=== PATIENT | male | born 1985 | race Caucasian/White ===

== ENCOUNTER 2016-12-05 18:42 | Emergency (ER) | payer OTHER ==
[2016-12-05 18:52] VITALS: BP 153/97; PULSE 85; RESP 20; TEMP 97.3
--- NOTE | 2016-12-05 19:47 | ED ---
ENT HPI - General Chief complaint: Dental/Oral Stated complaint: tooth infection Time Seen by Provider: 12/05/16 19:21 Source: patient, RN notes reviewed Mode of arrival: ambulatory Limitations: no limitations - History of Present Illness Initial comments: Patient is a 31-year-old male presents to the emergency room for evaluation of dental pain. Patient states he has been having dental pain for the past month. Patient states he has been unable to see a dentist. Patient states over the past 4 days he has been having worsening left and right lower dental pain. Patient states he has been taking ibuprofen and applying ice on the outside of his face with no relief of symptoms. Patient denies fevers or chills. Patient states has a headache from the pain. Patient denies facial swelling. Patient denies trouble swallowing or breathing. Patient denies dental trauma recently. - Related Data Home Medications Medication Instructions Recorded Confirmed Budesonide-Formot 160-4.5 Mcg 2 puff INHALATION RT-BID 12/05/16 12/05/16 [Symbicort 160-4.5 Mcg Inhaler] Previous Rx's Medication Instructions Recorded Acetaminophen with Codeine 1 tab PO Q4H PRN #12 tab 12/05/16 [Tylenol w/codeine #3] Penicillin V Potassium [Pen Vee K] 500 mg PO QID #40 tab 12/05/16 Allergies Allergy/AdvReac Type Severity Reaction Status Date / Time No Known Allergies Allergy Verified 12/05/16 19:31 Review of Systems ROS Statement: Those systems with pertinent positive or pertinent negative responses have been documented in the HPI. ROS Other: All systems not noted in ROS Statement are negative. Past Medical History Past Medical History: No Reported History Additional Past Medical History / Comment(s): insomnia History of Any Multi-Drug Resistant Organisms: None Reported Past Surgical History: No Surgical Hx Reported Past Psychological History: Bipolar, PTSD, Schizoaffective Disorder Smoking Status: Current every day smoker Past Alcohol Use History: Occasional Past Drug Use History: Marijuana General Exam - General Exam Comments Initial Comments: Sitting in exam room, no acute distress. Limitations: no limitations General appearance: alert, in no apparent distress Head exam: Present: atraumatic, normocephalic, normal inspection Eye exam: Present: normal appearance Expanded Mouth exam: Present: normal external inspection Teeth exam: Present: dental tenderness # (Tenderness and erosion of teeth #32, 31, 17 and 18) Throat exam: normal inspection Neck exam: Present: normal inspection, full ROM. Absent: tenderness, lymphadenopathy Respiratory exam: Absent: respiratory distress Extremities exam: Present: normal inspection Back exam: Present: normal inspection Neurological exam: Present: alert, oriented X3, CN II-XII intact, normal gait Psychiatric exam: Present: normal affect, normal mood Skin exam: Present: warm, dry, intact, normal color. Absent: rash Course Vital Signs 12/05/16 18:48 Temperature 97.3 F L Pulse Rate 85 Respiratory 20 Rate Blood Pressure 153/97 O2 Sat by Pulse 97 Oximetry Medical Decision Making - Medical Decision Making Patient is 31-year-old male presents emergency room for evaluation of dental pain. Patient advised to follow-up with the dentist. No mouth floor tenderness. Patient be sent home with antibiotics and pain medications. Patient states he understands everything that was discussed with him. Return parameters discussed. Case discussed with Dr. Bailey. Disposition Clinical Impression: Dental caries, Pain due to dental caries Disposition: HOME SELF-CARE Condition: Good Instructions: Dental Caries (ED) Additional Instructions: Please follow up with a dentist. If you do not have a dentist, you may contact [facility]. Phone number is [phone] for existing clients. For new clients you may call [phone]. Another option is you have is the [facility] dental school. Phone number is [phone]. Medications as directed. [place] gargles. Cold fluids can sometimes help with pain as well. Return to the Emergency Room for any worsening or changing symptoms. Use cold compresses to the outside of the face. Prescriptions: Acetaminophen with Codeine [Tylenol w/codeine #3] 1 tab PO Q4H PRN #12 tab PRN Reason: Pain Penicillin V Potassium [Pen Vee K] 500 mg PO QID #40 tab Referrals: None,Stated [Primary Care Provider] - 1-2 days Time of Disposition: 19:42
== END 2016-12-05 19:50 | disposition home or self-care (01) ==
LOC: EC 18:42
DX: K02.9 Dental caries, unspecified (principal); R51 Headache; F17.200 Nicotine dependence, unspecified, uncomplicated; Z79.51 Long term (current) use of inhaled steroids
CPT/HCPCS: 99282

== ENCOUNTER → 2017-02-07 | Outpatient (CLI) | payer OTHER ==
--- NOTE | 2017-02-07 15:24 | MR ---
EXAMINATION TYPE: MR shoulder RT wo con DATE OF EXAM: 02/07/2017 COMPARISON: Right shoulder 05/30/2012 HISTORY: rt shoulder pain TECHNIQUE: Multiplanar, multisequence imaging of the right shoulder is performed without contrast. FINDINGS: The most recent plain film supplied shows superior displacement of the distal clavicle rela tion to the acromion compatible with acromioclavicular separation. Rotator Cuff: Intact, there is motion, some increased signal within the tendon compatible with tendin osis is suspected. Small amount of fluid in the subacromial subdeltoid bursa Acromioclavicular Joint: There is fluid signal present at the acromioclavicular joint, hypertrophic c hanges are present, small ossific density compatible with small chip fracture suspected measuring 5 m m. Suspect there is been remodeling of the distal clavicle due to prior trauma. Cortical clavicular l igament is not well-defined. Glenohumeral Joint: Intact. Labrum: The labrum appears grossly intact given limitation of non-arthrogram study. Biceps Tendon: The long head of biceps is in normal location within bicipital groove. Bone marrow signal: No focal abnormal marrow signal is appreciated. Other: No additional significant abnormality is appreciated. IMPRESSION: Findings likely represent the sequela from acromioclavicular separation, secondary osteoarthritic dereck nge may be present. Plain film correlation may be of benefit. Suspect some tendinosis in the rotator cuff, no breezy tear is evident.
== END | disposition home or self-care (01) ==
LOC: RADMRIMAIN 12:22
PROVIDERS: ATTEND Internal Medicine
DX: M25.511 Pain in right shoulder (principal)

== ENCOUNTER → 2017-09-16 | Outpatient (CLI) | payer OTHER ==
--- NOTE | 2017-09-16 12:38 | XR ---
EXAMINATION TYPE: XR spine complete AP and Lat DATE OF EXAM: 09/16/2017 COMPARISON: NONE HISTORY: Pain TECHNIQUE: Three views of the cervical spine are submitted. FINDINGS: The cervical spine is visualized in its entirety from C1 thru the top of T1 level. It is s atisfactory in alignment without evidence of acute fracture or dislocation. The pre-vertebral soft t issue appears within normal limits. The C1-C2 articulation is unremarkable on the open mouth view. Disc spaces are well preserved. IMPRESSION: No acute fracture or dislocation is seen in the cervical spine. Disc spaces are well pre served. THORACIC SPINE 2 VIEWS. TECHNIQUE: Frontal, lateral, and swimmer's view of thoracic spine are obtained. COMPARISON: None. FINDINGS: Thoracic spine show satisfactory alignment without evidence of acute fracture or dislocatio n. Vertebral body heights are preserved. Disc spaces are well preserved. Visualized ribs are unre markable. IMPRESSION: No acute fracture or dislocation is seen in the thoracic spine. Disc spaces are well pres erved. LUMBAR SPINE X-RAY: TECHNIQUE: Three views of the lumbar spine are submitted. COMPARISON: None. FINDINGS: There are 5 lumbar type vertebral bodies identified. The lumbar spine shows satisfactory alignment without evidence of acute fracture or dislocation. Vertebral body heights are within normal limits. Disc spaces are well preserved. The overlying soft tissue appears unremarkable. IMPRESSION: No acute fracture or dislocation is seen in the lumbar spine. Disc spaces are well pres erved.ICD 10 NO FRACTURE, INITIAL EVALUATION
== END | disposition home or self-care (01) ==
LOC: RADXRMAIN 11:54
PROVIDERS: ATTEND Internal Medicine
DX: R52 Pain, unspecified (principal)
CPT/HCPCS: 72082

== ENCOUNTER 2017-11-16 15:21 | Emergency (ER) | payer OTHER ==
[2017-11-16 15:25] VITALS: BP 155/62; PULSE 94; RESP 20; TEMP 98.1
[2017-11-16] MEDS ORDERED: ACET/COD 300 MG/30 MG STARTER PACK 6 TAB BTL PO STA (15:45)
[2017-11-16] MEDS ORDERED: PENICILLIN VK 500MG STARTER 4 TAB BTL PO STA (15:46)
--- NOTE | 2017-11-16 15:59 | ED ---
General Adult HPI - General Chief complaint: Dental/Oral Stated complaint: Jaw pain Time Seen by Provider: 11/16/17 15:32 Source: patient, RN notes reviewed Mode of arrival: ambulatory Limitations: no limitations - History of Present Illness Initial comments: 32-year-old male presents to the emergency department for a chief complaint of tooth pain times one day. Patient states he was eating a gummy candy yesterday when he felt a crack in his tooth broke. He has had pain ever since. Patient states the area feels a little swollen now as well. Patient denies fever or chills. Patient denies a spreading of the pain and denies radiating pain to the ear or neck. Patient states the cold air hurt it this morning when he was walking. Patient states he does not have a dentist that he follows. He states he has never broken a tooth before now. Patient denies any other complaints including visual changes or pain or stiffness in the neck. Patient states he has not driving home. - Related Data Home Medications Medication Instructions Recorded Confirmed Budesonide-Formot 160-4.5 Mcg 2 puff INHALATION RT-BID 12/05/16 12/05/16 [Symbicort 160-4.5 Mcg Inhaler] Previous Rx's Medication Instructions Recorded Acetaminophen with Codeine 1 tab PO Q4H PRN #12 tab 12/05/16 [Tylenol w/codeine #3] Penicillin V Potassium [Pen Vee K] 500 mg PO QID #40 tab 12/05/16 Acetaminophen-Codeine 300-30mg 1 tab PO Q8H PRN #10 tablet 11/16/17 [Tylenol #3] Penicillin V Potassium [Pen Vee K] 500 mg PO Q6H 10 Days tablet 11/16/17 Allergies Allergy/AdvReac Type Severity Reaction Status Date / Time No Known Allergies Allergy Verified 11/16/17 15:25 Review of Systems ROS Statement: Those systems with pertinent positive or pertinent negative responses have been documented in the HPI. ROS Other: All systems not noted in ROS Statement are negative. Past Medical History Past Medical History: No Reported History Additional Past Medical History / Comment(s): insomnia History of Any Multi-Drug Resistant Organisms: None Reported Past Surgical History: No Surgical Hx Reported Past Psychological History: Bipolar, PTSD, Schizoaffective Disorder Smoking Status: Current every day smoker Past Alcohol Use History: Occasional Past Drug Use History: Marijuana General Exam Limitations: no limitations General appearance: alert, in no apparent distress Head exam: Present: atraumatic, normocephalic, normal inspection Eye exam: Present: normal appearance, PERRL, EOMI. Absent: scleral icterus, conjunctival injection, periorbital swelling ENT exam: Present: mucous membranes moist, TM's normal bilaterally, other ( Patient has a fracture of tooth 18. No swelling noted in the oropharynx. Patient has considerable pain in the left side of the mouth when he bites down on a tongue depressor. Patient does not have too much pain when the tooth is tapped with a tongue depressor. No swelling noted on the left cheek inside or outside of the mouth.) Neck exam: Present: normal inspection, full ROM, other (Patient denies any tenderness or stiffness in the neck.). Absent: tenderness, meningismus, lymphadenopathy Respiratory exam: Present: normal lung sounds bilaterally. Absent: respiratory distress, wheezes, rales, rhonchi, stridor Cardiovascular Exam: Present: regular rate, normal rhythm, normal heart sounds. Absent: systolic murmur, diastolic murmur, rubs, gallop, clicks Course Vital Signs 11/16/17 15:23 Temperature 98.1 F Pulse Rate 94 Respiratory 20 Rate Blood Pressure 155/62 O2 Sat by Pulse 100 Oximetry Medical Decision Making - Medical Decision Making 32-year-old male presents to the emergency department for a chief complaint of tooth pain. This pain started yesterday after he ate gummy candy and he felt his tooth break. Patient does not have a dentist. This is the first time he has had a tooth break. Patient is afebrile and vitals are within normal limits. Patient denies swelling, pain, or stiffness in the neck and no external or internal swelling in the mouth is noted. Patient was given a starter pack of penicillin in the ER to start antibiotic therapy. He was given a starter pack of Tylenol 3 for pain relief. Patient states he is not driving home. He was also written a prescription for both penicillin and Tylenol 3. He was educated that he should continue to take Motrin for pain relief every 6 hours and take Tylenol 3 if the pain is too severe. Patient is to return to the emergency Department if he notices fevers or symptoms worsen. He is to follow up with [facility] in one to 2 days. He was given the contact information for the dental clinic. Disposition Clinical Impression: Tooth abscess Disposition: HOME SELF-CARE Instructions: Toothache (ED), Dental Abscess (ED) Additional Instructions: Please take penicillin as directed. Use ibuprofen for pain relief. If pain is severe use Tylenol 3. You may ice the affected area for pain relief as well. Please follow up with community dental clinic with the directions provided. Please return to the emergency department if you notice a worsening of symptoms or a spreading of infection. Prescriptions: Acetaminophen-Codeine 300-30mg [Tylenol #3] 1 tab PO Q8H PRN #10 tablet PRN Reason: Pain Penicillin V Potassium [Pen Vee K] 500 mg PO Q6H 10 Days tablet Referrals: Javy Tipton MD [Primary Care Provider] - 1-2 days Time of Disposition: 15:50
== END 2017-11-16 15:55 | disposition home or self-care (01) ==
LOC: EC 15:21
DX: K04.7 Periapical abscess without sinus (principal); F17.200 Nicotine dependence, unspecified, uncomplicated; Z79.51 Long term (current) use of inhaled steroids
CPT/HCPCS: 99283

== ENCOUNTER 2017-11-25 17:00 | Emergency (ER) | payer OTHER ==
[2017-11-25 17:31] VITALS: RESP 18
[2017-11-25] MEDS ORDERED: KETOROLAC 30 MG/ML 1 ML VIAL IVP STA (18:41)
[2017-11-25] MEDS ORDERED: SODIUM CHLORIDE 0.9% 1,000 ML IV STA (18:41)
[2017-11-25] MEDS ORDERED: ONDANSETRON 4 MG/2 ML VIAL IVP STA (18:41)
--- NOTE | 2017-11-25 19:01 | ED ---
General Adult HPI - General Chief complaint: Abdominal Pain Stated complaint: Toothache & Back pain Time Seen by Provider: 11/25/17 18:08 Source: patient Mode of arrival: ambulatory Limitations: no limitations - History of Present Illness Initial comments: 32-year-old male patient presents to the emergency department today for multiple complaints. Complaining of right lower dental pain, migraine headache , abdominal pain, constipation, and urinary retention. Patient states that he has had dental pain for quite some time. States he has had abdominal issues over the last 3-4 days. States he last urinated yesterday evening. States he hasn't had a bowel movement in a few days. States he has been vomiting. Denies any hematemesis, hematochezia, or melena. Denies any diarrhea. Denies any fever. States he does have chills. Has a past medical history of schizoaffective disorder and bipolar disorder. Denies taking any medications. Says he has not used any street drugs in over 2 weeks, states he does use tobacco but hasn't had similar in 4 days. Patient denies any recent rash, shortness breath, chest pain, back pain, numbness, tingling, dizziness, weakness , headache, visual changes, or any other complaints. - Related Data Home Medications Medication Instructions Recorded Confirmed Albuterol Inhaler [Ventolin Hfa 2 puff INHALATION RT-Q6H PRN 11/25/17 11/25/17 Inhaler] Previous Rx's Medication Instructions Recorded Acetaminophen-Codeine 300-30mg 1 tab PO Q6H PRN #12 tablet 11/25/17 [Tylenol #3] Amoxic-Pot Clav 875-125Mg 1 tab PO Q12HR #20 tablet 11/25/17 [Augmentin 875-125] Allergies Allergy/AdvReac Type Severity Reaction Status Date / Time No Known Allergies Allergy Verified 11/25/17 18:37 Review of Systems ROS Statement: Those systems with pertinent positive or pertinent negative responses have been documented in the HPI. ROS Other: All systems not noted in ROS Statement are negative. Past Medical History Past Medical History: No Reported History Additional Past Medical History / Comment(s): insomnia History of Any Multi-Drug Resistant Organisms: None Reported Past Surgical History: No Surgical Hx Reported Past Psychological History: Bipolar, PTSD, Schizoaffective Disorder Smoking Status: Current every day smoker Past Alcohol Use History: Occasional Past Drug Use History: Marijuana General Exam Limitations: no limitations General appearance: alert, in no apparent distress, other (Physical well- developed, well-nourished adult male patient in mild distress related to pain. Vital signs upon presentation are temperature 97.9F, pulse 57, respirations 18 , blood pressure 144/91, pulse ox 99% on room air.) Eye exam: Present: normal appearance, PERRL, EOMI. Absent: scleral icterus, conjunctival injection, periorbital swelling ENT exam: Present: normal exam, normal oropharynx, mucous membranes moist Respiratory exam: Present: normal lung sounds bilaterally. Absent: respiratory distress, wheezes, rales, rhonchi, stridor Cardiovascular Exam: Present: regular rate, normal rhythm, normal heart sounds. Absent: systolic murmur, diastolic murmur, rubs, gallop, clicks GI/Abdominal exam: Present: soft, tenderness (Generalized abdominal tenderness) , normal bowel sounds. Absent: distended, guarding, rebound, rigid Neurological exam: Present: alert, oriented X3, CN II-XII intact Psychiatric exam: Present: normal affect, normal mood Skin exam: Present: warm, dry, intact, normal color. Absent: rash Course Vital Signs 11/25/17 11/25/17 17:29 21:08 Temperature 97.9 F 98 F Pulse Rate 57 L 65 Respiratory 18 18 Rate Blood Pressure 144/91 123/54 O2 Sat by Pulse 99 99 Oximetry Medical Decision Making - Medical Decision Making 32-year-old male patient presented to the emergency department today with complaints of dental pain, back pain, abdominal pain, and constipation. Physical examination did reveal some paraspinal tenderness over the lower thoracic region. Abdomen was tender throughout. He also had very poor dentition with multiple broken teeth on the right lower jaw. Labs reviewed and did reveal white blood cell count of 18.6, neutrophil count of 14.8, urine showed trace ketones only. I did obtain a computed tomography scan of the abdomen and pelvis which showed no acute abnormalities. Patient is afebrile with no tachycardia. Patient did receive IV fluids and Toradol here in the department. Upon reevaluation patient is much more comfortable, states that the pain in his tooth is gone completely. Patient was currently taking penicillin for dental infection. We will change this to Augmentin. He'll be given a prescription for Tylenol 3 with codeine for dental pain. He is instructed to follow-up with the dentist as soon as possible, does report concerns for transportation he was given contact information for [facility]. Return parameters were discussed in detail. He is instructed to return here immediately for any new, worsening, or concerning symptoms. He verbalizes understanding and agrees with this plan. - Lab Data Result diagrams: 11/25/17 19:20 11/25/17 19:20 Lab Results 11/25/17 11/25/17 11/25/17 Range/Units 19:20 19:20 20:19 WBC 18.6 H (3.8-10.6) k/uL RBC 5.15 (4.30-5.90) m/uL Hgb 15.3 (13.0-17.5) gm/dL Hct 44.8 (39.0-53.0) % MCV 87.0 (80.0-100.0) fL MCH 29.7 (25.0-35.0) pg MCHC 34.1 (31.0-37.0) g/dL RDW 13.1 (11.5-15.5) % Plt Count 333 (150-450) k/uL Neutrophils % 80 % Lymphocytes % 12 % Monocytes % 6 % Eosinophils % 1 % Basophils % 0 % Neutrophils # 14.8 H (1.3-7.7) k/uL Lymphocytes # 2.3 (1.0-4.8) k/uL Monocytes # 1.1 H (0-1.0) k/uL Eosinophils # 0.2 (0-0.7) k/uL Basophils # 0.1 (0-0.2) k/uL Sodium 142 (137-145) mmol/L Potassium 4.1 (3.5-5.1) mmol/L Chloride 106 (98-107) mmol/L Carbon Dioxide 16 L (22-30) mmol/L Anion Gap 20 mmol/L BUN 18 (9-20) mg/dL Creatinine 0.80 (0.66-1.25) mg/dL Est GFR (CKD-EPI)AfAm >90 (>60 ml/min/1.73 sqM) Est GFR (CKD-EPI)NonAf >90 (>60 ml/min/1.73 sqM) Glucose 106 H (74-99) mg/dL Calcium 10.6 H (8.4-10.2) mg/dL Total Bilirubin 0.5 (0.2-1.3) mg/dL AST 20 (17-59) U/L ALT 38 (21-72) U/L Alkaline Phosphatase 71 (38-126) U/L Total Protein 8.1 (6.3-8.2) g/dL Albumin 4.5 (3.5-5.0) g/dL Amylase 51 (30-110) U/L Lipase 48 (23-300) U/L Urine Color Yellow Urine Appearance Clear (Clear) Urine pH 5.5 (5.0-8.0) Ur Specific [place] 1.019 (1.001-1.035) Urine Protein Negative (Negative) Urine Glucose (UA) Negative (Negative) Urine Ketones Trace H (Negative) Urine Blood Negative (Negative) Urine Nitrite Negative (Negative) Urine Bilirubin Negative (Negative) Urine Urobilinogen <2.0 (<2.0) mg/dL Ur Leukocyte Esterase Negative (Negative) - Radiology Data Radiology results: report reviewed, image reviewed 2 views of the abdomen showed bowel gas pattern is normal. No sign of intestinal obstruction or pneumoperitoneum. Fecal pattern is normal. Lung bases are clear. There are no pathologic calcifications. Impression shows nonacute abdomen, impression is by Dr. Esquivel CT of the abdomen and pelvis with contrast was obtained. Report was reviewed in its entirety. Impression by Dr. Esquivel shows negative computed tomography scan of the abdomen and pelvis. Normal appendix. No evidence of renal stone or obstruction. Disposition Clinical Impression: Abdominal pain, Back pain, Fractured tooth Disposition: HOME SELF-CARE Condition: Good Instructions: Abdominal Pain (ED), Toothache (ED), Back Pain (ED) Additional Instructions: Apply warm moist heat to the back. Take medications as directed. Follow-up with dentist as soon as possible. Return here immediately for any new, worsening, or concerning symptoms. Prescriptions: Acetaminophen-Codeine 300-30mg [Tylenol #3] 1 tab PO Q6H PRN #12 tablet PRN Reason: Pain Amoxic-Pot Clav 875-125Mg [Augmentin 875-125] 1 tab PO Q12HR #20 tablet Referrals: Javy Tipton MD [Primary Care Provider] - 1-2 days Time of Disposition: 21:28
[2017-11-25 19:34] LABS: Basophils # (A) 0.1 k/uL (0-0.2); Basophils % (A) 0 %; Eosinophils # (A) 0.2 k/uL (0-0.7); Eosinophils % (A) 1 %; HCT 44.8 % (39.0-53.0); HGB 15.3 gm/dL (13.0-17.5); Lymphocytes # (A) 2.3 k/uL (1.0-4.8); Lymphocytes % (A) 12 %; MCH 29.7 pg (25.0-35.0); MCHC 34.1 g/dL (31.0-37.0); Mean Platelet Volume 7.2; Monocytes # (A) 1.1 k/uL (0-1.0); Monocytes % (A) 6 %; Neutrophils # (A) 14.8 k/uL (1.3-7.7); Neutrophils % (A) 80 %; Platelet Count 333 k/uL (150-450); RBC 5.15 m/uL (4.30-5.90); RDW 13.1 % (11.5-15.5); WBC 18.6 k/uL (3.8-10.6)
--- NOTE | 2017-11-25 19:35 | XR ---
EXAMINATION TYPE: XR KUB DATE OF EXAM: 11/25/2017 COMPARISON: NONE HISTORY: Bilateral flank pain TECHNIQUE: 2 views FINDINGS: Bowel gas pattern is normal. I see no sign of intestinal obstruction or pneumoperitoneum. F ecal pattern is normal. Lung bases are clear. There are no pathologic calcifications. IMPRESSION: Nonacute abdomen.
[2017-11-25 19:48] LABS: ALT 38 U/L (21-72); AST 20 U/L (17-59); Albumin 4.5 g/dL (3.5-5.0); Alkaline Phosphatase 71 U/L (38-126); Amylase 51 U/L (30-110); Anion Gap 20 mmol/L; Blood Urea Nitrogen 18 mg/dL (9-20); Calcium 10.6 mg/dL (8.4-10.2); Carbon Dioxide 16 mmol/L (22-30); Chloride 106 mmol/L (98-107); Glucose 106 mg/dL (74-99); Lipase 48 U/L (23-300); Potassium 4.1 mmol/L (3.5-5.1); Sodium 142 mmol/L (137-145); Total Bilirubin 0.5 mg/dL (0.2-1.3); Total Protein 8.1 g/dL (6.3-8.2)
[2017-11-25 20:21] LABS: Appearance,Urine Clear (Clear); Bilirubin,Urine Negative (Negative); Blood,Urine Negative (Negative); Color,Urine Yellow; Glucose,Urine (UA) Negative (Negative); Ketones,Urine Trace (Negative); Leukocyte Esterase,Urine Negative (Negative); Nitrite,Urine Negative (Negative); PH, Urine 5.5 (5.0-8.0); Protein,Urine Negative (Negative); Specific Gravity,Urine 1.019 (1.001-1.035); Urobilinogen,Urine <2.0 mg/dL (<2.0)
[2017-11-25] MEDS ORDERED: RX INFO: IV CONTRAST WAS GIVEN 1 EACH MISC MISCELLANE PRN (20:27)
--- NOTE | 2017-11-25 21:04 | CT ---
EXAMINATION TYPE: CT abdomen pelvis w con DATE OF EXAM: 11/25/2017 COMPARISON: NONE HISTORY: Generalized abd and back pain. CT DLP: 548.2 mGycm Automated exposure control for dose reduction was used. TECHNIQUE: Helical acquisition of images was performed from the lung bases through the pelvis. CONTRAST: Performed without Oral Contrast and with IV Contrast, patient injected with 100ml mL of Isovue 300. FINDINGS: Lung bases are clear. There is no pleural effusion. Heart size is normal. Liver spleen pancreas gallbladder appear normal. Bile ducts are not dilated. There is no adrenal mass. Kidneys show satisfactory contrast opacification. There is no hydronephrosi s. There is no retroperitoneal adenopathy. Appendix appears normal. I see no intestinal wall thickening. There are no dilated loops. Bladder distends smoothly. There is no sign of a pelvic mass. I see no bony destructive process. There is no evidence of a hernia. IMPRESSION: NEGATIVE CT SCAN OF THE ABDOMEN AND PELVIS. NORMAL APPENDIX. NO EVIDENCE OF RENAL STONE OR OBSTRUCTIO N.
[2017-11-25 21:09] VITALS: BP 123/54; PULSE 65; TEMP 98
== END 2017-11-25 21:39 | disposition home or self-care (01) ==
LOC: EC 17:00
DX: S02.5XXA Fracture of tooth (traumatic), initial encounter for closed fracture (principal); R10.9 Unspecified abdominal pain; M54.9 Dorsalgia, unspecified; K59.00 Constipation, unspecified; R33.9 Retention of urine, unspecified; G43.909 Migraine, unspecified, not intractable, without status migrainosus; F17.200 Nicotine dependence, unspecified, uncomplicated
CPT/HCPCS: 99284; 96374; 96375; 96361 ×2; 36415; 80053; 82150; 83690; 85025; 81003; 74018; 74177; J2405; J1885; Q9967

== ENCOUNTER 2018-04-09 13:15 | Emergency (ER) | payer OTHER ==
[2018-04-09] MEDS ORDERED: LORazepam 2 MG/ML INJ IV STA (14:09)
--- NOTE | 2018-04-09 14:13 | ED ---
General Adult HPI - General Chief complaint: Fall Stated complaint: fall Time Seen by Provider: 04/09/18 13:52 Source: patient, RN notes reviewed Mode of arrival: wheelchair Limitations: physical limitation - History of Present Illness Initial comments: Patient is a pleasant 32-year-old male presenting to the emergency department following a fall. Patient states he was drinking alcohol at home last night. Patient fell down the flight of steps to the basement. Patient states she was able to get back up steps and then lied down and fell asleep throughout the night. Patient woke up this morning. Patient is having difficulty walking which she attributes to his discomfort on the right ribs. Patient states he has been coughing up dark looking blood since last night. Patient states bystanders told them he had a seizure when he arrived to the emergency department. Patient states he did urinate on himself during this. Patient does admit to having chronic problems with pain with his neck and right arm and he does see a neurologist for this. - Related Data Home Medications Medication Instructions Recorded Confirmed Albuterol Inhaler [Ventolin Hfa 2 puff INHALATION RT-Q6H PRN 11/25/17 04/09/18 Inhaler] tiZANidine [Zanaflex] 4 mg PO BID PRN 04/09/18 04/09/18 Allergies Allergy/AdvReac Type Severity Reaction Status Date / Time No Known Allergies Allergy Verified 04/09/18 15:13 Review of Systems ROS Statement: Those systems with pertinent positive or pertinent negative responses have been documented in the HPI. ROS Other: All systems not noted in ROS Statement are negative. Constitutional: Denies: fever Eyes: Denies: eye pain ENT: Denies: ear pain Respiratory: Reports: dyspnea, hemoptysis Cardiovascular: Reports: chest pain (Right-sided rib) Endocrine: Denies: fatigue Gastrointestinal: Denies: abdominal pain Genitourinary: Denies: dysuria Musculoskeletal: Denies: back pain Skin: Denies: rash Neurological: Denies: weakness Past Medical History Past Medical History: No Reported History Additional Past Medical History / Comment(s): insomnia History of Any Multi-Drug Resistant Organisms: None Reported Past Surgical History: No Surgical Hx Reported Past Psychological History: Bipolar, PTSD, Schizoaffective Disorder Smoking Status: Current every day smoker Past Alcohol Use History: Occasional Past Drug Use History: Marijuana General Exam Limitations: physical limitation General appearance: alert, in no apparent distress Head exam: Present: other (Soft tissue swelling over the right eyebrow) Eye exam: Present: normal appearance, PERRL, EOMI ENT exam: Present: normal oropharynx Neck exam: Present: normal inspection. Absent: tenderness Respiratory exam: Present: normal lung sounds bilaterally, chest wall tenderness (Right lateral mid ribs) Cardiovascular Exam: Present: regular rate, normal rhythm Expanded Peripheral pulses: 2+: Radial (R), Radial (L), Dorsalis Pedis (R), Dorsalis Pedis (L) GI/Abdominal exam: Present: soft, tenderness (Moderate tenderness to the upper abdomen), normal bowel sounds. Absent: distended, guarding, rebound, rigid, pulsatile mass Extremities exam: Present: normal inspection, full ROM. Absent: tenderness Neurological exam: Present: alert, oriented X3, CN II-XII intact. Absent: motor sensory deficit Expanded Neurological exam: Present: protecting the airway Speech: Present: fluid speech Cranial nerves: Facial Sensation: Normal Sensory exam: Upper Extremity Light Touch: Normal, Lower Extremity Light Touch: Normal Motor strength exam: RUE: 5, LUE: 5, RLE: 5 (Somewhat limited by pain), LLE: 5 ( Somewhat limited by pain) Eye Response: (4) open spontaneously Motor Response: (6) obeys commands Verbal Response: (5) oriented Psychiatric exam: Present: normal affect, normal mood Skin exam: Present: other (Soft tissue swelling right eyebrow) Course Vital Signs 04/09/18 04/09/18 13:28 15:33 Temperature 97.4 F L Pulse Rate 59 L 65 Respiratory 20 18 Rate Blood Pressure 107/62 124/75 O2 Sat by Pulse 99 96 Oximetry EKG Findings - EKG Comments: EKG Findings:: Sinus bradycardia 58. MD 128. QRS 84. QT 416. QTC 408. Normal axis. Normal QRS. No acute ST change. Medical Decision Making - Medical Decision Making Patient reevaluated and resting comfortably in bed. Patient family updated on results and plan. Secondary to syncopal versus seizure following, last night as well as a seizure upon arrival here it is felt best to have patient observed overnight. Secondary to neurology unable to evaluate patient. Case was discussed in detail with Dr. Jeffrey at [facility], who will accept transfer. Patient is updated. Patient states normally he is not a big drinker of alcohol. - Lab Data Result diagrams: 04/09/18 14:11 04/09/18 14:11 Lab Results 04/09/18 04/09/18 04/09/18 Range/Units 14:11 14:11 14:11 WBC 14.3 H (3.8-10.6) k/uL RBC 4.72 (4.30-5.90) m/uL Hgb 14.3 (13.0-17.5) gm/dL Hct 43.6 (39.0-53.0) % MCV 92.3 (80.0-100.0) fL MCH 30.3 (25.0-35.0) pg MCHC 32.8 (31.0-37.0) g/dL RDW 13.8 (11.5-15.5) % Plt Count 212 (150-450) k/uL Neutrophils % 84 % Lymphocytes % 8 % Monocytes % 6 % Eosinophils % 1 % Basophils % 0 % Neutrophils # 12.1 H (1.3-7.7) k/uL Lymphocytes # 1.2 (1.0-4.8) k/uL Monocytes # 0.8 (0-1.0) k/uL Eosinophils # 0.1 (0-0.7) k/uL Basophils # 0.0 (0-0.2) k/uL PT (9.0-12.0) sec INR (<1.2) APTT (22.0-30.0) sec Sodium 139 (137-145) mmol/L Potassium 4.8 (3.5-5.1) mmol/L Chloride 107 (98-107) mmol/L Carbon Dioxide 22 (22-30) mmol/L Anion Gap 10 mmol/L BUN 21 H (9-20) mg/dL Creatinine 0.85 (0.66-1.25) mg/dL Est GFR (CKD-EPI)AfAm >90 (>60 ml/min/1.73 sqM) Est GFR (CKD-EPI)NonAf >90 (>60 ml/min/1.73 sqM) Glucose 90 (74-99) mg/dL Calcium 10.4 H (8.4-10.2) mg/dL Total Bilirubin 1.0 (0.2-1.3) mg/dL AST 33 (17-59) U/L ALT 46 (21-72) U/L Alkaline Phosphatase 61 (38-126) U/L Total Creatine Kinase 154 (55-170) U/L CK-MB (CK-2) 1.4 (0.0-2.4) ng/mL CK-MB (CK-2) Rel Index 0.9 Troponin I <0.012 (0.000-0.034) ng/mL Total Protein 7.3 (6.3-8.2) g/dL Albumin 4.3 (3.5-5.0) g/dL Urine Opiates Screen (NotDetected) Ur Oxycodone Screen (NotDetected) Urine Methadone Screen (NotDetected) Ur Propoxyphene Screen (NotDetected) Ur Barbiturates Screen (NotDetected) U Tricyclic Antidepress (NotDetected) Ur Phencyclidine Scrn (NotDetected) Ur Amphetamines Screen (NotDetected) U Methamphetamines Scrn (NotDetected) U Benzodiazepines Scrn (NotDetected) Urine Cocaine Screen (NotDetected) U Marijuana (THC) Screen (NotDetected) Serum Alcohol <10 mg/dL 04/09/18 04/09/18 Range/Units 14:11 15:40 WBC (3.8-10.6) k/uL RBC (4.30-5.90) m/uL Hgb (13.0-17.5) gm/dL Hct (39.0-53.0) % MCV (80.0-100.0) fL MCH (25.0-35.0) pg MCHC (31.0-37.0) g/dL RDW (11.5-15.5) % Plt Count (150-450) k/uL Neutrophils % % Lymphocytes % % Monocytes % % Eosinophils % % Basophils % % Neutrophils # (1.3-7.7) k/uL Lymphocytes # (1.0-4.8) k/uL Monocytes # (0-1.0) k/uL Eosinophils # (0-0.7) k/uL Basophils # (0-0.2) k/uL PT 10.2 (9.0-12.0) sec INR 1.0 (<1.2) APTT 19.8 L (22.0-30.0) sec Sodium (137-145) mmol/L Potassium (3.5-5.1) mmol/L Chloride (98-107) mmol/L Carbon Dioxide (22-30) mmol/L Anion Gap mmol/L BUN (9-20) mg/dL Creatinine (0.66-1.25) mg/dL Est GFR (CKD-EPI)AfAm (>60 ml/min/1.73 sqM) Est GFR (CKD-EPI)NonAf (>60 ml/min/1.73 sqM) Glucose (74-99) mg/dL Calcium (8.4-10.2) mg/dL Total Bilirubin (0.2-1.3) mg/dL AST (17-59) U/L ALT (21-72) U/L Alkaline Phosphatase (38-126) U/L Total Creatine Kinase (55-170) U/L CK-MB (CK-2) (0.0-2.4) ng/mL CK-MB (CK-2) Rel Index Troponin I (0.000-0.034) ng/mL Total Protein (6.3-8.2) g/dL Albumin (3.5-5.0) g/dL Urine Opiates Screen Not Detected (NotDetected) Ur Oxycodone Screen Not Detected (NotDetected) Urine Methadone Screen Not Detected (NotDetected) Ur Propoxyphene Screen Not Detected (NotDetected) Ur Barbiturates Screen Not Detected (NotDetected) U Tricyclic Antidepress Not Detected (NotDetected) Ur Phencyclidine Scrn Not Detected (NotDetected) Ur Amphetamines Screen Not Detected (NotDetected) U Methamphetamines Scrn Not Detected (NotDetected) U Benzodiazepines Scrn Not Detected (NotDetected) Urine Cocaine Screen Detected H (NotDetected) U Marijuana (THC) Screen Detected H (NotDetected) Serum Alcohol mg/dL - Radiology Data Radiology results: report reviewed (Computed tomography scan of the brain, cervical spine, chest abdomen and pelvis revealed no acute abnormality.), image reviewed (Chest and pelvis x-rays show no acute process) Disposition Clinical Impression: Head injury, Seizure Disposition: OTHER INSTITUTION NOT DEFINED Is patient prescribed a controlled substance at d/c from ED?: No Referrals: Javy Tpiton MD [Primary Care Provider] - 1-2 days Time of Disposition: 16:14 - Out of Hospital Transfer - Req. Specs Out of Hospital Transfer - Requested Specifics: Other Emergency Center
--- NOTE | 2018-04-09 14:50 | XR ---
EXAMINATION TYPE: XR pelvis AP view DATE OF EXAM: 04/09/2018 CLINICAL HISTORY: Fall injury with pain. TECHNIQUE: A single AP view of the pelvis is obtained. COMPARISON: None. FINDINGS: There is no acute fracture/dislocation evident in the pelvis. The hip and sacroiliac join ts appear symmetric and unremarkable. The overlying soft tissue appears unremarkable. IMPRESSION: There is no acute fracture or dislocation in the pelvis.
--- NOTE | 2018-04-09 14:51 | XR ---
EXAMINATION TYPE: XR chest 1V portable DATE OF EXAM: 04/09/2018 COMPARISON: Prior chest x-ray July 26, 2010. HISTORY: Fall injury with pain. TECHNIQUE: Single AP portable frontal supine view of the chest is obtained. FINDINGS: There is no focal air space opacity, pleural effusion, or pneumothorax seen. The cardiac silhouette size is within normal limits. The osseous structures are intact. IMPRESSION: No acute process.
[2018-04-09 14:56] LABS: ALT 46 U/L (21-72); AST 33 U/L (17-59); Albumin 4.3 g/dL (3.5-5.0); Alcohol <10 mg/dL; Alkaline Phosphatase 61 U/L (38-126); Anion Gap 10 mmol/L; Blood Urea Nitrogen 21 mg/dL (9-20); Calcium 10.4 mg/dL (8.4-10.2); Carbon Dioxide 22 mmol/L (22-30); Chloride 107 mmol/L (98-107); Glucose 90 mg/dL (74-99); Potassium 4.8 mmol/L (3.5-5.1); Sodium 139 mmol/L (137-145); Total Protein 7.3 g/dL (6.3-8.2)
[2018-04-09 15:02] LABS: Basophils % (A) 0 %; Eosinophils # (A) 0.1 k/uL (0-0.7); Eosinophils % (A) 1 %; HCT 43.6 % (39.0-53.0); HGB 14.3 gm/dL (13.0-17.5); Lymphocytes # (A) 1.2 k/uL (1.0-4.8); Lymphocytes % (A) 8 %; MCH 30.3 pg (25.0-35.0); MCHC 32.8 g/dL (31.0-37.0); MCV 92.3 fL (80.0-100.0); Mean Platelet Volume 6.9; Monocytes # (A) 0.8 k/uL (0-1.0); Monocytes % (A) 6 %; Neutrophils # (A) 12.1 k/uL (1.3-7.7); Neutrophils % (A) 84 %; Platelet Count 212 k/uL (150-450); RBC 4.72 m/uL (4.30-5.90); RDW 13.8 % (11.5-15.5); WBC 14.3 k/uL (3.8-10.6)
[2018-04-09 15:07] LABS: Creatine Kinase 154 U/L (55-170)
[2018-04-09 15:09] LABS: Prothrombin Time 10.2 sec (9.0-12.0)
[2018-04-09 15:12] LABS: Partial Thromboplastin Time 19.8 sec (22.0-30.0)
[2018-04-09 15:17] LABS: Creatine Kinase MB 1.4 ng/mL (0.0-2.4)
[2018-04-09 15:21] LABS: Troponin I <0.012 ng/mL (0.000-0.034)
--- NOTE | 2018-04-09 15:37 | CT ---
EXAMINATION TYPE: CT brain radha wo con DATE OF EXAM: 04/09/2018 COMPARISON: HISTORY: Fall injury, seizure CT DLP: 1708 mGycm, Automated exposure control for dose reduction was used. CONTRAST: None CT of the brain is performed utilizing 3 mm thick sections through the posterior fossa and 3 mm thick sections through the remaining calvarium. Study is performed within 24 hours of arrival to the hospital. No abnormal hyperdensity is present to suggest an acute intracranial hemorrhage. No mass lesion is evident. No acute infarcts are evident. Ventricles and sulci are appropriate for the patient age. Paranasal sinuses and mastoid air cells within the [id number] are clear. IMPRESSIONS: 1. Normal CT brain. CT cervical spine. COMPARISON: None CT of the cervical spine is performed in the axial plane at 2 mm thick sections. Reconstructed image s in the coronal, and sagittal plane are reviewed on the computer. No acute fractures are evident. Vertebral body alignment is normal. Some mild straightening can related patient positioning. Disc heights are preserved. Vertebral body heights are preserved. No spinal canal stenosis is evident. No neural foraminal stenosis is evident. IMPRESSIONS: 1. Normal CT cervical spine.
--- NOTE | 2018-04-09 15:42 | CT ---
EXAMINATION TYPE: CT ChestAbdPelvis w con DATE OF EXAM: 04/09/2018 INDICATION: Fall injury, seizure COMPARISON: CT DLP: 1162 mGycm CONTRAST: Performed without Oral Contrast and with IV Contrast, patient injected with 100 mL of Isovue 300. TECHNIQUE: Axial images at 5 mm thick sections. Reconstructed images in the coronal plane. Delayed images through the kidneys. FINDINGS: CT CHEST: Portion of the thyroid visualized is normal. No suspicious lung nodules or focal infiltrates are present. No pneumothorax is evident. No enlarged mediastinal or hilar adenopathy is evident. The ascending aorta diameter at the level of the main pulmonary artery is 3.2 cm. The main pulmonary artery diameter at the bifurcation is 2.[address] ABDOMEN: Liver: Normal Spleen: Normal Pancreas: Normal Adrenal glands: The adrenal glands are normal. Gallbladder: Normal Kidneys: No masses are evident. No hydronephrosis is present. No cysts are present. Delayed images were obtained through the kidneys, which remain unremarkable. Aorta: Vascular calcification is within the aorta. Inferior vena cava: Normal. CT PELVIS: Loops of bowel within the abdomen and pelvis are normal. Study is performed without oral contrast limiting their evaluation. Appendix: Normal as visualized. Urinary bladder: Normal. Genitourinary structures: Prostate is unremarkable. Osseous structures: No suspicious lytic or sclerotic lesions. No acute fractures are evident. IMPRESSIONS: 1. No acute posttraumatic changes.
[2018-04-09] MEDS ORDERED: levETIRAcetam IV 1,000 MG in SALINE 1 100ML.BAG IVPB STA (15:59)
[2018-04-09 16:07] LABS: Amphetamine Screen,Urine Not Detected (NotDetected); Barbiturate Screen,Urine Not Detected (NotDetected); Benzodiazepines Screen,Urine Not Detected (NotDetected); Cocaine Screen,Urine Detected (NotDetected); Methadone Screen, Urine Not Detected (NotDetected); Opiate Screen,Urine Not Detected (NotDetected); Oxycodone Screen, Urine Not Detected (NotDetected); Phencyclidine Screen,Urine Not Detected (NotDetected); Tricyclic Antidepressant,Urine Not Detected (NotDetected); Urn Cannabinoid Scrn Detected (NotDetected)
[2018-04-09] MEDS ORDERED: HYDROmorphone 0.5 MG/0.5 ML SYRINGE IVP STA (16:28)
[2018-04-09 18:00] VITALS: BP 126/69; PULSE 60; RESP 16; TEMP 98.3
[2018-04-09 23:07] LABS: Appearance,Urine Clear (Clear); Bacteria,Urine Rare /hpf; Bilirubin,Urine Negative (Negative); Blood,Urine Moderate (Negative); Color,Urine Yellow; Glucose,Urine (UA) Negative (Negative); Hyaline Casts,Urine 1 /lpf (0-2); Ketones,Urine Negative (Negative); Leukocyte Esterase,Urine Negative (Negative); Mucus,Urine Rare /hpf; Nitrite,Urine Negative (Negative); Protein,Urine Trace (Negative); RBC,Urine 9 /hpf (0-5); Specific Gravity,Urine 1.034 (1.001-1.035); Squamous Epithelial Cell,Urine <1 /hpf (0-4); WBC,Urine 5 /hpf (0-5)
== END 2018-04-09 17:45 | disposition other institution (70) ==
LOC: EC 13:15
DX: S09.90XA Unspecified injury of head, initial encounter (principal); R56.9 Unspecified convulsions; M54.2 Cervicalgia; M79.601 Pain in right arm; R04.2 Hemoptysis; R40.2142 Coma scale, eyes open, spontaneous, at arrival to emergency department; R40.2252 Coma scale, best verbal response, oriented, at arrival to emergency department; R40.2362 Coma scale, best motor response, obeys commands, at arrival to emergency department; F17.200 Nicotine dependence, unspecified, uncomplicated; W10.9XXA Fall (on) (from) unspecified stairs and steps, initial encounter
CPT/HCPCS: 36415; 70450; 71045; 71260; 72125; 72170; 74177; 80053; 80306; 80320; 81001; 82550; 82553; 84484; 85025; 85610; 85730; 93005; 96374; 96375; 99285

== ENCOUNTER 2018-07-11 11:58 | Inpatient (IN) | payer MEDICAID, OTHER ==
--- NOTE | 2018-07-11 14:34 | ED ---
Psych HPI - General Chief Complaint: Psychiatric Symptoms Stated Complaint: Tired/all the time Time Seen by Provider: 07/11/18 13:47 Source: patient, RN notes reviewed Mode of arrival: ambulatory - History of Present Illness Initial Comments: 32-year-old male presents emergency Department chief complaint of depression. Patient states that he is severely depressed states that he has no ambition no drive states that all he does is sleep all day. He does admit to alcohol and drug problem states he recently been smoking marijuana see the house. Patient states she's been several medications for depression but on no current meds now. Patient states that he has had some thoughts of harming self but he has not acted upon them. He states that he felt that he didn't overdose on drugs ordered and performed vehicle. He denies any homicidal ideation. Denies any chest pain or shortness of breath. He states he does not eat well and states he does not take care of herself. - Related Data Home Medications Medication Instructions Recorded Confirmed Albuterol Inhaler [Ventolin Hfa 2 puff INHALATION RT-Q6H PRN 11/25/17 07/11/18 Inhaler] Allergies Allergy/AdvReac Type Severity Reaction Status Date / Time No Known Allergies Allergy Verified 07/11/18 14:18 Review of Systems ROS Statement: Those systems with pertinent positive or pertinent negative responses have been documented in the HPI. ROS Other: All systems not noted in ROS Statement are negative. Past Medical History Past Medical History: No Reported History Additional Past Medical History / Comment(s): insomnia History of Any Multi-Drug Resistant Organisms: None Reported Past Surgical History: No Surgical Hx Reported Past Psychological History: Bipolar, PTSD, Schizoaffective Disorder Smoking Status: Current every day smoker Past Alcohol Use History: Occasional Past Drug Use History: Marijuana General Exam Limitations: no limitations General appearance: alert, in no apparent distress Head exam: Present: atraumatic, normocephalic, normal inspection ENT exam: Present: normal exam, mucous membranes moist Neck exam: Present: normal inspection. Absent: tenderness, meningismus, lymphadenopathy Respiratory exam: Present: normal lung sounds bilaterally. Absent: respiratory distress, wheezes, rales, rhonchi, stridor Cardiovascular Exam: Present: regular rate, normal rhythm, normal heart sounds. Absent: systolic murmur, diastolic murmur, rubs, gallop, clicks Neurological exam: Present: alert, oriented X3, CN II-XII intact. Absent: motor sensory deficit Psychiatric exam: Present: depressed Skin exam: Present: warm, dry, intact, normal color. Absent: rash Course Vital Signs 07/11/18 13:10 Temperature 97.8 F Pulse Rate 68 Respiratory 16 Rate Blood Pressure 127/87 O2 Sat by Pulse 97 Oximetry Medical Decision Making - Lab Data Lab Results 07/11/18 Range/Units 14:53 Urine Opiates Screen Not Detected (NotDetected) Ur Oxycodone Screen Not Detected (NotDetected) Urine Methadone Screen Not Detected (NotDetected) Ur Propoxyphene Screen Not Detected (NotDetected) Ur Barbiturates Screen Not Detected (NotDetected) U Tricyclic Antidepress Not Detected (NotDetected) Ur Phencyclidine Scrn Not Detected (NotDetected) Ur Amphetamines Screen Not Detected (NotDetected) U Methamphetamines Scrn Not Detected (NotDetected) U Benzodiazepines Scrn Not Detected (NotDetected) Urine Cocaine Screen Detected H (NotDetected) U Marijuana (THC) Screen Detected H (NotDetected) Disposition Clinical Impression: Depression, Suicidal ideation Disposition: ADMITTED IP TO THIS HOSP Referrals: None,Stated [Primary Care Provider] - 1-2 days
[2018-07-11 15:31] LABS: Amphetamine Screen,Urine Not Detected (NotDetected); Barbiturate Screen,Urine Not Detected (NotDetected); Benzodiazepines Screen,Urine Not Detected (NotDetected); Cocaine Screen,Urine Detected (NotDetected); Methadone Screen, Urine Not Detected (NotDetected); Opiate Screen,Urine Not Detected (NotDetected); Oxycodone Screen, Urine Not Detected (NotDetected); Phencyclidine Screen,Urine Not Detected (NotDetected); Tricyclic Antidepressant,Urine Not Detected (NotDetected); Urn Cannabinoid Scrn Detected (NotDetected)
[2018-07-11] MEDS ORDERED: ALBUTEROL NEBULIZED 2.5 MG/3 ML INHALATION STA (16:41)
[2018-07-11] MEDS ORDERED: MAGNESIUM HYDROXIDE 2,400 MG/10 ML CUP PO PRN (17:35)
[2018-07-11] MEDS ORDERED: MAG HYDROX/AL HYDROX/SIMETH 30 ML CUP PO PRN (17:35)
[2018-07-11] MEDS ORDERED: LORazepam 2 MG/ML INJ IM PRN (17:40)
[2018-07-11] MEDS ORDERED: NICOTINE 14MG/24HR PATCH TRANSDERM SCH (17:45)
[2018-07-11 17:59] VITALS: BMI 25.0
--- NOTE | 2018-07-11 20:22 | P.HPIM ---
History of Present Illness H&P Date: 07/11/18 Chief Complaint: sleeping all the time Patient is a 32 yo CM with a hx of asthma, degenerative disc disease with sciatica, bipolar disorder, and schizoaffective disorder who presented to the ER with complaint of suicidal and homicidal ideation as well as sleeping all the time. He has subsequently been admitted to the mental health unit. Patient seen and examined. He reports that he is having malodorous urine that is dark in nature. He is concern for an infection. He denies any burning with urination or unusual discharge. He denied any fever or chills. He has been having intermittent diarrhea without abdominal pain which he links to anxiety and eating. He has had inconsistent nutritional intake and sometimes doesn't eat for days at a time and then gorges himself. This is due to lack of food. He denies any recent cough, cold, fever, flu, nausea, vomiting, or unusual numbness or tingling, and weakness. He reports that he is to see Dr. Tipton but felt that he wasn't getting the help he needs and he no longer is seeing him. He reports that he has slept the last 36 hours. Review of Systems Pertinent positives and negatives as discussed in HPI, a complete review of systems was performed and all other systems are negative. Past Medical History Additional Past Medical History / Comment(s): Asthma History of Any Multi-Drug Resistant Organisms: None Reported Past Surgical History: No Surgical Hx Reported Past Psychological History: Bipolar, PTSD, Schizoaffective Disorder Smoking Status: Current every day smoker Past Alcohol Use History: Occasional Past Drug Use History: Cocaine, Marijuana Additional History: He lives alone and his [facility], according to nursing there is no utilities at the house, he reports that he drinks 1-2 times weekly but sometimes he binge drinks. He reports a history of IVDA but has not used anything in approximately 5 years. He continues to use cocaine and marijuana. - Past Family History Mother Additional Family Medical History / Comment(s): Bipolar disorder, leukemia Medications and Allergies Home Medications Medication Instructions Recorded Confirmed Type Albuterol Inhaler [Ventolin Hfa 2 puff INHALATION RT-Q6H PRN 11/25/17 07/11/18 History Inhaler] Allergies Allergy/AdvReac Type Severity Reaction Status Date / Time No Known Allergies Allergy Verified 07/11/18 17:59 Physical Exam Osteopathic Statement: *. No significant issues noted on an osteopathic structural exam other than those noted in the History and Physical/Consult. Vitals: Vital Signs Temp Pulse Pulse Resp BP BP Pulse Ox 07/11/18 17:47 98.1 F 55 L 20 139/72 07/11/18 16:55 66 14 07/11/18 16:45 63 14 07/11/18 13:10 97.8 F 68 16 127/87 97 Intake and Output 07/11/18 07/11/18 07/11/18 06:59 14:59 22:59 Other: Weight 95.254 kg 93.157 kg General: non toxic, no distress, appears at stated age, normal weight Derm: no unusual rashes/lesions no unusual ecchymoses, warm, dry Head: atraumatic, normocephalic, symmetric Eyes: EOMI, no lid lag, anicteric sclera, pupils equal round reactive to light ENT: Nose and ears atraumatic, no thrush, no pharyngeal erythema Neck: No thyromegaly, no cervical lymphadenopathy, trachea midline, supple Mouth: no lip lesion, mucus membranes moist, poor dentition Cardiovascular: S1S2 reg, no murmur, positive posterior tibial pulse bilateral, no edema, capillary refill less than 2 seconds Lungs: CTA bilateral, no rhonchi, no rales , no accessory muscle use Abdominal: soft, nontender to palpation, no guarding, no appreciable organomegaly, normal bowel sounds Ext: no gross muscle atrophy, muscle strength 5 out of 5 in all 4 extremities grossly, no contractures, Neuro: CN II-XI grossly intact, light touch intact all 4 extremities, finger to nose within normal limits, Psych: Alert, oriented, appropriate affect Results Labs: Abnormal Lab Results - Last 24 Hours (Table) 07/11/18 Range/Units 14:53 Urine Cocaine Screen Detected H (NotDetected) U Marijuana (THC) Screen Detected H (NotDetected) Thrombosis Risk Factor Assmnt - DVT/VTE Prophylaxis DVT/VTE Prophylaxis: Low risk, early ambulation encouraged - Choose All That Apply Any of the Below Risk Factors Present?: No Other Risk Factors: No Other congenital or acquired thrombophilia - If yes, enter type in comment: No Thrombosis Risk Factor Assessment Level: Very Low Risk Assessment and Plan Assessment: Asthma, without exacerbation - as needed bronchodilators Dark urine - check urinalysis to rule out infection, check chlamydia and gonorrhea - May be due to dehydration with lack of consistent oral intake Hx if IVDA - check acute hepatitis panel and HIV - if positive would recommend outpatient GI or ID evaluation Tobacco abuse - cessation - nicotine replacement Thank you for allowing us to participate in the care of this patient. We will follow peripherally. Do not hesitate to contact us with questions. Someone can be reached from the [facility] hospitalist group at all hours of the day at [phone].
[2018-07-11] MEDS: NICOTINE 21MG/24HR PATCH TRANSDERM SCH (20:54)
[2018-07-11] MEDS: ALBUTEROL INHALER 60 PUFF/8 GM INHALER INHALATION PRN (21:00)
[2018-07-11] MEDS: LORazepam 1 MG TAB PO PRN (22:06)
[2018-07-11 23:00] LABS: Appearance,Urine Clear (Clear); Bilirubin,Urine Negative (Negative); Blood,Urine Negative (Negative); Color,Urine Light Yellow; Glucose,Urine (UA) Negative (Negative); Ketones,Urine Negative (Negative); Leukocyte Esterase,Urine Negative (Negative); Nitrite,Urine Negative (Negative); PH, Urine 5.5 (5.0-8.0); Protein,Urine Negative (Negative); Specific Gravity,Urine 1.006 (1.001-1.035); Urobilinogen,Urine <2.0 mg/dL (<2.0)
[2018-07-12] MEDS: NICOTINE 21MG/24HR PATCH TRANSDERM SCH (08:16)
[2018-07-12 09:15] LABS: Basophils % (A) 1 %; Eosinophils # (A) 0.2 k/uL (0-0.7); Eosinophils % (A) 3 %; HCT 49.2 % (39.0-53.0); HGB 15.9 gm/dL (13.0-17.5); Lymphocytes # (A) 1.4 k/uL (1.0-4.8); Lymphocytes % (A) 17 %; MCH 30.9 pg (25.0-35.0); MCHC 32.3 g/dL (31.0-37.0); MCV 95.6 fL (80.0-100.0); Mean Platelet Volume 6.7; Monocytes # (A) 0.4 k/uL (0-1.0); Monocytes % (A) 5 %; Neutrophils % (A) 73 %; Platelet Count 249 k/uL (150-450); RBC 5.14 m/uL (4.30-5.90); RDW 13.4 % (11.5-15.5); WBC 8.2 k/uL (3.8-10.6)
[2018-07-12 09:27] LABS: ALT 42 U/L (21-72); AST 31 U/L (17-59); Albumin 4.7 g/dL (3.5-5.0); Alkaline Phosphatase 58 U/L (38-126); Anion Gap 10 mmol/L; Blood Urea Nitrogen 14 mg/dL (9-20); Calcium 10.3 mg/dL (8.4-10.2); Carbon Dioxide 30 mmol/L (22-30); Chloride 103 mmol/L (98-107); Cholesterol 188 mg/dL (<200); Glucose 94 mg/dL (74-99); HDL Cholesterol 52 mg/dL (40-60); LDL Cholesterol,Calculated 101 mg/dL (0-99); Potassium 4.6 mmol/L (3.5-5.1); Sodium 143 mmol/L (137-145); Triglycerides 175 mg/dL (<150)
[2018-07-12] MEDS: LORazepam 1 MG TAB PO PRN ×2 (10:29→20:29)
[2018-07-12] MEDS: ALBUTEROL INHALER 60 PUFF/8 GM INHALER INHALATION PRN (11:12)
--- NOTE | 2018-07-12 11:19 | P.HP ---
Psychiatric H&P - . H&P Date: 07/12/18 History & Physical: Allergies Allergy/AdvReac Type Severity Reaction Status Date / Time No Known Allergies Allergy Verified 07/11/18 17:59 Vital Signs Temp 97.6 F 07/12/18 06:18 Pulse 52 L 07/12/18 06:18 Resp 14 07/12/18 06:18 BP 124/63 07/12/18 06:18 Pulse Ox 97 07/11/18 13:10 Intake & Output 07/11/18 07/12/18 07/12/18 18:59 06:59 18:59 Weight 93.157 kg Laboratory Last Values WBC 8.2 k/uL (3.8-10.6) 07/12/18 08:38 RBC 5.14 m/uL (4.30-5.90) 07/12/18 08:38 Hgb 15.9 gm/dL (13.0-17.5) 07/12/18 08:38 Hct 49.2 % (39.0-53.0) 07/12/18 08:38 MCV 95.6 fL (80.0-100.0) 07/12/18 08:38 MCH 30.9 pg (25.0-35.0) 07/12/18 08:38 MCHC 32.3 g/dL (31.0-37.0) 07/12/18 08:38 RDW 13.4 % (11.5-15.5) 07/12/18 08:38 Plt Count 249 k/uL (150-450) 07/12/18 08:38 Neutrophils % 73 % 07/12/18 08:38 Lymphocytes % 17 % 07/12/18 08:38 Monocytes % 5 % 07/12/18 08:38 Eosinophils % 3 % 07/12/18 08:38 Basophils % 1 % 07/12/18 08:38 Neutrophils # 6.0 k/uL (1.3-7.7) 07/12/18 08:38 Lymphocytes # 1.4 k/uL (1.0-4.8) 07/12/18 08:38 Monocytes # 0.4 k/uL (0-1.0) 07/12/18 08:38 Eosinophils # 0.2 k/uL (0-0.7) 07/12/18 08:38 Basophils # 0.0 k/uL (0-0.2) 07/12/18 08:38 Sodium 143 mmol/L (137-145) 07/12/18 08:38 Potassium 4.6 mmol/L (3.5-5.1) 07/12/18 08:38 Chloride 103 mmol/L (98-107) 07/12/18 08:38 Carbon Dioxide 30 mmol/L (22-30) 07/12/18 08:38 Anion Gap 10 mmol/L 07/12/18 08:38 BUN 14 mg/dL (9-20) 07/12/18 08:38 Creatinine 0.89 mg/dL (0.66-1.25) 07/12/18 08:38 Est GFR (CKD-EPI)AfAm >90 (>60 ml/min/1.73 sqM) 07/12/18 08:38 Est GFR (CKD-EPI)NonAf >90 (>60 ml/min/1.73 sqM) 07/12/18 08:38 Glucose 94 mg/dL (74-99) 07/12/18 08:38 Calcium 10.3 mg/dL (8.4-10.2) H 07/12/18 08:38 Total Bilirubin 1.0 mg/dL (0.2-1.3) 07/12/18 08:38 AST 31 U/L (17-59) 07/12/18 08:38 ALT 42 U/L (21-72) 07/12/18 08:38 Alkaline Phosphatase 58 U/L (38-126) 07/12/18 08:38 Total Protein 8.0 g/dL (6.3-8.2) 07/12/18 08:38 Albumin 4.7 g/dL (3.5-5.0) 07/12/18 08:38 Triglycerides 175 mg/dL (<150) H 07/12/18 08:38 Cholesterol 188 mg/dL (<200) 07/12/18 08:38 LDL Cholesterol, Calc 101 mg/dL (0-99) H 07/12/18 08:38 HDL Cholesterol 52 mg/dL (40-60) 07/12/18 08:38 TSH 2.530 mIU/L (0.465-4.680) 07/12/18 08:38 Urine Color Light Yellow 07/11/18 Unknown Urine Appearance Clear (Clear) 07/11/18 Unknown Urine pH 5.5 (5.0-8.0) 07/11/18 Unknown Ur Specific [place] 1.006 (1.001-1.035) 07/11/18 Unknown Urine Protein Negative (Negative) 07/11/18 Unknown Urine Glucose (UA) Negative (Negative) 07/11/18 Unknown Urine Ketones Negative (Negative) 07/11/18 Unknown Urine Blood Negative (Negative) 07/11/18 Unknown Urine Nitrite Negative (Negative) 07/11/18 Unknown Urine Bilirubin Negative (Negative) 07/11/18 Unknown Urine Urobilinogen <2.0 mg/dL (<2.0) 07/11/18 Unknown Ur Leukocyte Esterase Negative (Negative) 07/11/18 Unknown Urine Opiates Screen Not Detected (NotDetected) 07/11/18 14:53 Ur Oxycodone Screen Not Detected (NotDetected) 07/11/18 14:53 Urine Methadone Screen Not Detected (NotDetected) 07/11/18 14:53 Ur Propoxyphene Screen Not Detected (NotDetected) 07/11/18 14:53 Ur Barbiturates Screen Not Detected (NotDetected) 07/11/18 14:53 U Tricyclic Antidepress Not Detected (NotDetected) 07/11/18 14:53 Ur Phencyclidine Scrn Not Detected (NotDetected) 07/11/18 14:53 Ur Amphetamines Screen Not Detected (NotDetected) 07/11/18 14:53 U Methamphetamines Scrn Not Detected (NotDetected) 07/11/18 14:53 U Benzodiazepines Scrn Not Detected (NotDetected) 07/11/18 14:53 Urine Cocaine Screen Detected (NotDetected) H 07/11/18 14:53 U Marijuana (THC) Screen Detected (NotDetected) H 07/11/18 14:53 Assessment and Plan Assessment: 32-year-old male presents emergency Department chief complaint of depression. Patient states that he is severely depressed states that he has no ambition no drive states that all he does is sleep all day. He does admit to alcohol and drug problem states he recently been smoking marijuana see the house. Patient states she's been several medications for depression but on no current meds now. Patient states that he has had some thoughts of harming self but he has not acted upon them. He states that he felt that he didn't overdose on drugs ordered and performed vehicle. He denies any homicidal ideation. Denies any chest pain or shortness of breath. He states he does not eat well and states he does not take care of herself. Past Medical History Additional Past Medical History / Comment(s): Asthma History of Any Multi-Drug Resistant Organisms: None Reported Past Surgical History: No Surgical Hx Reported Past Psychological History: Bipolar, PTSD, Schizoaffective Disorder Smoking Status: Current every day smoker Past Alcohol Use History: Occasional Past Drug Use History: Cocaine, Marijuana Additional History: He lives alone and his grandmother's house she is at [facility], according to nursing there is no utilities at the house, he reports that he drinks 1-2 times weekly but sometimes he binge drinks. He reports a history of IVDA but has not used anything in approximately 5 years. He continues to use cocaine and marijuana. - Past Family History Mother Additional Family Medical History / Comment(s): Bipolar disorder, leukemia Medications and Allergies Home Medications Medication Instructions Recorded Confirmed Type Albuterol Inhaler [Ventolin Hfa 2 puff INHALATION RT-Q6H PRN 11/25/17 07/11/18 History Inhaler] Allergies Allergy/AdvReac Type Severity Reaction Status Date / Time No Known Allergies Allergy Verified 07/11/18 17:59 Musculoskeletal Examination - Abnormal/Involuntary Movements: [none] Strength: [greater than antigravity (greater than/equal to 3/5) in all extremities Muscle Tone: [no impairment, Gait: [grossly normal Station: [grossly normal Mental Status Examination - this is a 32-year-old slim male who is hypervigilant on questioning. General Appearance: [well groomed casual, bizarre, appears stated age, Speech/Language: [spontaneous, expressive, soft] Attitude/Behavior: [cooperative Mood: [ depressed,, anxious, elated, irritable, angry, fearful, hopelessness] Affect: [ flat, incongruent, labile, blunted constricted] Orientation: [time, person, place situation] Thought Content: [wnl, Risk Factors: [He has suicidal (ideations, plan), and/or Homicidal (ideations, plan), other] Perception: [wnl Thought Processes: [ concrete, circumstantial, Concentration/Attention Span: [wnl] [Per observation and interview with the patient] Recent Memory: [wnl] 3 out of 3 in 3 minutes] Remote Memory: [wnl,] [past events, as related history] Intelligence average] [based on history, based on vocabulary, syntax, grammar, and content] Judgement: [ poor] [per patient's behavior/history of present illness] Insight: [ poor] [understanding severity of illness/history of present illness] Admitting Diagnosis: [Major depressive disorder with posttraumatic stress] Patient Strengths - Housing stability: [x] Able to vocalize needs: [x] Values and traditions: [x] Motivation, determination, readiness for change: [x] Setting and pursuing goals, hopes, dreams, aspirations: [x] Patient Limitations: [medication, non-compliance, pathological/unsupported environment Initial Plan of Care: [It appears that he has a mood and impulse difficulty thus major depressive disorder with impulsivity. He'll be admitted on a voluntary basis to the behavior health unit, be evaluated by psychiatry, medicine, nursing staff, social work, and recreational therapy. He will be on 15 minute checks for safety. He'll be integrated in [facility] therapeutic environment whereby he will participate in groups as well as medication management. I will start him on Effexor 37.5 mg XL, Lamictal 25 mg by mouth daily at bedtime, and clonidine for his posttraumatic stress 0.1 mg 3 times a day] Estimated Length of Stay: [7 days] Initial Discharge Plan: [home, [facility], referred to therapist Prognosis: [fair] Justification for Inpatient Hospitalization - [ agitation, anxiety, depression resulting in significant loss of functioning.] [Dangerous to self, others, or property with need for controlled environment.] [Emotional or behavioral conditions and complications requiring 24 hour medical and nursing care.] [Need for special drug therapy, or other therapeutic program requiring continuous hospitalization.] [Failure of social or occupational functioning.] [Inability to meet basic life and health needs.] (1) Depression Current Visit: Yes Status: Acute Code(s): F32.9 - MAJOR DEPRESSIVE DISORDER , SINGLE EPISODE, UNSPECIFIED SNOMED Code(s): 34351875 (2) Suicidal ideation Current Visit: Yes Status: Acute Code(s): R45.851 - SUICIDAL IDEATIONS SNOMED Code(s): 8296416 Time with Patient: Greater than 30
[2018-07-12] MEDS: cloNIDine HCL 0.1 MG TAB PO SCH ×2 (15:46→22:48)
[2018-07-12 18:14] LABS: Hemoglobin A1C 4.9 % (4.0-6.0)
[2018-07-12 18:46] LABS: Hepatitis A Antibody IgM Non-Reactive (Non-Reactive); Hepatitis B Core IgM Non-Reactive (Non-Reactive)
[2018-07-12] MEDS: VENLAFAXINE HCL ER 37.5 MG CAP PO SCH (20:27)
[2018-07-12] MEDS: lamoTRIgine 25 MG TAB PO SCH (20:27)
[2018-07-13] MEDS: NICOTINE 21MG/24HR PATCH TRANSDERM SCH (08:02)
[2018-07-13] MEDS: LORazepam 1 MG TAB PO PRN ×2 (08:04→16:21)
[2018-07-13] MEDS: cloNIDine HCL 0.1 MG TAB PO SCH ×3 (08:05→20:50)
[2018-07-13] MEDS: ALBUTEROL INHALER 60 PUFF/8 GM INHALER INHALATION PRN ×2 (09:07→21:26)
--- NOTE | 2018-07-13 10:46 | P.PN ---
Subjective Progress Note Date: 07/13/18 Principal diagnosis: Major depressive disorder with posttraumatic stress with cocaine withdrawal and amphetamine withdrawal I am tired all the time I can't stay awake okay I will go to your classes CLASSES BUT I'LL FOLLOW SLEEP Tense and irritable agitated and hyperomnulent Objective - Vital Signs Vital signs: Vital Signs Temp 97.9 F 07/12/18 21:22 Pulse 96 07/13/18 08:07 Resp 16 07/13/18 06:27 BP 128/80 07/13/18 08:07 Pulse Ox 97 07/11/18 13:10 - Labs CBC & Chem 7: 07/12/18 08:38 07/12/18 08:38 Labs: Abnormal Lab Results - Last 24 Hours (Table) 07/12/18 Range/Units 08:38 Hep C IgG Ab Reactive H (Non-Reactive) Assessment and Plan Assessment: 32-year-old male presents emergency Department chief complaint of depression. Patient states that he is severely depressed states that he has no ambition no drive states that all he does is sleep all day. He does admit to alcohol and drug problem states he recently been smoking marijuana see the house. Patient states she's been several medications for depression but on no current meds now. Patient states that he has had some thoughts of harming self but he has not acted upon them. He states that he felt that he didn't overdose on drugs ordered and performed vehicle. He denies any homicidal ideation. Denies any chest pain or shortness of breath. He states he does not eat well and states he does not take care of herself. Past Medical History Additional Past Medical History / Comment(s): Asthma History of Any Multi-Drug Resistant Organisms: None Reported Past Surgical History: No Surgical Hx Reported Past Psychological History: Bipolar, PTSD, Schizoaffective Disorder Smoking Status: Current every day smoker Past Alcohol Use History: Occasional Past Drug Use History: Cocaine, Marijuana Additional History: He lives alone and his grandmother's house she is at [facility], according to nursing there is no utilities at the house, he reports that he drinks 1-2 times weekly but sometimes he binge drinks. He reports a history of IVDA but has not used anything in approximately 5 years. He continues to use cocaine and marijuana. - Past Family History Mother Additional Family Medical History / Comment(s): Bipolar disorder, leukemia Medications and Allergies Home Medications Medication Instructions Recorded Confirmed Type Albuterol Inhaler [Ventolin Hfa 2 puff INHALATION RT-Q6H PRN 11/25/17 07/11/18 History Inhaler] Allergies Allergy/AdvReac Type Severity Reaction Status Date / Time No Known Allergies Allergy Verified 07/11/18 17:59 Musculoskeletal Examination - Abnormal/Involuntary Movements: [none] Strength: [greater than antigravity (greater than/equal to 3/5) in all extremities Muscle Tone: [no impairment, Gait: [grossly normal Station: [grossly normal Mental Status Examination - this is a 32-year-old slim male who is hypervigilant on questioning. General Appearance: [well groomed casual, bizarre, appears stated age, Speech/Language: [spontaneous, expressive, soft] Attitude/Behavior: [cooperative Mood: [ depressed,, anxious, elated, irritable, angry, fearful, hopelessness] Affect: [ flat, incongruent, labile, blunted constricted] Orientation: [time, person, place situation] Thought Content: [wnl, Risk Factors: [He has suicidal (ideations, plan), and/or Homicidal (ideations, plan), other] Perception: [wnl Thought Processes: [ concrete, circumstantial, Concentration/Attention Span: [wnl] [Per observation and interview with the patient] Recent Memory: [wnl] 3 out of 3 in 3 minutes] Remote Memory: [wnl,] [past events, as related history] Intelligence average] [based on history, based on vocabulary, syntax, grammar, and content] Judgement: [ poor] [per patient's behavior/history of present illness] Insight: [ poor] [understanding severity of illness/history of present illness] Admitting Diagnosis: [Major depressive disorder with posttraumatic stress] Patient Strengths - Housing stability: [x] Able to vocalize needs: [x] Values and traditions: [x] Motivation, determination, readiness for change: [x] Setting and pursuing goals, hopes, dreams, aspirations: [x] Patient Limitations: [medication, non-compliance, pathological/unsupported environment Initial Plan of Care: [It appears that he has a mood and impulse difficulty thus major depressive disorder with impulsivity. He'll be admitted on a voluntary basis to the behavior health unit, be evaluated by psychiatry, medicine, nursing staff, social work, and recreational therapy. He will be on 15 minute checks for safety. He'll be integrated in [facility] therapeutic environment whereby he will participate in groups as well as medication management. I will start him on Effexor 37.5 mg XL, Lamictal 25 mg by mouth daily at bedtime, and clonidine for his posttraumatic stress 0.1 mg 3 times a day] Estimated Length of Stay: [6 days] Initial Discharge Plan: [[place], [facility], referred to therapist Prognosis: [fair] Justification for Inpatient Hospitalization - [ agitation, anxiety, depression resulting in significant loss of functioning.] [Dangerous to self, others, or property with need for controlled environment.] [Emotional or behavioral conditions and complications requiring 24 hour medical and nursing care.] [Need for special drug therapy, or other therapeutic program requiring continuous hospitalization.] [Failure of social or occupational functioning.] [Inability to meet basic life and health needs.] (1) Depression Current Visit: Yes Status: Acute Priority: High Code(s): F32.9 - MAJOR DEPRESSIVE DISORDER, SINGLE EPISODE, UNSPECIFIED SNOMED Code(s): 77397515 (2) Suicidal ideation Current Visit: Yes Status: Acute Priority: High Code(s): R45.851 - SUICIDAL IDEATIONS SNOMED Code(s): 9672057 Plan: Will add Wellbutrin 150 mg SR in the morning for more activation, continue Effexor 37.5 mg at bedtime We'll continue the Catapres since he appears to be in withdrawal from cocaine and amphetamines Time with Patient: Less than 30
[2018-07-13 14:46] LABS: N. gonorrhoeae,PCR Negative (Neg,Equiv); Neisseria Source Urine
[2018-07-13 14:47] LABS: C. trachomatis,PCR Negative (Neg,Equiv); Chlamydia trachomatis Source Urine
[2018-07-13] MEDS: VENLAFAXINE HCL ER 37.5 MG CAP PO SCH (20:05)
[2018-07-13] MEDS: lamoTRIgine 25 MG TAB PO SCH (20:05)
[2018-07-13] MEDS ORDERED: buPROPion SR 150 MG TABLET.ER PO SCH (21:00)
[2018-07-14] MEDS: LORazepam 1 MG TAB PO PRN ×3 (00:54→20:27)
[2018-07-14] MEDS: NICOTINE 21MG/24HR PATCH TRANSDERM SCH ×2 (08:16→21:51)
[2018-07-14] MEDS: cloNIDine HCL 0.1 MG TAB PO SCH (08:18)
--- NOTE | 2018-07-14 11:37 | P.PN ---
Progress Note - Text Interval history: The patient is found in the hallway he follows me to an interview room. He reports his mood continues to be depressed. He states he needs long-term care and doesn't want to be rushed out of the hospital like so many times in the past. He states he presented with suicidal ideation. He reports he has bipolar disorder schizoaffective disorder. He reports he was diagnosed with those that age 16. He endorses auditory hallucinations that are good and bad and will sometimes direct self-harm. He reports that they are always there. He indicates having episodes of iván in the past. He has been using cocaine and his last use was on Saturday. He had cocaine and marijuana in his drug screen. He states he was scheduled to go to [facility] several months ago but just didn't follow through. Mental status exam: The patient is a tall male appearing his stated age. He is dressed in hospital gowns he has a disheveled appearance hygiene is adequate. Speech is fluent and spontaneous he is verbose but easily directed. He maintains a constricted affect. He describes a depressed mood with suicidal ideation but no homicidal ideation. He reports auditory and visual hallucinations. He states he chronically feels paranoid that people could be watching or following him. Insight and judgment limited. He demonstrates no verbal or physical aggressiveness he demonstrates no involuntary repetitive movements. Plan: The clonidine was discontinued due to hypotension. The Wellbutrin SR will be changed 250 mg in the morning. Continue Lamictal and Effexor XR for now. We will look to see if he has any ongoing symptoms of psychosis or if they are due to recent cocaine use. We will clarify if he has a bipolar disorder. We will monitor him for safety and encourage full participation in the milieu. He is encouraged to call for inpatient chemical dependency treatment again.
[2018-07-14] MEDS: buPROPion SR 150 MG TABLET.ER PO SCH (12:01)
[2018-07-14 13:51] LABS: HIV 1 AB Non-Reactive (Non-Reactive); HIV AB P24 Non-Reactive (Non-Reactive); HIV P24 AG Non-Reactive (Non-Reactive)
[2018-07-14] MEDS: ACETAMINOPHEN TAB 325 MG TAB PO PRN ×2 (14:40→18:20)
[2018-07-14] MEDS: ALBUTEROL INHALER 60 PUFF/8 GM INHALER INHALATION PRN ×2 (16:48→20:42)
[2018-07-14] MEDS: lamoTRIgine 25 MG TAB PO SCH (20:26)
[2018-07-14] MEDS: VENLAFAXINE HCL ER 37.5 MG CAP PO SCH (20:26)
[2018-07-14] MEDS ORDERED: WATER FOR INJECTION, STERILE 10 ML IV ONE (21:38)
[2018-07-14] MEDS: ZIPRASIDONE 20 MG VIAL IM PRN (21:38)
[2018-07-14] MEDS ORDERED: ZIPRASIDONE 20 MG VIAL IM ONE (21:38)
[2018-07-15 06:29] VITALS: RESP 16
[2018-07-15] MEDS: buPROPion SR 150 MG TABLET.ER PO SCH (08:15)
[2018-07-15] MEDS: NICOTINE 21MG/24HR PATCH TRANSDERM SCH (08:15)
[2018-07-15] MEDS: LORazepam 1 MG TAB PO PRN ×3 (08:17→20:09)
--- NOTE | 2018-07-15 10:06 | P.PN ---
Progress Note - Text Interval history: The patient's found in his room he prefers to not follow me to an interview room. He reports having thoughts yesterday that someone was trying to harm him. He states that he received an injection last evening due to these concerns and feeling agitated. He states he slept well throughout the night because of the medication. Appetite stable. He informs me that he signed a notice withdrawing his voluntary status. We discussed the implications of that decision. We reviewed his psychotropic medication. His questions were answered. Mental status exam: The patient is alert he is lying in bed. Eye contact is appropriate speech is fluent and spontaneous nonpressured. He describes having paranoid thoughts yesterday and feels staff were not taking him seriously. He reports feeling easily agitated at times. He is reporting no suicidal or homicidal thoughts. He is endorsing no hallucinations currently. He does not appear hypomanic or manic. Insight and judgment limited. He demonstrates no verbal or physical aggressiveness. He demonstrates no involuntary repetitive movements. Plan: The patient will continue on the Effexor XR. I will discontinue the Lamictal and the Wellbutrin. We decided we would initiate Latuda as a mood stabilizer and this may also assist as an antipsychotic. We will monitor him for safety and encourage his full participation in the milieu. Vital signs reviewed. He requires continued psychiatric hospitalization for further stabilization.
[2018-07-15] MEDS: LURASIDONE 40 MG TAB PO SCH (10:38)
[2018-07-15] MEDS: ACETAMINOPHEN TAB 325 MG TAB PO PRN (15:23)
[2018-07-15] MEDS: VENLAFAXINE HCL ER 37.5 MG CAP PO SCH (20:09)
[2018-07-16] MEDS: ZIPRASIDONE 20 MG VIAL IM PRN (00:15)
[2018-07-16 06:36] VITALS: BP 122/68; PULSE 52; TEMP 97.7
[2018-07-16] MEDS: LURASIDONE 40 MG TAB PO SCH (07:44)
[2018-07-16] MEDS: NICOTINE 21MG/24HR PATCH TRANSDERM SCH (07:44)
--- NOTE | 2018-07-16 10:53 | P.DS ---
Providers Date of admission: 07/11/18 16:52 Expected date of discharge: 07/16/18 Attending physician: Andrew Rust Consults: 07/11/18 17:35 Consult Physician Routine Consulting Provider: Jennifer Barajas Consult Reason/Comments: H & P and medical care Do you want consulting provider notified?: Yes Primary care physician: Stated None - Discharge Diagnosis(es) (1) Major depressive disorder, recurrent, severe with psychotic features Current Visit: Yes Status: Acute Priority: High (2) Alcohol use disorder Current Visit: Yes Status: Acute Priority: Medium (3) Cocaine use disorder Current Visit: Yes Status: Acute Priority: Medium (4) Cannabis use disorder, mild, abuse Current Visit: Yes Status: Acute Priority: Medium Hospital Course: Brief summary of admission note: This patient is a 32-year-old male who was admitted to the mental health unit through the emergency room for severe symptoms of depression and suicidal ideation. He indicated that he had no ambition he slept all day and was feeling very depressed. He had thoughts of overdosing with drugs. He does have a history of abusing several substances. He indicated experiencing some feelings of paranoia. He was initially evaluated by Dr. Mcwilliams please refer to his psychiatric evaluation for full detail. Summary of hospital course: The patient was admitted to the mental health unit he signed in voluntarily. He was initially evaluated by Dr. Mcwilliams. He was placed on Effexor XR Lamictal and Wellbutrin. I assumed care of the patient beginning Saturday. We reviewed his presenting symptoms and treatment options. We decided to continue the Effexor XR with a plan of titrating to 75 mg daily. The Lamictal and Wellbutrin were discontinued and Latuda 40 mg daily was started. The patient selectively attended groups. He was seen by internal medicine for routine history and physical exam. He has reported a resolution of any suicidal ideation and feels his mood is more hopeful. He has been demonstrating future oriented thinking in that he wants to be discharged and he needs to get the water turned back on at the house where he is residing. He is willing to allow social work to speak with his mother as he plans on spending Thanksgiving with her tomorrow. We discussed his use of substances he does not feel that he requires inpatient chemical dependency treatment at this time. We discussed the process of calling the access line to arrange it should he change his mind. He does not wish to have another medicine provided to address substance use. The patient is a tall thin male appearing his stated age. He is mildly disheveled hygiene is adequate. He reports his mood is better. He is reporting no hopelessness thinking he is reporting no suicidal ideation intent or plan. He reports no homicidal ideation intent or plan. He is endorsing no auditory or visual hallucinations at this time he is reporting no specific delusional thoughts. He seated calmly he demonstrates no verbal or physical aggressiveness he demonstrates no involuntary repetitive movements. He demonstrates future oriented thinking. Insight and judgment have improved since admission. Affect is appropriately expressive. He remains oriented to person place and date. Impressions 1. Major depressive disorder recurrent severe with psychosis, alcohol use disorder, cocaine use disorder, cannabis use disorder Plan: The patient will be discharged mental health unit today to return to his prior residence. Social work will arrange his outpatient mental health follow- up. He will continue on Effexor XR 75 mg daily Latuda 40 mg daily. He is instructed to abstain from any use of alcohol marijuana cocaine or any other illicit drug. Again he does not wish to participate in inpatient chemical dependency treatment at this time. We discussed that use of those substances will worsen his symptoms and elevate his safety risk. He is instructed to return to the hospital with any acute safety concerns. Patient Condition at Discharge: Stable Plan - Discharge Summary Discharge Rx Participant: No New Discharge Prescriptions: New Lurasidone [Latuda] 40 mg PO DAILY #30 tab Nicotine 21Mg/24Hr Patch [Habitrol] 1 patch TRANSDERM DAILY #10 patch Venlafaxine HCl ER [Effexor Xr] 75 mg PO DAILY #30 cap Continue Albuterol Inhaler [Ventolin Hfa Inhaler] 2 puff INHALATION RT-Q6H PRN PRN Reason: Shortness Of Breath Discharge Medication List Albuterol Inhaler [Ventolin Hfa Inhaler] 2 puff INHALATION RT-Q6H PRN 11/25/17 [ History] Lurasidone [Latuda] 40 mg PO DAILY #30 tab 07/16/18 [Rx] Nicotine 21Mg/24Hr Patch [Habitrol] 1 patch TRANSDERM DAILY #10 patch 07/16/18 [ Rx] Venlafaxine HCl ER [Effexor Xr] 75 mg PO DAILY #30 cap 07/16/18 [Rx] Follow up Appointment(s)/Referral(s): None,Stated [Primary Care Provider] - 1-2 days
== END 2018-07-16 11:55 | disposition home or self-care (01) | DRG 885 ==
LOC: EC 11:58 → 3MHU 16:52
PROVIDERS: ADMIT Psychiatry & Neurology Psychiatry; ATTEND Psychiatry & Neurology Psychiatry
DX: F33.3 Major depressive disorder, recurrent, severe with psychotic symptoms (principal); F10.19 Alcohol abuse with unspecified alcohol-induced disorder; F14.23 Cocaine dependence with withdrawal; F15.23 Other stimulant dependence with withdrawal; R45.851 Suicidal ideations; F12.19 Cannabis abuse with unspecified cannabis-induced disorder; F17.200 Nicotine dependence, unspecified, uncomplicated; F43.10 Post-traumatic stress disorder, unspecified; J45.909 Unspecified asthma, uncomplicated; R45.850 Homicidal ideations; Z80.6 Family history of leukemia; Z91.19 Patient's noncompliance with other medical treatment and regimen; Z79.899 Other long term (current) drug therapy
CPT/HCPCS: 80053; 80061; 80074; 80306; 81003; 82075; 83036; 84443; 85025; 87390; 87491; 87591; 94640; 99285

== ENCOUNTER 2018-07-24 09:56 | Inpatient (IN) | payer MEDICAID, OTHER ==
--- NOTE | 2018-07-24 11:13 | ED ---
Psych HPI - General Chief Complaint: Psychiatric Symptoms Stated Complaint: mental health Time Seen by Provider: 07/24/18 10:09 Source: patient, RN notes reviewed Mode of arrival: ambulatory Limitations: no limitations - History of Present Illness Initial Comments: 32-year-old male presents emergency Department with police for psychiatric evaluation. Patient was brought from [facility] secondary to his behavior and reportedly not taking his medications. Patient states he is taking his medications that he has been out of the [place] for 8 [place]. Patient states that he does smoke marijuana daily he denies any other drug use at this time. Patient states that he is upset and that's why he is so hyper. Patient denies any physical complaints. Denies any suicidal ideation. Denies any homicidal ideation. - Related Data Home Medications Medication Instructions Recorded Confirmed Albuterol Inhaler [Ventolin Hfa 2 puff INHALATION RT-Q6H PRN 11/25/17 07/24/18 Inhaler] Previous Rx's Medication Instructions Recorded Lurasidone [Latuda] 40 mg PO DAILY #30 tab 07/16/18 Nicotine 21Mg/24Hr Patch [Habitrol] 1 patch TRANSDERM DAILY #10 patch 07/16/18 Venlafaxine HCl ER [Effexor Xr] 75 mg PO DAILY #30 cap 07/16/18 Allergies Allergy/AdvReac Type Severity Reaction Status Date / Time No Known Allergies Allergy Verified 07/24/18 10:11 Review of Systems ROS Statement: Those systems with pertinent positive or pertinent negative responses have been documented in the HPI. ROS Other: All systems not noted in ROS Statement are negative. Past Medical History Past Medical History: No Reported History Additional Past Medical History / Comment(s): Asthma History of Any Multi-Drug Resistant Organisms: None Reported Past Surgical History: No Surgical Hx Reported Past Psychological History: Bipolar, PTSD, Schizoaffective Disorder Smoking Status: Current every day smoker Past Alcohol Use History: Occasional Past Drug Use History: Cocaine, Marijuana - Past Family History Mother Additional Family Medical History / Comment(s): Bipolar disorder, leukemia General Exam General appearance: alert, in no apparent distress Head exam: Present: atraumatic, normocephalic, normal inspection Eye exam: Present: normal appearance, PERRL, EOMI. Absent: scleral icterus, conjunctival injection, periorbital swelling ENT exam: Present: normal exam, normal oropharynx, mucous membranes moist, TM's normal bilaterally, normal external ear exam Neck exam: Present: normal inspection, full ROM. Absent: tenderness, meningismus, lymphadenopathy Respiratory exam: Present: normal lung sounds bilaterally. Absent: respiratory distress, wheezes, rales, rhonchi, stridor Cardiovascular Exam: Present: normal rhythm, tachycardia, normal heart sounds. Absent: systolic murmur, diastolic murmur, rubs, gallop, clicks GI/Abdominal exam: Present: soft, normal bowel sounds. Absent: distended, tenderness, guarding, rebound, rigid Neurological exam: Present: alert, oriented X3 Psychiatric exam: Present: agitated, anxious, manic Skin exam: Present: warm, dry, intact, normal color. Absent: rash Course Vital Signs 07/24/18 07/24/18 10:03 13:53 Temperature 97.3 F L 97.1 F L Pulse Rate 112 H 87 Respiratory 18 20 Rate Blood Pressure 131/70 O2 Sat by Pulse 100 97 Oximetry Medical Decision Making - Medical Decision Making Patient was it valuated by EPS and case discussed with psychiatrist. Patient will be admitted for psychiatric evaluation. Patient was positive for cocaine. - Lab Data Lab Results 07/24/18 Range/Units 12:36 Urine Opiates Screen Not Detected (NotDetected) Ur Oxycodone Screen Not Detected (NotDetected) Urine Methadone Screen Not Detected (NotDetected) Ur Propoxyphene Screen Not Detected (NotDetected) Ur Barbiturates Screen Not Detected (NotDetected) U Tricyclic Antidepress Not Detected (NotDetected) Ur Phencyclidine Scrn Not Detected (NotDetected) Ur Amphetamines Screen Not Detected (NotDetected) U Methamphetamines Scrn Not Detected (NotDetected) U Benzodiazepines Scrn Not Detected (NotDetected) Urine Cocaine Screen Detected H (NotDetected) U Marijuana (THC) Screen Detected H (NotDetected) Disposition Clinical Impression: Major depressive disorder, recurrent, severe with psychotic features, Cocaine use disorder, Cannabis use disorder, mild, abuse Disposition: ADMITTED IP TO THIS HOSP
[2018-07-24 13:20] LABS: Amphetamine Screen,Urine Not Detected (NotDetected); Barbiturate Screen,Urine Not Detected (NotDetected); Benzodiazepines Screen,Urine Not Detected (NotDetected); Cocaine Screen,Urine Detected (NotDetected); Methadone Screen, Urine Not Detected (NotDetected); Opiate Screen,Urine Not Detected (NotDetected); Oxycodone Screen, Urine Not Detected (NotDetected); Phencyclidine Screen,Urine Not Detected (NotDetected); Tricyclic Antidepressant,Urine Not Detected (NotDetected); Urn Cannabinoid Scrn Detected (NotDetected)
[2018-07-24] MEDS ORDERED: MAG HYDROX/AL HYDROX/SIMETH 30 ML CUP PO PRN (14:27)
[2018-07-24] MEDS ORDERED: MAGNESIUM HYDROXIDE 2,400 MG/10 ML CUP PO PRN (14:27)
[2018-07-24] MEDS ORDERED: ACETAMINOPHEN TAB 325 MG TAB PO PRN (14:27)
[2018-07-24] MEDS: VENLAFAXINE HCL ER 75 MG CAP PO SCH (16:05)
[2018-07-24] MEDS: NICOTINE 21MG/24HR PATCH TRANSDERM SCH (16:05)
--- NOTE | 2018-07-24 16:32 | P.PN ---
Progress Note - Text Progress Note Date: 07/24/18 Attempted to do HPI. However the patient is still quite agitated aggressive, noncooperative, loud and refusing to be seen by medicine. Patient had made allegations that we are keeping him against his will, and I stated that since I have no bearing on how long he stays in the psychiatric unit that he will not see me.
[2018-07-25] MEDS: lamoTRIgine 25 MG TAB PO SCH ×4 (00:08→20:52)
[2018-07-25] MEDS: PALIPERIDONE 3 MG TAB.ER.24 PO SCH ×4 (00:08→20:52)
[2018-07-25] MEDS: ALBUTEROL INHALER 60 PUFF/8 GM INHALER INHALATION PRN ×4 (00:09→18:53)
[2018-07-25] MEDS: LORazepam 1 MG TAB PO PRN ×2 (00:23→20:54)
[2018-07-25] MEDS: VENLAFAXINE HCL ER 75 MG CAP PO SCH (08:20)
[2018-07-25] MEDS: NICOTINE 21MG/24HR PATCH TRANSDERM SCH ×2 (08:20→18:33)
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
[2018-07-26] MEDS: ALBUTEROL INHALER 60 PUFF/8 GM INHALER INHALATION PRN ×4 (07:13→22:28)
[2018-07-26] MEDS: NICOTINE 21MG/24HR PATCH TRANSDERM SCH (08:40)
[2018-07-26] MEDS: LORazepam 1 MG TAB PO PRN ×2 (08:42→17:47)
--- NOTE | 2018-07-26 15:52 | P.HPIM ---
History of Present Illness H&P Date: 07/26/18 The patient is a 32 yo M with a PMH of bipolar disorder, schizoaffective disorder, and asthma was brought in to the ED under police custody for nelai and unpredictable behavior. The patient had noted that he wasn't taking his medications. He was seen in the [facility] today. He notes that he is feeling better now and has no suicidal or homicidal ideation and isn't as hyper since people aren't making him upset any more. He admitted to using cocaine on Saturday and Sunday 07/22-07/23 prior to admission after finding out that his mother was diagnosed with leukemia. He endorsed using an albuterol inhaler 3-4 times daily. He also endorsed a L chest wall pain w/ deep breaths and with tenderness to palpation butt denied any other active complaints including SOB, nausea, vomiting, diarrhea, or dizziness. He notes his ET is unlimited. Review of Systems Pertinent positives and negatives as discussed in HPI, a complete review of systems was performed and all other systems are negative. Past Medical History Past Medical History: No Reported History Additional Past Medical History / Comment(s): Asthma History of Any Multi-Drug Resistant Organisms: None Reported Past Surgical History: No Surgical Hx Reported Past Psychological History: Bipolar, PTSD, Schizoaffective Disorder Smoking Status: Current every day smoker Past Alcohol Use History: Occasional Past Drug Use History: Cocaine, Marijuana - Past Family History Mother Additional Family Medical History / Comment(s): Bipolar disorder, leukemia Medications and Allergies Home Medications Medication Instructions Recorded Confirmed Type Albuterol Inhaler [Ventolin Hfa 2 puff INHALATION RT-Q6H PRN 11/25/17 07/24/18 History Inhaler] Lurasidone [Latuda] 40 mg PO DAILY #30 tab 07/16/18 07/24/18 Rx Nicotine 21Mg/24Hr Patch [Habitrol] 1 patch TRANSDERM DAILY #10 patch 07/16/18 07/24/18 Rx Venlafaxine HCl ER [Effexor Xr] 75 mg PO DAILY #30 cap 07/16/18 07/24/18 Rx Allergies Allergy/AdvReac Type Severity Reaction Status Date / Time No Known Allergies Allergy Verified 07/24/18 10:11 Physical Exam Vitals: Vital Signs Temp Pulse Resp BP 07/26/18 08:43 82 18 134/72 07/26/18 06:27 98.1 F 52 L 16 124/57 General: [non toxic], [no distress], [appears at stated age], [normal weight] Derm: [no unusual rashes/lesions] [no unusual ecchymoses], [warm], [dry] Head: [atraumatic], [normocephalic], [symmetric] Eyes: [EOMI], [no lid lag], [anicteric sclera], [pupils equal round reactive to light] ENT: [Nose and ears atraumatic], [no thrush], [no pharyngeal erythema] Neck: [No thyromegaly], [no cervical lymphadenopathy], [trachea midline], [ supple] Mouth: [no lip lesion], [mucus membranes moist] Cardiovascular: [S1S2 reg], [no murmur], [positive posterior tibial pulse bilateral], [no edema], [capillary refill less than 2 seconds] Lungs: [CTA bilateral], [no rhonchi, no rales] , [no accessory muscle use] Abdominal: [soft], [ nontender to palpation], [no guarding], [no appreciable organomegaly], [normal bowel sounds] Ext: [no gross muscle atrophy], [muscle strength 5 out of 5 in all 4 extremities grossly], [no contractures], Neuro: [ CN II-XI grossly intact], [light touch intact all 4 extremities], [ finger to nose within normal limits], Psych: [Alert], [oriented], [appropriate affect] Assessment and Plan Plan: Mild persistent asthma -Will start Pulmicort bid with Albuterol prn L chest pain, likely musculoskeletal in nature -Monitor for now. Will obtain EKG in setting of cocaine abuse Nelia w/ hx of bipolar disorder and schiaffective -As per psychiatry Thank you for allowing us to participate in the care of this patient. We will follow peripherally. Do not hesitate to contact us with questions. Someone can be reached from the [facility] hospitalist group at all hours of the day at [phone].
[2018-07-26] MEDS: PALIPERIDONE 3 MG TAB.ER.24 PO SCH (20:34)
[2018-07-26] MEDS: lamoTRIgine 25 MG TAB PO SCH (20:34)
--- NOTE | 2018-07-26 20:39 | P.PN ---
Progress Note - Text Progress Note Date: 07/26/18 IDENTIFICATION DATA: 32-year-old male who was discharged from this mental health unit on was readmitted with a petition and clinical certificate completed by [facility] mental health staff due to being delusional with erratic behavior. History of cocaine and marijuana use. INTERVAL HISTORY: Patient reports feeling agitated being in the hospital as opposed being outside working and paying his bills. He asks if he could get ensure stating he is underweight. He reports for his height he should be 200 pounds but he is only 184pounds. He denies most of the symptoms. He reports good sleep and appetite. He denies current suicidal or homicidal ideations. He states he likes his current medications as they make him too drowsy. MENTAL STATUS EXAMINATION: Appeared stated age. He is tall, thin, dressed IN HOSPITAL GOWN. . Fair grooming and hygiene. No abnormal movements noted. mood is reported as pissed being in the hospital affect appropriate. speech and thought process linear and goal directed. denies current hallucinatios. Denies paranoia. is alert and oriented x 4. denies current suicidal or homicidal ideations. insight and judgement are improving. ASSESSMENT AND PLAN: Continue current treatment Monitor symptoms
[2018-07-26] MEDS: ZIPRASIDONE 20 MG VIAL IM PRN (23:30)
[2018-07-27] MEDS: NICOTINE 21MG/24HR PATCH TRANSDERM SCH (07:48)
[2018-07-27] MEDS: ALBUTEROL INHALER 60 PUFF/8 GM INHALER INHALATION PRN ×3 (09:29→17:47)
[2018-07-27] MEDS: BUDESONIDE 0.25 MG/2 ML NEBU INHALATION SCH ×2 (09:31→22:15)
--- NOTE | 2018-07-27 17:31 | P.PN ---
Progress Note - Text Progress Note Date: 07/27/18 IDENTIFICATION DATA: 32-year-old male who was discharged from this mental health unit on was readmitted with a petition and clinical certificate completed by [facility] mental health staff due to being delusional with erratic behavior. History of cocaine and marijuana use. INTERVAL HISTORY: Patient says he is little paranoid but says being in the hospital he feels safe. He says he has done bad things in the past and is paranoid that karma will get him as it is the [employer] [place]. He also reports feeling bored, tired and frustrated being in the hospital instead of working outside. He denies current symptoms of depression. He asked for ensure stating he is underweight. He says even with ativan he hasnt been able to sleep well at night. He says every time he gets geodon injection he sleeps through the day. He is currently asking for remeron for sleeping claiming that he had taken that before. MENTAL STATUS EXAMINATION: Appeared stated age. He is tall, thin, dressed appropriately. . Fair grooming and hygiene. No abnormal movements noted. mood is reported as good affect appropriate. speech and thought process linear and goal directed. denies current hallucinatios. reports paranoia. is alert and oriented x 4. denies current suicidal or homicidal ideations. insight and judgement are improving. ASSESSMENT AND PLAN: Will start him on remeron 7.5mg po qhs for insomnia. Continue current treatment Monitor symptoms
[2018-07-27] MEDS: LORazepam 1 MG TAB PO PRN (17:40)
[2018-07-27] MEDS: lamoTRIgine 25 MG TAB PO SCH (20:30)
[2018-07-27] MEDS: PALIPERIDONE 3 MG TAB.ER.24 PO SCH (20:31)
[2018-07-27] MEDS ORDERED: MIRTAZAPINE 15 MG TAB PO SCH (21:00)
[2018-07-28] MEDS: LORazepam 1 MG TAB PO PRN ×3 (02:08→23:55)
[2018-07-28 02:15] VITALS: RESP 16
[2018-07-28] MEDS: ALBUTEROL INHALER 60 PUFF/8 GM INHALER INHALATION PRN (07:36)
[2018-07-28] MEDS: BUDESONIDE 0.25 MG/2 ML NEBU INHALATION SCH ×2 (07:39→20:06)
[2018-07-28] MEDS: NICOTINE 21MG/24HR PATCH TRANSDERM SCH ×2 (09:22→19:56)
--- NOTE | 2018-07-28 11:30 | P.PN ---
Progress Note - Text Interval history: The patient presents to my office to speak. He indicates being frustrated with staff here as he feels they are giving him conflictual directions. He reports that he didn't sleep well last night however he is been sleeping throughout the day. We discussed having him participate more in groups during the day but he is resistant. We reviewed his psychotropic medication. He is upset that the Remeron was started only at 7.5 mg. We discussed why and his questions were answered. He has made bizarre statements per staff. As an example in one group this weekend he indicated he hoped he had a asthma attack and . Mental status exam: The patient is alert he is a disheveled appearance. Eye contact is intermittent. He appears irritable. He speaks the entire time during our interaction. He states we are keeping him from living his life getting a job and paying his bills. He states that the psychiatrist in the outpatient venue have too much power over him. He does not understand the reason for the admission demonstrating poor insight and judgment. As he talks he indicated nothing is going to get better and that he will live here his whole life. He eventually gets up and leaves the office yelling down the hallway as he leaves. Due to the session being terminated early I was unable to inquire regarding suicidal or homicidal thoughts. There may be a delusional thought content based on some of the statements he is making. He demonstrated no aggressiveness towards me. He demonstrates no repetitive involuntary movements. Plan: The patient will continue on the invega we will titrate the dose to 6 mg at bedtime I will increase the Remeron to 15 mg at bedtime. He does have a deferral conference scheduled for this afternoon we will await the outcome. His mood is not stabilized at this time I suspect he is experiencing delusional thought. Vital signs reviewed.
[2018-07-28] MEDS: ZIPRASIDONE 20 MG VIAL IM PRN (11:40)
[2018-07-28] MEDS: MIRTAZAPINE 15 MG TAB PO SCH (19:56)
[2018-07-28] MEDS: PALIPERIDONE 6 MG TAB.ER.24 PO SCH (19:56)
[2018-07-28] MEDS: lamoTRIgine 25 MG TAB PO SCH (19:56)
[2018-07-29] MEDS ORDERED: diphenhydrAMINE 25 MG CAP PO STA (01:44)
[2018-07-29 05:42] VITALS: TEMP 97.2
[2018-07-29] MEDS: NICOTINE 21MG/24HR PATCH TRANSDERM SCH (08:29)
--- NOTE | 2018-07-29 10:20 | P.PN ---
Progress Note - Text Interval history: The patient is found in the front office associate he follows me to an interview room. He reports that he was upset after our session yesterday and he required a Geodon injection for agitated behavior. He states that he is hoping to control his behavior better moving forward. We discussed that it is her job to evaluate him and treat him until he is clinically stable to be discharged. He again discussed his frustrations that he is not able to attend to responsibilities related to his home. He did undergo a deferral conference yesterday he had questions regarding that and those questions were addressed. He states he had some difficulty sleeping last night but still got up earlier this morning she breakfast. He is encouraged to stay up today and attend groups. We reviewed his psychotropic medication. He is compliant with the invega. We discussed the possibility of using Invega Sustenna and he will give that consideration. Mental status exam: The patient is alert he is dressed in his own clothing. Hygiene is adequate he has a disheveled appearance. Eye contact is appropriate speech is fluent spontaneous nonpressured. He is much calmer today and easier to direct. He is reporting no suicidal or homicidal thoughts. He does still feel frustrated but feels more in control of his anger and irritability. He reports no auditory or visual hallucinations. He reports feeling safe in the hospital he is endorsing no current paranoid or persecutory thoughts. He may be underreporting symptoms however to facilitate a discharge. Insight and judgment limited. He demonstrates no verbal or physical aggressiveness he demonstrates no involuntary repetitive movements. Affect is constricted. Plan: The patient will continue on the current psychotropic medication, invega 6 mg at bedtime. I will discontinue the Lamictal 25 mg at bedtime as it seems unnecessary. We will likely initiate the Invega Sustenna injection this week. Vital signs reviewed. He is encouraged to participate more fully in the therapeutic milieu.
[2018-07-29] MEDS: ALBUTEROL INHALER 60 PUFF/8 GM INHALER INHALATION PRN ×3 (10:33→21:50)
[2018-07-29] MEDS: BUDESONIDE 0.25 MG/2 ML NEBU INHALATION SCH ×2 (10:34→21:50)
[2018-07-29] MEDS: PALIPERIDONE 6 MG TAB.ER.24 PO SCH (20:08)
[2018-07-29] MEDS: LORazepam 1 MG TAB PO PRN (20:10)
[2018-07-29] MEDS: MIRTAZAPINE 15 MG TAB PO SCH (22:43)
[2018-07-30] MEDS: ALBUTEROL INHALER 60 PUFF/8 GM INHALER INHALATION PRN ×2 (08:33→19:02)
[2018-07-30] MEDS: NICOTINE 21MG/24HR PATCH TRANSDERM SCH (08:34)
[2018-07-30] MEDS: BUDESONIDE 0.25 MG/2 ML NEBU INHALATION SCH ×2 (08:35→19:07)
[2018-07-30] MEDS ORDERED: PALIPERIDONE IM 234 MG/1.5 ML SYG IM ONE (10:25)
--- NOTE | 2018-07-30 10:29 | P.PN ---
Progress Note - Text Interval history: The patient is found in his room he follows me to an interview room. He indicates his mood is improving but he finds himself bothered with a peer that has been intrusive. He states he feels he is being tested by God but fortunately has not reacted aggressively. He states that he did not require a Geodon injection last evening. He feels the Remeron is helpful for sleep. We again discussed using Invega Sustenna and he is comfortable with us initiating that today. Mental status exam: The patient is a male appearing his stated age. Hygiene is adequate he appears disheveled. He is dressed in his own clothing. Speech is fluent spontaneous nonpressured. He is verbose. He reports no suicidal or homicidal ideation intent or plan. He reports no auditory or visual hallucinations or any specific delusions. He does not appear hypomanic or manic. Affect was calm. He does not appear irritable or aggressive. Insight and judgment improving. He demonstrates no verbal or physical aggressiveness he demonstrates no repetitive involuntary movements. He remains oriented to person place and date. Plan: The patient does appear to be clinically stabilizing. We will initiate the Invega Sustenna 234 mg injection today. He will continue on his other psychotropics as ordered. We will discuss his progress during treatment team meeting. I do anticipate he may be appropriate for discharge in the next 1-2 days, we will reassess tomorrow. Vital signs reviewed.
[2018-07-30 13:36] VITALS: BMI 24.4
[2018-07-30] MEDS: PALIPERIDONE 6 MG TAB.ER.24 PO SCH (20:26)
[2018-07-30] MEDS: MIRTAZAPINE 15 MG TAB PO SCH (22:49)
[2018-07-31] MEDS: LORazepam 1 MG TAB PO PRN (00:41)
[2018-07-31 00:43] VITALS: BP 164/82; PULSE 94
[2018-07-31] MEDS: NICOTINE 21MG/24HR PATCH TRANSDERM SCH (07:56)
[2018-07-31] MEDS: BUDESONIDE 0.25 MG/2 ML NEBU INHALATION SCH (10:11)
--- NOTE | 2018-07-31 10:19 | P.DS ---
Providers Date of admission: 07/24/18 14:00 Expected date of discharge: 07/31/18 Attending physician: Andrew Rust Consults: 07/24/18 14:27 Consult Physician Routine Consulting Provider: Jennifer Barajas Consult Reason/Comments: H & P and medical care Do you want consulting provider notified?: Yes Primary care physician: Stated None - Discharge Diagnosis(es) (1) Psychosis Current Visit: Yes Status: Acute Priority: High (2) Major depression Current Visit: Yes Status: Acute Priority: Medium (3) Cocaine use disorder Current Visit: Yes Status: Acute Priority: Medium (4) Cannabis use disorder, mild, abuse Current Visit: Yes Status: Acute Priority: Medium Hospital Course: Brief summary of admission note: This patient is a 32-year-old male who was admitted to the mental health unit through the emergency room for acute symptoms of psychosis. The patient was petitioned by clinicians at [facility]. He was described as being psychotic possibly intoxicated with erratic behavior. He had presented agitated paranoid. The patient was recently on this mental health unit 07/16/2018. For full details please refer to my psychiatric evaluation dated 07/25/2018. Summary of hospital course: The patient was admitted to the mental health unit he presented as an involuntary admission and a second clinical certificate was completed. During the course of his stay he met with the court appointed real estate associate attorney for a deferral conference and he decided to defer a court hearing. We reviewed his psychotropic medication and decided to discontinue the Latuda and the antidepressant he was started on an invega and the dose was titrated to 6 mg daily. The patient did have cocaine and marijuana in his urine drug screen which may have contributed to his presenting symptoms of psychosis. He demonstrated a progressive improvement of symptoms while here. He did require injections of Geodon to calm his behavior at times but he no longer requires those for behavioral control. He has been attending groups and participating. We discussed the potential benefits of the invega and he was amenable to having us initiate Invega Sustenna 234 mg IM yesterday. The weekend covering physician started him on Remeron this past weekend. He states he does not require this at home. He was seen by internal medicine for routine history and physical exam. He was seen by social work for a psychosocial assessment and for discharge planning. The patient does not wish to participate in inpatient chemical dependency treatment. Mental status exam: The patient is alert he presents with adequate hygiene improved grooming. Eye contact is appropriate speech is fluent spontaneous nonpressured. He is much more cooperative he is easily directed area he describes no hopelessness thinking no suicidal ideation intent or plan. He reports no homicidal ideation intent or plan. He describes no auditory or visual hallucinations or any specific delusions. There is no observed evidence of psychosis at this time. He demonstrates no tangential thinking loose associations or flight of ideas. He does not appear hypomanic or manic currently. Affect is appropriately expressive. He demonstrates no verbal or physical aggressiveness. He demonstrates no involuntary repetitive movements. He is oriented to person place and date. Impressions 1. Psychosis unspecified, rule out cocaine-induced psychosis, history of major depressive disorder, cannabis use disorder, rule out history of PTSD Plan: The patient will be discharged mental health unit today to return to his own residence. He will continue following up with [facility] and he is on a deferral agreement for treatment. He will continue on invega 6 mg daily for 14 days. He has received the invega 234 mg injection yesterday. He will be due for the 156 mg injection on 08/07/2018. He does not feel that the Remeron is necessary home we will discontinue that medication. He does not wish to participate in inpatient chemical dependency treatment regarding his cocaine and marijuana use. We discussed that he needs to abstain from those substances as they will likely precipitate symptoms of psychosis and also elevate his safety risk. At this time there is no imminent safety risk is appropriate for transition back to outpatient care. He is instructed to return to the hospital with any acute safety concerns. Patient Condition at Discharge: Stable Plan - Discharge Summary New Discharge Prescriptions: New Nicotine 21Mg/24Hr Patch [Habitrol] 1 patch TRANSDERM DAILY #10 patch Paliperidone [Invega] 6 mg PO HS #14 tab.er.24 Paliperidone IM [Invega Sustenna] 156 mg IM ONCE #1 syr Continue Albuterol Inhaler [Ventolin Hfa Inhaler] 2 puff INHALATION RT-Q6H PRN PRN Reason: Shortness Of Breath Discontinued Lurasidone [Latuda] 40 mg PO DAILY #30 tab Nicotine 21Mg/24Hr Patch [Habitrol] 1 patch TRANSDERM DAILY #10 patch Venlafaxine HCl ER [Effexor Xr] 75 mg PO DAILY #30 cap Discharge Medication List Albuterol Inhaler [Ventolin Hfa Inhaler] 2 puff INHALATION RT-Q6H PRN 11/25/17 [ History] Nicotine 21Mg/24Hr Patch [Habitrol] 1 patch TRANSDERM DAILY #10 patch 07/31/18 [ Rx] Paliperidone IM [Invega Sustenna] 156 mg IM ONCE #1 syr 07/31/18 [Rx] Paliperidone [Invega] 6 mg PO HS #14 tab.er.24 07/31/18 [Rx] Follow up Appointment(s)/Referral(s): [facility] [Outside] - 08/05/18 10:00 am (08-05-18 @ 10:00 with Joseph Souza 08-05-18 @ 12:00 with ERNESTO Torres ) Javy Tipton MD [REFERRING] - As Needed Patient Instructions/Handouts: Depression (GEN), Suicide Prevention (GEN) Activity/Diet/Wound Care/Special Instructions: Activity and diet as tolerated. Avoid the use of street drugs and alcohol. Take all medications as prescribed. When you are in need of refills on your medications please contact your medical provider and/or outpatient psychiatrist to have this done. Please go to scheduled outpatient appointment for aftercare treatment. If symptoms return or become worse call the crisis line at [phone] and/or go to the nearest emergency room for an evaluation.
== END 2018-07-31 11:30 | disposition home or self-care (01) | DRG 885 ==
LOC: EC 09:56 → 3MHU 14:00
PROVIDERS: ADMIT Psychiatry & Neurology Psychiatry; ATTEND Psychiatry & Neurology Psychiatry
DX: F33.3 Major depressive disorder, recurrent, severe with psychotic symptoms (principal); F17.200 Nicotine dependence, unspecified, uncomplicated; J45.30 Mild persistent asthma, uncomplicated; Z80.6 Family history of leukemia; Z91.410 Personal history of adult physical and sexual abuse; Z81.8 Family history of other mental and behavioral disorders
CPT/HCPCS: 80306; 82075; 93005; 94640; 99285

== ENCOUNTER 2018-08-09 13:02 | Inpatient (IN) | payer MEDICAID, OTHER ==
--- NOTE | 2018-08-09 13:59 | ED ---
Psych HPI - General Chief Complaint: Psychiatric Symptoms Stated Complaint: pickup order Time Seen by Provider: 08/09/18 13:30 Source: patient, RN notes reviewed Mode of arrival: ambulatory - History of Present Illness Initial Comments: This is a 32-year-old male history of bipolar disorder and schizophrenia who was brought here on a pickup order for not following up with [facility]. Patient does state he has a job and could not make his appointments due to his job. He denies a suicidal Thoughts or Ideation. No Drugs or Alcohol Reported. No Other Complaints at This Time MD Complaint: other - Related Data Home Medications Medication Instructions Recorded Confirmed Albuterol Inhaler [Ventolin Hfa 2 puff INHALATION RT-Q6H PRN 11/25/17 08/09/18 Inhaler] Previous Rx's Medication Instructions Recorded Nicotine 21Mg/24Hr Patch [Habitrol] 1 patch TRANSDERM DAILY #10 patch 08/15/18 Paliperidone IM [Invega Sustenna] 117 mg IM ONCE #1 syr 08/15/18 Allergies Allergy/AdvReac Type Severity Reaction Status Date / Time No Known Allergies Allergy Verified 08/09/18 13:57 Review of Systems ROS Statement: Those systems with pertinent positive or pertinent negative responses have been documented in the HPI. ROS Other: All systems not noted in ROS Statement are negative. Past Medical History Past Medical History: No Reported History Additional Past Medical History / Comment(s): Asthma History of Any Multi-Drug Resistant Organisms: None Reported Past Surgical History: No Surgical Hx Reported Past Psychological History: Bipolar, PTSD, Schizoaffective Disorder Smoking Status: Current every day smoker Past Alcohol Use History: Occasional Past Drug Use History: Cocaine, Marijuana - Past Family History Mother Additional Family Medical History / Comment(s): Bipolar disorder, leukemia General Exam - General Exam Comments Initial Comments: Is a well-developed well-nourished awake alert oriented 3 male the patient does demonstrate disorganized thought pattern as well as tangential thought pattern. Limitations: no limitations General appearance: alert, anxious Head exam: Present: atraumatic, normocephalic, normal inspection Eye exam: Present: normal appearance, PERRL, EOMI. Absent: scleral icterus, conjunctival injection, periorbital swelling ENT exam: Present: normal exam, mucous membranes moist Neck exam: Present: normal inspection. Absent: tenderness, meningismus, lymphadenopathy Respiratory exam: Present: normal lung sounds bilaterally. Absent: respiratory distress, wheezes, rales, rhonchi, stridor Cardiovascular Exam: Present: regular rate, normal rhythm, normal heart sounds. Absent: systolic murmur, diastolic murmur, rubs, gallop, clicks GI/Abdominal exam: Present: soft, normal bowel sounds. Absent: distended, tenderness, guarding, rebound, rigid Extremities exam: Present: normal inspection, full ROM, normal capillary refill. Absent: tenderness, pedal edema, joint swelling, calf tenderness Back exam: Present: normal inspection Neurological exam: Present: alert, oriented X3, CN II-XII intact Psychiatric exam: Present: anxious Skin exam: Present: warm, dry, intact, normal color. Absent: rash Course Vital Signs 08/09/18 08/09/18 08/09/18 13:17 13:51 19:18 Temperature 97.7 F Pulse Rate 139 H 102 H 100 Respiratory 20 18 26 H Rate Blood Pressure 168/127 137/93 O2 Sat by Pulse 96 98 99 Oximetry 08/09/18 08/09/18 08/09/18 19:53 20:04 23:00 Temperature Pulse Rate 100 100 60 Respiratory 16 Rate Blood Pressure 124/58 O2 Sat by Pulse 100 Oximetry 08/10/18 08/10/18 08/11/18 08:08 18:54 06:10 Temperature 97.4 F L 97.5 F L Pulse Rate 82 60 84 Respiratory 18 18 18 Rate Blood Pressure 113/69 119/88 116/78 O2 Sat by Pulse 98 99 97 Oximetry 08/11/18 12:36 Temperature 97.5 F L Pulse Rate 76 Respiratory 14 Rate Blood Pressure 124/60 O2 Sat by Pulse 98 Oximetry - Reevaluation(s) Reevaluation #1: 08/09/18 17:00 I did fill out a clinical certification on the patient. Medical Decision Making - Medical Decision Making Patient was ultimately admitted for inpatient treatment - Lab Data Result diagrams: 08/09/18 15:00 08/09/18 15:00 Lab Results 08/09/18 08/09/18 08/09/18 Range/Units 15:00 15:00 15:00 WBC 6.8 (3.8-10.6) k/uL RBC 4.83 (4.30-5.90) m/uL Hgb 14.4 (13.0-17.5) gm/dL Hct 44.6 (39.0-53.0) % MCV 92.4 (80.0-100.0) fL MCH 29.8 (25.0-35.0) pg MCHC 32.3 (31.0-37.0) g/dL RDW 13.4 (11.5-15.5) % Plt Count 272 (150-450) k/uL Neutrophils % 75 % Lymphocytes % 17 % Monocytes % 5 % Eosinophils % 1 % Basophils % 0 % Neutrophils # 5.1 (1.3-7.7) k/uL Lymphocytes # 1.2 (1.0-4.8) k/uL Monocytes # 0.3 (0-1.0) k/uL Eosinophils # 0.1 (0-0.7) k/uL Basophils # 0.0 (0-0.2) k/uL Sodium 140 (137-145) mmol/L Potassium 4.9 (3.5-5.1) mmol/L Chloride 108 H (98-107) mmol/L Carbon Dioxide 22 (22-30) mmol/L Anion Gap 10 mmol/L BUN 13 (9-20) mg/dL Creatinine 0.80 (0.66-1.25) mg/dL Est GFR (CKD-EPI)AfAm >90 (>60 ml/min/1.73 sqM) Est GFR (CKD-EPI)NonAf >90 (>60 ml/min/1.73 sqM) Glucose 99 (74-99) mg/dL Calcium 9.9 (8.4-10.2) mg/dL Total Bilirubin 0.3 (0.2-1.3) mg/dL AST 32 (17-59) U/L ALT 59 (21-72) U/L Alkaline Phosphatase 70 (38-126) U/L Total Protein 7.6 (6.3-8.2) g/dL Albumin 4.5 (3.5-5.0) g/dL Urine Opiates Screen Not Detected (NotDetected) Ur Oxycodone Screen Not Detected (NotDetected) Urine Methadone Screen Not Detected (NotDetected) Ur Propoxyphene Screen Not Detected (NotDetected) Ur Barbiturates Screen Not Detected (NotDetected) U Tricyclic Antidepress Not Detected (NotDetected) Ur Phencyclidine Scrn Not Detected (NotDetected) Ur Amphetamines Screen Not Detected (NotDetected) U Methamphetamines Scrn Not Detected (NotDetected) U Benzodiazepines Scrn Not Detected (NotDetected) Urine Cocaine Screen Detected H (NotDetected) U Marijuana (THC) Screen Detected H (NotDetected) Disposition Clinical Impression: Bipolar disorder, Schizoaffective disorder, Posttraumatic stress disorder Disposition: TRANSFER TO PSYCH HOSP/UNIT Condition: Stable
[2018-08-09 16:07] LABS: ALT 59 U/L (21-72); AST 32 U/L (17-59); Albumin 4.5 g/dL (3.5-5.0); Alkaline Phosphatase 70 U/L (38-126); Anion Gap 10 mmol/L; Blood Urea Nitrogen 13 mg/dL (9-20); Calcium 9.9 mg/dL (8.4-10.2); Carbon Dioxide 22 mmol/L (22-30); Chloride 108 mmol/L (98-107); Glucose 99 mg/dL (74-99); Potassium 4.9 mmol/L (3.5-5.1); Sodium 140 mmol/L (137-145); Total Bilirubin 0.3 mg/dL (0.2-1.3); Total Protein 7.6 g/dL (6.3-8.2)
[2018-08-09 16:08] LABS: Basophils % (A) 0 %; Eosinophils # (A) 0.1 k/uL (0-0.7); Eosinophils % (A) 1 %; HCT 44.6 % (39.0-53.0); HGB 14.4 gm/dL (13.0-17.5); Lymphocytes # (A) 1.2 k/uL (1.0-4.8); Lymphocytes % (A) 17 %; MCH 29.8 pg (25.0-35.0); MCHC 32.3 g/dL (31.0-37.0); MCV 92.4 fL (80.0-100.0); Mean Platelet Volume 6.2; Monocytes # (A) 0.3 k/uL (0-1.0); Monocytes % (A) 5 %; Neutrophils # (A) 5.1 k/uL (1.3-7.7); Neutrophils % (A) 75 %; Platelet Count 272 k/uL (150-450); RBC 4.83 m/uL (4.30-5.90); RDW 13.4 % (11.5-15.5); WBC 6.8 k/uL (3.8-10.6)
[2018-08-09 16:20] LABS: Amphetamine Screen,Urine Not Detected (NotDetected); Benzodiazepines Screen,Urine Not Detected (NotDetected); Cocaine Screen,Urine Detected (NotDetected); Opiate Screen,Urine Not Detected (NotDetected); Phencyclidine Screen,Urine Not Detected (NotDetected); Urn Cannabinoid Scrn Detected (NotDetected)
[2018-08-09 16:21] LABS: Barbiturate Screen,Urine Not Detected (NotDetected); Methadone Screen, Urine Not Detected (NotDetected); Oxycodone Screen, Urine Not Detected (NotDetected); Tricyclic Antidepressant,Urine Not Detected (NotDetected)
[2018-08-09] MEDS ORDERED: ALBUTEROL NEBULIZED 2.5 MG/3 ML INHALATION STA (18:54)
[2018-08-10] MEDS ORDERED: PALIPERIDONE 6 MG TAB.ER.24 PO STA (15:21)
--- NOTE | 2018-08-11 04:53 | CDI ---
Documentation Clarification OP Dear Dr. Luke Heredia Please provide clinical impression & disposition. Thank you, Dimitris Rodríguez Cable Tool Operator If you have any questions, please contact Sprinkler Installer at [phone] [facility]
[2018-08-11] MEDS ORDERED: PALIPERIDONE 6 MG TAB.ER.24 PO STA (12:40)
[2018-08-11] MEDS ORDERED: ALBUTEROL NEBULIZED 2.5 MG/3 ML INHALATION PRN (17:44)
--- NOTE | 2018-08-11 17:44 | P.HPMEDMHU ---
History of Present Illness H&P Date: 08/11/18 Chief Complaint: Medical management 32 year old M with PMH of Asthma presents to the ED for failure to follow up with [facility]. Patient denies any complaints at this time. He reports a history of Asthma. Well controlled on Albuterol inhaler. He denies any recent hospitalizations for exacerbations. Patient reports a history of smoking, requesting Nicotine patch. He endorses 1/ 2 pack per day for the past 20 years. He denies any illicit drug use at this time. He does drink alcohol occasionally. He denies any headache, lower extremity edema, nausea, vomiting, fever, chills, cough, chest pain, shortness of breath, palpitations, changes in urination or bowel habits. Review of Systems All systems: negative Past Medical History Past Medical History: No Reported History Additional Past Medical History / Comment(s): Asthma History of Any Multi-Drug Resistant Organisms: None Reported Past Surgical History: No Surgical Hx Reported Past Psychological History: Bipolar, PTSD, Schizoaffective Disorder Smoking Status: Current every day smoker Past Alcohol Use History: Occasional Past Drug Use History: Cocaine, Marijuana - Past Family History Mother Additional Family Medical History / Comment(s): Bipolar disorder, leukemia Medications and Allergies Home Medications Medication Instructions Recorded Confirmed Type Albuterol Inhaler [Ventolin Hfa 2 puff INHALATION RT-Q6H PRN 11/25/17 08/09/18 History Inhaler] Paliperidone IM [Invega Sustenna] 156 mg IM ONCE #1 syr 07/31/18 08/09/18 Rx Paliperidone [Invega] 6 mg PO DAILY 08/09/18 08/09/18 History Allergies Allergy/AdvReac Type Severity Reaction Status Date / Time No Known Allergies Allergy Verified 08/09/18 13:57 Physical Exam Vitals: Vital Signs Temp Pulse Pulse Resp BP BP Pulse Ox 08/11/18 16:48 98.5 F 84 16 129/76 08/11/18 12:36 97.5 F L 76 14 124/60 98 08/11/18 06:10 84 18 116/78 97 08/10/18 18:54 97.5 F L 60 18 119/88 99 Intake and Output 08/11/18 08/11/18 08/11/18 06:59 14:59 22:59 Other: Weight 92.442 kg - Constitutional General appearance: average body habitus, no acute distress - EENT Eyes: EOMI ENT: NA/AT - Respiratory Respiratory: bilateral: CTA - Cardiovascular Rhythm: regular Heart sounds: normal: S1, S2 - Neurologic Neurologic: CNII-XII intact - Psychiatric Psychiatric: A&O x's 3 Cranial Nerve Examination - Cranial Nerves Cranial Nerve II- Optic: Intact Cranial Nerve III- Oculomotor: Intact Cranial Nerve IV- Trochlear: Intact Cranial Nerve V- Trigeminal: Intact Cranial Nerve - Abducens: Intact Cranial Nerve VII- Facial: Intact Cranial Nerve VIII- Auditory: Intact Cranial Nerve IX- Glossopharyngeal: Intact Cranial Nerve X- Vagus: Intact Cranial Nerve XI- Accessory: Intact Cranial Nerve XII- Hypoglossal: Intact Results CBC & Chem 7: 08/09/18 15:00 08/09/18 15:00 Assessment and Plan Assessment: Assessment and Plan 1. Asthma: Stable. Albuterol neb PRN for SOB/wheezing. 2. Smoker: Habitrol 21 mg patch Rest of management as per Psychiatry. Please call if you have an additional questions.
[2018-08-11] MEDS ORDERED: MAGNESIUM HYDROXIDE 2,400 MG/10 ML CUP PO PRN (20:06)
[2018-08-11] MEDS ORDERED: MAG HYDROX/AL HYDROX/SIMETH 30 ML CUP PO PRN (20:06)
[2018-08-11] MEDS ORDERED: ZIPRASIDONE 20 MG VIAL IM PRN (20:06)
[2018-08-11] MEDS ORDERED: NICOTINE 21MG/24HR PATCH TRANSDERM STA (20:14)
[2018-08-12] MEDS: ALBUTEROL INHALER 60 PUFF/8 GM INHALER INHALATION PRN ×4 (01:01→19:44)
[2018-08-12] MEDS: LORazepam 1 MG TAB PO PRN ×2 (01:21→20:16)
[2018-08-12] MEDS: NICOTINE 21MG/24HR PATCH TRANSDERM SCH (08:11)
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
[2018-08-12] MEDS ORDERED: NICOTINE 21MG/24HR PATCH TRANSDERM SCH (09:00)
[2018-08-12] MEDS ORDERED: PALIPERIDONE IM 156 MG/ML SYG IM ONE (09:00)
[2018-08-12] MEDS ORDERED: PALIPERIDONE IM 234 MG/1.5 ML SYG IM ONE (09:00)
[2018-08-12] MEDS: MULTIVITAMINS, THERA 1 EACH TAB PO SCH (16:05)
[2018-08-12] MEDS: PALIPERIDONE 6 MG TAB.ER.24 PO SCH (20:16)
[2018-08-12] MEDS: MIRTAZAPINE 15 MG TAB PO SCH (23:01)
[2018-08-13 06:52] VITALS: RESP 16
[2018-08-13] MEDS: NICOTINE 21MG/24HR PATCH TRANSDERM SCH (07:45)
[2018-08-13] MEDS: ALBUTEROL INHALER 60 PUFF/8 GM INHALER INHALATION PRN ×2 (08:57→13:32)
--- NOTE | 2018-08-13 11:05 | P.PN ---
Progress Note - Text Interval history: The patient's found in the hallway he follows me to an interview room. He reports feelings of being antagonized by a staff member this morning. He states he is trying to control his behavior. During treatment team meeting staff report that the patient has been acting appropriately and participating in group. He indicates he slept last night. He has no questions or concerns regarding his medication. He would like to be released as soon as possible. We have not yet been informed of when his court hearing will be held. Mental status exam: The patient is a tall thin male appearing his stated age. Hygiene and grooming are adequate. Speech is fluent spontaneous nonpressured. He denies having any suicidal ideation intent or plan. He is reporting no homicidal ideation intent or plan. He reports no auditory or visual hallucinations or any specific delusions. He demonstrates no evidence of hypomania or iván. Insight and judgment improving. Plan: The patient will continue on his current medications. We are temporarily using the oral invega to supplement. We are awaiting the court hearing date. We will monitor him for safety and encourage full participation in the milieu. Vital signs reviewed.
[2018-08-13] MEDS: MULTIVITAMINS, THERA 1 EACH TAB PO SCH (12:08)
[2018-08-13] MEDS: PALIPERIDONE 6 MG TAB.ER.24 PO SCH (20:09)
[2018-08-13] MEDS: LORazepam 1 MG TAB PO PRN (20:10)
[2018-08-13] MEDS: MIRTAZAPINE 15 MG TAB PO SCH (21:31)
[2018-08-14] MEDS: MULTIVITAMINS, THERA 1 EACH TAB PO SCH (07:43)
[2018-08-14] MEDS: NICOTINE 21MG/24HR PATCH TRANSDERM SCH (07:43)
--- NOTE | 2018-08-14 07:45 | P.PN ---
Progress Note - Text Interval history: The patient is found in his room he follows me to an interview room. He was informed that his court date was moved to tomorrow. He states his mood is stable he has been participating in groups. Staff report no behavioral issues. He is endorsing no thoughts of self-harm he is endorsing no hallucinations. He has been compliant with medication. Mental status exam: The patient is alert he is dressed in his own clothing hygiene grooming are adequate. Eye contact is appropriate. Speech is fluent and spontaneous nonpressured. He is endorsing no suicidal or homicidal ideation intent or plan. He is reporting no auditory or visual hallucinations or any specific delusions. He is demonstrating no evidence of psychosis during this interaction. He does not appear hypomanic or manic. Insight and judgment improving. He demonstrates no involuntary repetitive movements. He demonstrates no verbal or physical aggressiveness. Plan: The patient will continue on his current medication. He has a court hearing scheduled for tomorrow. After which we expect to discharge him from the mental health unit so long as he remains clinically stable. Vital signs reviewed. We will continue to monitor him for safety.
[2018-08-14] MEDS: ACETAMINOPHEN TAB 325 MG TAB PO PRN ×2 (09:35→14:55)
[2018-08-14] MEDS: ALBUTEROL INHALER 60 PUFF/8 GM INHALER INHALATION PRN (09:50)
[2018-08-14] MEDS: LORazepam 1 MG TAB PO PRN ×2 (14:55→21:57)
[2018-08-14] MEDS: PALIPERIDONE 6 MG TAB.ER.24 PO SCH (20:28)
[2018-08-14] MEDS: MIRTAZAPINE 15 MG TAB PO SCH (20:52)
[2018-08-14] MEDS ORDERED: ZIPRASIDONE 20 MG VIAL IM STA (22:59)
[2018-08-14] MEDS ORDERED: diphenhydrAMINE 50 MG CAP PO STA (23:19)
[2018-08-15 06:43] VITALS: BP 113/57; PULSE 71; TEMP 97.7
[2018-08-15] MEDS: ALBUTEROL INHALER 60 PUFF/8 GM INHALER INHALATION PRN (07:32)
[2018-08-15] MEDS: MULTIVITAMINS, THERA 1 EACH TAB PO SCH (08:26)
[2018-08-15] MEDS: NICOTINE 21MG/24HR PATCH TRANSDERM SCH (08:26)
--- NOTE | 2018-08-15 08:58 | P.DS ---
Providers Date of admission: 08/11/18 15:48 Expected date of discharge: 08/15/18 Attending physician: Andrew Rust Consults: 08/11/18 20:06 Consult Physician Routine Consulting Provider: Jennifer Barajas Consult Reason/Comments: H&P for mental health admission Do you want consulting provider notified?: Yes, Notify in am Primary care physician: Stated None - Discharge Diagnosis(es) (1) Psychosis Current Visit: No Status: Acute Priority: Medium (2) Major depression Current Visit: No Status: Acute Priority: Medium (3) Cocaine use disorder Current Visit: No Status: Acute Priority: Medium (4) Cannabis use disorder, mild, abuse Current Visit: No Status: Acute Priority: Medium Hospital Course: Brief summary of admission note: This patient is a 32-year-old male who is readmitted to the mental health unit through the emergency room on a pickup order due to noncompliance with outpatient psychiatric care at [facility]. The patient had recently been discharged from this mental health unit and was stabilized on Invega. He had signed a deferral agreement. Upon discharge she had missed several outpatient appointments one of which was for his next injection of Invega Sustenna. A pickup order was issued and he was brought in by the police. The patient states that he stayed on the oral Invega dose. He reported having no symptoms. He has a history of presenting with psychosis in the context of cocaine use a history of major depressive disorder cocaine use disorder cannabis use disorder. His urine drug screen again was positive for cocaine and cannabis. Summary of hospital course: The patient was admitted to the mental health unit involuntarily. A demand for hearing was scheduled which will take place this morning. The patient was continued on the oral invega he was given the second injection of invega systemic of 156 mg on 08/12/2018. He was seen by internal medicine for routine history and physical exam. Social work met with the patient to complete a psychosocial assessment. The patient endorses no thoughts of self-harm or harm to others. He endorsed no symptoms of psychosis. He was cooperative and easily directed during the course of his stay. He attended groups and appropriately participated. There were no behavioral issues reported during this hospitalization. We discussed his use of cocaine and cannabis. He states that he would like to attend inpatient chemical dependency treatment but not until after the holidays. Several times we reviewed the importance of him complying with outpatient care. Mental status exam: The patient is alert he presents with adequate hygiene grooming eye contact is appropriate. Speech is fluent spontaneous nonpressured. He reports his mood is good he denies having any suicidal ideation intent or plan. He is reporting no homicidal ideation intent or plan. He reports no auditory or visual hallucinations he reports no specific delusions. There is no observed evidence of psychosis. Thought process is linear he demonstrates no tangential thinking loose associations or flight of ideas. He does not appear hypomanic or manic. Insight and judgment grossly intact. He demonstrates no verbal or physical aggressiveness. He demonstrates no involuntary repetitive movements. Affect is appropriately expresses. Impressions 1. Psychosis unspecified rule out substance-induced psychosis, rule out primary psychotic etiology, history of major depressive disorder, cocaine use disorder, cannabis use disorder Plan: The patient will be discharged mental health unit today following his court hearing. He will continue on Invega Sustenna and will be due for his 117 mg injection on 09/09/2018. He does not wish to enter inpatient chemical dependence treatment at this time but states he is willing to do so after the holiday. We discussed the importance of him abstaining from cocaine and cannabis alcohol and any other substance as these substances can precipitate symptoms of psychosis and elevate his safety risk. He will return to his prior residence. He will follow up with community mental health for ongoing care. He is instructed to return to the hospital if any acute safety concerns. Patient Condition at Discharge: Stable Plan - Discharge Summary Discharge Rx Participant: No New Discharge Prescriptions: New Nicotine 21Mg/24Hr Patch [Habitrol] 1 patch TRANSDERM DAILY #10 patch Paliperidone IM [Invega Sustenna] 117 mg IM ONCE #1 syr Continue Albuterol Inhaler [Ventolin Hfa Inhaler] 2 puff INHALATION RT-Q6H PRN PRN Reason: Shortness Of Breath Discontinued Paliperidone IM [Invega Sustenna] 156 mg IM ONCE #1 syr Paliperidone [Invega] 6 mg PO DAILY Discharge Medication List Albuterol Inhaler [Ventolin Hfa Inhaler] 2 puff INHALATION RT-Q6H PRN 11/25/17 [ History] Nicotine 21Mg/24Hr Patch [Habitrol] 1 patch TRANSDERM DAILY #10 patch 08/15/18 [ Rx] Paliperidone IM [Invega Sustenna] 117 mg IM ONCE #1 syr 08/15/18 [Rx] Follow up Appointment(s)/Referral(s): None,Stated [Primary Care Provider] - 1-2 days Patient Instructions/Handouts: Depression (DC), Suicide Prevention (DC) Activity/Diet/Wound Care/Special Instructions: Activity and Diet as tolerated. Avoid the use of street drugs and alcohol. Take all medications as prescribed, when you are in need of refills contact your medical doctor or psychiatrist. Please go to all scheduled outpatient appointments for aftercare treatment. If symptoms return or worsen you can call the crisis line @ and/or return to the nearest emergency room for evaluation.
== END 2018-08-15 12:12 | disposition home or self-care (01) | DRG 885 ==
LOC: EC 13:02 → 3MHU 08-11 15:48
PROVIDERS: ADMIT Psychiatry & Neurology Psychiatry; ATTEND Psychiatry & Neurology Psychiatry
DX: F29 Unspecified psychosis not due to a substance or known physiological condition (principal); F32.9 Major depressive disorder, single episode, unspecified; F12.19 Cannabis abuse with unspecified cannabis-induced disorder; F14.99 Cocaine use, unspecified with unspecified cocaine-induced disorder; F17.200 Nicotine dependence, unspecified, uncomplicated; F25.9 Schizoaffective disorder, unspecified; F43.10 Post-traumatic stress disorder, unspecified; J45.909 Unspecified asthma, uncomplicated; Z80.6 Family history of leukemia; Z91.19 Patient's noncompliance with other medical treatment and regimen; Z91.410 Personal history of adult physical and sexual abuse; Z79.899 Other long term (current) drug therapy
CPT/HCPCS: 36415; 80053; 80306; 82075; 85025; 94640; 99285

== ENCOUNTER 2024-05-22 09:12 | Emergency (ER) | payer OTHER ==
[2024-05-22 09:16] VITALS: BP 134/75; PULSE 78; RESP 16; TEMP 97.8
--- NOTE | 2024-05-22 09:22 | ED ---
General Adult HPI - General Chief complaint: Recheck/Abnormal Lab/Rx Stated complaint: Physical for job Time Seen by Provider: 05/22/24 09:15 Source: patient, RN notes reviewed Mode of arrival: ambulatory Limitations: no limitations - History of Present Illness Initial comments: 38-year-old male presents emergency department complaint of needing preemplo yment physical. 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 He is right dominant he has no decreased functional mobility or strength. Patient also requesting refill of his albuterol inhaler for asthma. - Related Data Home Medications Medication Instructions Recorded Confirmed Albuterol Inhaler [Ventolin Hfa 2 puff INHALATION RT-Q6H PRN 11/25/17 08/09/18 Inhaler] Previous Rx's Medication Instructions Recorded Nicotine 21Mg/24Hr Patch [Habitrol] 1 patch TRANSDERM DAILY #10 patch 08/15/18 Paliperidone IM [Invega Sustenna] 117 mg IM ONCE #1 syr 08/15/18 Albuterol Inhaler [Ventolin Hfa 1 - 2 puff INHALATION Q6H PRN #1 05/22/24 Inhaler] each methocarbamoL [Robaxin] 500 mg PO TID PRN #15 tab 05/22/24 Allergies Allergy/AdvReac Type Severity Reaction Status Date / Time No Known Allergies Allergy Verified 05/22/24 09:15 Review of Systems ROS Statement: Those systems with pertinent positive or pertinent negative responses have been documented in the HPI. ROS Other: All systems not noted in ROS Statement are negative. Past Medical History Past Medical History: No Reported History Additional Past Medical History / Comment(s): Asthma History of Any Multi-Drug Resistant Organisms: None Reported Past Surgical History: No Surgical Hx Reported Past Psychological History: Bipolar, PTSD, Schizoaffective Disorder Past Alcohol Use History: Occasional Past Drug Use History: Cocaine, Marijuana - Past Family History Mother Additional Family Medical History / Comment(s): Bipolar disorder, leukemia General Exam Limitations: no limitations General appearance: alert, in no apparent distress Head exam: Present: atraumatic, normocephalic, normal inspection Eye exam: Present: normal appearance, PERRL, EOMI. Absent: scleral icterus, conjunctival injection, periorbital swelling ENT exam: Present: normal exam, normal oropharynx, mucous membranes moist Neck exam: Present: normal inspection, full ROM. Absent: tenderness, meningismus, lymphadenopathy Respiratory exam: Present: normal lung sounds bilaterally. Absent: respiratory distress, wheezes, rales, rhonchi, stridor Cardiovascular Exam: Present: regular rate, normal rhythm, normal heart sounds. Absent: systolic murmur, diastolic murmur, rubs, gallop, clicks Extremities exam: Present: normal inspection, full ROM, normal capillary refill. Absent: tenderness, pedal edema, joint swelling, calf tenderness Neurological exam: Present: alert, oriented X3, CN II-XII intact, reflexes normal. Absent: motor sensory deficit Course Vital Signs 05/22/24 09:12 Temperature 97.8 F Pulse Rate 78 Respiratory 16 Rate Blood Pressure 134/75 O2 Sat by Pulse 95 Oximetry Medical Decision Making - Medical Decision Making Was pt. sent in by a medical professional or institution (, PA, METROLOGY TECHNICIAN, urgent care, hospital, or shelter...) When possible be specific @ -No Did you speak to anyone other than the patient for history (EMS, parent, family, police, friend...)? What history was obtained from this source @ -No Did you review nursing and triage notes (agree or disagree)? Why? @ -I reviewed and agree with nursing and triage notes Were old charts reviewed (outside hosp., previous admission, EMS record, old EKG, old radiological studies, urgent care reports/EKG's, shelter records)? Report findings @ -No old charts were reviewed Differential Diagnosis (chest pain, altered mental status, abdominal pain women, abdominal pain men, vaginal bleeding, weakness, fever, dyspnea, syncope, headache, dizziness, GI bleed, back pain, seizure, CVA, palpatations, mental health, musculoskeletal)? @ -Shoulder pain, preemployment physical, asthma, shoulder dislocation EKG interpreted by me (3pts min.). @ -None X-rays interpreted by me (1pt min.). @ -None done CT interpreted by me (1pt min.). @ -None done U/S interpreted by me (1pt. min.). @ -None done What testing was considered but not performed or refused? (CT, X-rays, U/S, labs)? Why? @ -None What meds were considered but not given or refused? Why? @ -None Did you discuss the management of the patient with other professionals (professionals i.e. , PA, METROLOGY TECHNICIAN, lab, RT, psych nurse, social worker clinical, trial court justice, teacher, animal control officer, correctional counselor/case manager)? Give summary @ -No Was smoking cessation discussed for >3mins.? @ -No Was critical care preformed (if so, how long)? @ -No Were there social determinants of health that impacted care today? How? (Homelessness, low income, unemployed, alcoholism, drug addiction, transportation, low edu. Level, literacy, decrease access to med. care, care home, rehab)? @ -No Was there de-escalation of care discussed even if they declined (Discuss DNR or withdrawal of care, Hospice)? DNR status @ -No What co-morbidities impacted this encounter? (DM, HTN, Smoking, COPD, CAD, Cancer, CVA, ARF, Chemo, Hep., AIDS, mental health diagnosis, sleep apnea, morbid obesity)? @ -None Was patient admitted / discharged? Hospital course, mention meds given and route, prescriptions, significant lab abnormalities, going to OR and other pertinent info. @ -Discharge patient presented for preemployment physical he does not have a current form. 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 Undiagnosed new problem with uncertain prognosis? @ -No Drug Therapy requiring intensive monitoring for toxicity (Heparin, Nitro, Insulin, Cardizem)? @ -No Were any procedures done? @ -No Diagnosis/symptom? @ -Preemployment physical, asthma, medication refill Acute, or Chronic, or Acute on Chronic? @ -[Acute Uncomplicated (without systemic symptoms) or Complicated (systemic symptoms)? @ -Uncomplicated Side effects of treatment? @ -[No Exacerbation, Progression, or Severe Exacerbation? @ -No Poses a threat to life or bodily function? How? (Chest pain, [place], [place], pneumonia, PE, COPD, DKA, ARF, appy, cholecystitis, CVA, Diverticulitis, Homicidal, Suicidal, threat to staff... and all critical care pts) @ -No Disposition Clinical Impression: Physical exam, pre-employment Disposition: HOME SELF-CARE Condition: Stable Additional Instructions: Please return to the Emergency Department if symptoms worsen or any other concerns. Prescriptions: methocarbamoL [Robaxin] 500 mg PO TID PRN #15 tab PRN Reason: muscle spasms Albuterol Inhaler [Ventolin Hfa Inhaler] 1 - 2 puff INHALATION Q6H PRN #1 each PRN Reason: Shortness Of Breath Is patient prescribed a controlled substance at d/c from ED?: No Referrals: None,Stated [Primary Care Provider] - 1-2 days Time of Disposition: 09:22
== END 2024-05-22 09:28 | disposition home or self-care (01) ==
LOC: EC 09:12
DX: Z02.1 Encounter for pre-employment examination (principal)
CPT/HCPCS: 99283

== ENCOUNTER 2024-06-30 13:40 | Emergency (ER) | payer OTHER ==
[2024-06-30 13:49] VITALS: RESP 18; TEMP 97.6
[2024-06-30] MEDS: ORPHENADRINE 30 MG/ML 2 ML VIAL IM STA (14:40)
[2024-06-30] MEDS: KETOROLAC 15 MG/ML 1 ML VIAL IM STA ×2 (14:41→15:56)
--- NOTE | 2024-06-30 15:04 | ED ---
Back Pain HPI - General Chief Complaint: Back Pain/Injury Stated Complaint: back pain Time Seen by Provider: 06/30/24 13:54 Source: patient Limitations: no limitations - History of Present Illness Initial Comments: This is a 38-year-old male presenting with lower back pain following a lifting injury x 3 days ago. Patient states he was attempting to lift a trailer when he performed a twisting movement causing sharp, constant low back pain with tingling in right toes. Patient Dors is hearing a pop/pull up the time of the incident. Patient states pain is worse when walking. Patient states he was seen on the day of the incident on June 28 but left without receiving treatment or imaging. Patient states he has an appointment with his primary care tomorrow. Patient denies saddle paresthesia or urinary symptoms MD Complaint: back pain, back injury Onset/Timin -: days(s) Similar Symptoms Previously: No Place: street Severity scale (1-10): 8 Quality: sharp Consistency: constant Improves With: immobilization Worsens With: movement Context: while lifting, turning/twisting Treatments Prior to Arrival: NSAIDS - Related Data Home Medications Medication Instructions Recorded Confirmed Albuterol Inhaler [Ventolin Hfa 2 puff INHALATION RT-Q6H PRN 11/25/17 08/09/18 Inhaler] Previous Rx's Medication Instructions Recorded Nicotine 21Mg/24Hr Patch [Habitrol] 1 patch TRANSDERM DAILY #10 patch 08/15/18 Paliperidone IM [Invega Sustenna] 117 mg IM ONCE #1 syr 08/15/18 Albuterol Inhaler [Ventolin Hfa 1 - 2 puff INHALATION Q6H PRN #1 05/22/24 Inhaler] each methocarbamoL [Robaxin] 500 mg PO TID PRN #15 tab 05/22/24 Ibuprofen [Motrin] 800 mg PO Q8HR PRN #30 tab 06/30/24 predniSONE 50 mg PO DAILY #5 tab 06/30/24 Allergies Allergy/AdvReac Type Severity Reaction Status Date / Time No Known Allergies Allergy Verified 06/28/24 16:31 Review of Systems ROS Statement: Those systems with pertinent positive or pertinent negative responses have been documented in the HPI. ROS Other: All systems not noted in ROS Statement are negative. Past Medical History Past Medical History: No Reported History Additional Past Medical History / Comment(s): Asthma History of Any Multi-Drug Resistant Organisms: None Reported Past Surgical History: No Surgical Hx Reported Past Psychological History: Bipolar, PTSD, Schizoaffective Disorder Smoking Status: Current every day smoker Past Alcohol Use History: Occasional Past Drug Use History: Cocaine, Marijuana - Past Family History Mother Additional Family Medical History / Comment(s): Bipolar disorder, leukemia General Exam Limitations: no limitations General appearance: alert, in no apparent distress Head exam: Present: atraumatic, normocephalic, normal inspection Eye exam: Present: normal appearance, PERRL, EOMI. Absent: scleral icterus, conjunctival injection, periorbital swelling ENT exam: Present: normal exam, mucous membranes moist Neck exam: Present: normal inspection. Absent: tenderness, meningismus, lymphadenopathy Respiratory exam: Present: normal lung sounds bilaterally. Absent: respiratory distress, wheezes, rales, rhonchi, stridor Cardiovascular Exam: Present: regular rate, normal rhythm, normal heart sounds. Absent: systolic murmur, diastolic murmur, rubs, gallop, clicks GI/Abdominal exam: Present: soft, normal bowel sounds. Absent: distended, tenderness, guarding, rebound, rigid Extremities exam: Present: normal inspection, full ROM, normal capillary refill. Absent: tenderness, pedal edema, joint swelling, calf tenderness Back exam: Present: tenderness, muscle spasm, paraspinal tenderness, vertebral tenderness Neurological exam: Present: alert, oriented X3, CN II-XII intact Psychiatric exam: Present: normal affect, normal mood Skin exam: Present: warm, dry, intact, normal color. Absent: rash Course Vital Signs 06/30/24 06/30/24 13:45 15:40 Temperature 97.6 F Pulse Rate 74 71 Respiratory 18 18 Rate Blood Pressure 117/69 132/80 O2 Sat by Pulse 98 98 Oximetry Medical Decision Making - Medical Decision Making Was pt. sent in by a medical professional or institution (, PA, FIRE EXTINGUISHER TECHNICIAN, urgent care, hospital, or prison...) When possible be specific @ -No Did you speak to anyone other than the patient for history (EMS, parent, family, police, friend...)? What history was obtained from this source @ -No Did you review nursing and triage notes (agree or disagree)? Why? @ -I reviewed and agree with nursing and triage notes Were old charts reviewed (outside hosp., previous admission, EMS record, old EKG, old radiological studies, urgent care reports/EKG's, prison records)? Report findings @ -Reviewed chart from June 28 when patient was seen for same complaint. Differential Diagnosis (chest pain, altered mental status, abdominal pain women, abdominal pain men, vaginal bleeding, weakness, fever, dyspnea, syncope, headache, dizziness, GI bleed, back pain, seizure, CVA, palpatations, mental health, musculoskeletal)? @ -Differential Back Pain: Strain, zoster, cauda equina syndrome, epidural abscess, vertebral osteomyelitis, discitis, fracture, subluxation, disc herniation, DJD, spinal stenosis, dissection, AAA, pancreatitis, peptic ulcer disease, pyelonephritis, kidney stone, this is not meant to be an all-inclusive list. EKG interpreted by me (3pts min.). @ -Not done X-rays interpreted by me (1pt min.). @ -Lumbar x-ray reveals no acute fractures or dislocation multilevel disc degeneration CT interpreted by me (1pt min.). @ -None done U/S interpreted by me (1pt. min.). @ -None done What testing was considered but not performed or refused? (CT, X-rays, U/S, labs)? Why? @ -None What meds were considered but not given or refused? Why? @ -Patient left before any medications for pain were given Did you discuss the management of the patient with other professionals (professionals i.e. , PA, FIRE EXTINGUISHER TECHNICIAN, lab, RT, psych nurse, older adult social work specialist, investigator claims, teacher, event security officer, case finisher)? Give summary @ -No Was smoking cessation discussed for >3mins.? @ -No Was critical care preformed (if so, how long)? @ -No Were there social determinants of health that impacted care today? How? (Homelessness, low income, unemployed, alcoholism, drug addiction, transportation, low edu. Level, literacy, decrease access to med. care, [place] [facility], rehab)? @ -Homeless, EtOH Was there de-escalation of care discussed even if they declined (Discuss DNR or withdrawal of care, Hospice)? DNR status @ -No What co-morbidities impacted this encounter? (DM, HTN, Smoking, COPD, CAD, Cancer, CVA, ARF, Chemo, Hep., AIDS, mental health diagnosis, sleep apnea, morbid obesity)? @ -None Was patient admitted / discharged? Hospital course, mention meds given and route, prescriptions, significant lab abnormalities, going to OR and other pe rtinent info. @ -Patient left AMA after lower back radiograph. Motrin and prednisone sent to pharmacy Undiagnosed new problem with uncertain prognosis? @ -No Drug Therapy requiring intensive monitoring for toxicity (Heparin, Nitro, Insulin, Cardizem)? @ -No Were any procedures done? @ -No Diagnosis/symptom? @ -Mechanical low back pain/strain Acute, or Chronic, or Acute on Chronic? @ -Acute Uncomplicated (without systemic symptoms) or Complicated (systemic symptoms)? @ -Uncomplicated Side effects of treatment? @ -No Exacerbation, Progression, or Severe Exacerbation? @ -No Poses a threat to life or bodily function? How? (Chest pain, [place], [place], pneumonia, PE, COPD, DKA, ARF, appy, cholecystitis, CVA, Diverticulitis, Homicidal, Suicidal, threat to staff... and all critical care pts) @ -No Disposition Clinical Impression: Mechanical back pain Disposition: LEFT AGAINST MEDICAL ADVICE Condition: Good Instructions (If sedation given, give patient instructions): Acute Low Back Pain (ED) Prescriptions: Ibuprofen [Motrin] 800 mg PO Q8HR PRN #30 tab PRN Reason: Pain predniSONE 50 mg PO DAILY #5 tab Is patient prescribed a controlled substance at d/c from ED?: No Referrals: Vitaliy Cordova MD [Primary Care Provider] - 1-2 days Time of Disposition: 15:55
--- NOTE | 2024-06-30 15:13 | XR ---
EXAMINATION TYPE: XR lumbosacral spine min 4V DATE OF EXAM: 06/30/2024 3:09 PM COMPARISON: None CLINICAL INDICATION: Male, 38 years old with history of Low back pain; [facility] TECHNIQUE: XR lumbosacral spine min 4V - Frontal, lateral , bilateral oblique and coned in L5-S1 late ral views of the spine. FINDINGS: No evidence of any acute osseous pathology. No evidence of loss of vertebral body height i s seen. There is normal alignment of the lumbar vertebral bodies. Mild scattered disc space narrowing . Minimal osteophyte formation throughout the visualized spine. There is facet joint arthropathy thro ughout the spine. Scattered at least mild neural foraminal stenosis. IMPRESSION: 1. No acute fracture. 2. Mild multilevel disc degeneration. [facility], , 06/30/2024 3:10 PM
[2024-06-30 15:42] VITALS: BP 132/80; PULSE 71
[2024-06-30] MEDS ORDERED: IBUPROFEN 800 MG TAB PO STA (15:55)
[2024-06-30] MEDS ORDERED: ACET/COD 300 MG/30 MG STARTER PACK 6 TAB BTL PO STA (15:55)
[2024-06-30] MEDS: HYDROmorphone 0.5 MG/0.5 ML SYRINGE IM STA (15:56)
== END 2024-06-30 15:58 | disposition left against medical advice (07) ==
LOC: EC 13:40
DX: S39.012A Strain of muscle, fascia and tendon of lower back, initial encounter (principal); F17.200 Nicotine dependence, unspecified, uncomplicated; Z53.29 Procedure and treatment not carried out because of patient's decision for other reasons; X50.0XXA Overexertion from strenuous movement or load, initial encounter; Y93.01 Activity, walking, marching and hiking
CPT/HCPCS: 72110; 99283; 96372 ×2; J2360; J1885

== ENCOUNTER 2024-07-09 16:52 | Emergency (ER) | payer OTHER ==
[2024-07-09 17:02] VITALS: RESP 18
--- NOTE | 2024-07-09 17:54 | ED ---
Back Pain HPI - General Source: patient, RN notes reviewed Limitations: no limitations - History of Present Illness MD Complaint: back pain Onset/Timin -: days(s) Place: home Severity scale (1-10): 9 <Dashawn Mtz - Last Filed: 07/09/24 17:51> <Addie Cowan - Last Filed: 07/09/24 20:42> - General Chief Complaint: Back Pain/Injury Stated Complaint: back pain Time Seen by Provider: 07/09/24 17:08 - History of Present Illness Initial Comments: Quick note: This is a 38-year-old male presenting with low back pain (9 out of 10) x 2 days. Patient was seen in this ER about 9 days ago for low back pain and december after lower back x-ray was confirmed to be normal. Patient states he felt better after last ER visit before having return of low back pain while mowing his lawn yesterday. Patient states pain is worse with movement. Denies radiculopathy, distal paresthesia saddle paresthesia, urinary incontinence/retention. (Dashawn Mtz) This is a 38-year-old male is presenting to the emergency department chief complaint of lumbar back pain that has been ongoing over the past few weeks. Patient states that symptoms began after he was lifting something heavy and felt a popping sensation to his lumbar spine. Patient had recent x-ray completed in the emergency room with no acute findings. Patient states that pain is exacerbated with movement. He denies loss of bladder or bowel continence, saddle anesthesias, paresthesias. (Addie Cowan) - Related Data Home Medications Medication Instructions Recorded Confirmed Albuterol Inhaler [Ventolin Hfa 2 puff INHALATION RT-Q6H PRN 11/25/17 08/09/18 Inhaler] Previous Rx's Medication Instructions Recorded Nicotine 21Mg/24Hr Patch [Habitrol] 1 patch TRANSDERM DAILY #10 patch 08/15/18 Paliperidone IM [Invega Sustenna] 117 mg IM ONCE #1 syr 08/15/18 Albuterol Inhaler [Ventolin Hfa 1 - 2 puff INHALATION Q6H PRN #1 05/22/24 Inhaler] each methocarbamoL [Robaxin] 500 mg PO TID PRN #15 tab 05/22/24 Ibuprofen [Motrin] 800 mg PO Q8HR PRN #30 tab 06/30/24 predniSONE 50 mg PO DAILY #5 tab 06/30/24 Allergies Allergy/AdvReac Type Severity Reaction Status Date / Time No Known Allergies Allergy Verified 07/09/24 16:57 Review of Systems ROS Other: All systems not noted in ROS Statement are negative. <Dashawn Mtz - Last Filed: 07/09/24 17:51> ROS Other: All systems not noted in ROS Statement are negative. <Josh Cowanoe - Last Filed: 07/09/24 20:42> ROS Statement: Those systems with pertinent positive or pertinent negative responses have been documented in the HPI. Past Medical History Past Medical History: No Reported History Additional Past Medical History / Comment(s): Asthma History of Any Multi-Drug Resistant Organisms: None Reported Past Surgical History: No Surgical Hx Reported Past Psychological History: Bipolar, PTSD, Schizoaffective Disorder Smoking Status: Current every day smoker Past Alcohol Use History: Occasional Past Drug Use History: Cocaine, Marijuana - Past Family History Mother Additional Family Medical History / Comment(s): Bipolar disorder, leukemia <Dashawn Mtz - Last Filed: 07/09/24 17:51> General Exam Limitations: no limitations <Dashawn Mtz Filed: 07/09/24 17:51> General appearance: alert, in no apparent distress ENT exam: Present: normal exam, mucous membranes moist Neck exam: Present: normal inspection. Absent: tenderness, meningismus, lymphadenopathy Respiratory exam: Present: normal lung sounds bilaterally. Absent: respiratory distress, wheezes, rales, rhonchi, stridor Cardiovascular Exam: Present: regular rate, normal rhythm, normal heart sounds. Absent: systolic murmur, diastolic murmur, rubs, gallop, clicks GI/Abdominal exam: Present: soft, normal bowel sounds. Absent: distended, tenderness, guarding, rebound, rigid Extremities exam: Present: normal inspection, full ROM, normal capillary refill. Absent: tenderness, pedal edema, joint swelling, calf tenderness Back exam: Present: normal inspection, tenderness (lumbar spine) Neurological exam: Present: alert, oriented X3, CN II-XII intact Skin exam: Present: warm, dry, intact, normal color. Absent: rash <SurjiteleheidyAddie - Last Filed: 07/09/24 20:42> - General Exam Comments Initial Comments: Visual Physical Exam Vital signs reviewed General: Well-appearing, nontoxic, no acute distress. Head: Normocephalic, atraumatic Eyes: PERRLA, EOMI ENT: Airway patent Chest: Nonlabored breathing Skin: No visual rash, normal skin tone Neuro: Alert and oriented 3 Musculoskeletal: No gross abnormalities (Dashawn Mtz) Course Vital Signs 07/09/24 07/09/24 16:57 19:53 Temperature 98.1 F 97.8 F Pulse Rate 88 72 Respiratory 18 18 Rate Blood Pressure 116/55 142/81 O2 Sat by Pulse 98 97 Oximetry Medical Decision Making <Dashawn Mtz - Last Filed: 07/09/24 17:51> <Addie Cowan - Last Filed: 07/09/24 20:42> - Medical Decision Making I completed the quick note portion of this chart signed MINDA Villaseñor (Dashawn Mtz) Was pt. sent in by a medical professional or institution (ERNESTO Mtz, INDEPENDENT CROP CONSULTANT, urgent care, hospital, or assisted...) When possible be specific @ -No Did you speak to anyone other than the patient for history (EMS, parent, family, police, friend...)? What history was obtained from this source @ -No Did you review nursing and triage notes (agree or disagree)? Why? @ -I reviewed and agree with nursing and triage notes Were old charts reviewed (outside hosp., previous admission, EMS record, old EKG, old radiological studies, urgent care reports/EKG's, assisted records)? Report findings @ -No old charts were reviewed Differential Diagnosis (chest pain, altered mental status, abdominal pain women, abdominal pain men, vaginal bleeding, weakness, fever, dyspnea, syncope, headache, dizziness, GI bleed, back pain, seizure, CVA, palpatations, mental health, musculoskeletal)? @ -Differential Back Pain: Strain, zoster, cauda equina syndrome, epidural abscess, vertebral osteomyelitis, discitis, fracture, subluxation, disc herniation, DJD, spinal stenosis, dissection, AAA, pancreatitis, peptic ulcer disease, pyelonephritis, kidney stone, this is not meant to be an all-inclusive list. EKG interpreted by me (3pts min.). @ -None X-rays interpreted by me (1pt min.). @ -None done CT interpreted by me (1pt min.). @ -CT of the lumbar spine without contrast reveals no evidence of spinal fracture with a remote right L3 transverse process fracture seen on prior imaging in 2018 U/S interpreted by me (1pt. min.). @ -None done What testing was considered but not performed or refused? (CT, X-rays, U/S, labs)? Why? @ -None What meds were considered but not given or refused? Why? @ -None Did you discuss the management of the patient with other professionals (professionals i.e. DrJack, PA, INDEPENDENT CROP CONSULTANT, lab, RT, psych nurse, social organization professor, deployment specialist, teacher, licensed loan officer, casework specialist)? Give summary @ -No Was smoking cessation discussed for >3mins.? @ -No Was critical care preformed (if so, how long)? @ -No Were there social determinants of health that impacted care today? How? (Homelessness, low income, unemployed, alcoholism, drug addiction, transportation, low edu. Level, literacy, decrease access to med. care, shelter, rehab)? @ -No Was there de-escalation of care discussed even if they declined (Discuss DNR or withdrawal of care, Hospice)? DNR status @ -No What co-morbidities impacted this encounter? (DM, HTN, Smoking, COPD, CAD, Cancer, CVA, ARF, Chemo, Hep., AIDS, mental health diagnosis, sleep apnea, morbid obesity)? @ -None Was patient admitted / discharged? Hospital course, mention meds given and route, prescriptions, significant lab abnormalities, going to OR and other pertinent info. @ -Discharge. 30-year-old male with lumbar back pain. Patient was visually evaluated emergency department waiting room as a quick note where CT imaging was ordered. Patient is noted to have mild tenderness palpation of the lumbar spine. There are no red flag symptoms concerning for cauda equina syndrome. CT negative for acute process. Patient stable for discharge. Continue supportive treatment at home. Discussed with Dr. rivas Undiagnosed new problem with uncertain prognosis? @ -No Drug Therapy requiring intensive monitoring for toxicity (Heparin, Nitro, Insulin, Cardizem)? @ -No Were any procedures done? @ -No Diagnosis/symptom? @ -lumbar back pain Acute, or Chronic, or Acute on Chronic? @ -acute Uncomplicated (without systemic symptoms) or Complicated (systemic symptoms)? @ -uncomplicated Side effects of treatment? @ -No Exacerbation, Progression, or Severe Exacerbation? @ -No Poses a threat to life or bodily function? How? (Chest pain, [place], [place], pneumonia, PE, COPD, DKA, ARF, appy, cholecystitis, CVA, Diverticulitis, Homicidal, Suicidal, threat to staff... and all critical care pts) @ -No (Addie Cowan) Disposition <Dashawn Mtz - Last Filed: 07/09/24 17:51> Is patient prescribed a controlled substance at d/c from ED?: No Time of Disposition: 19:45 <Addie Cowan - Last Filed: 07/09/24 20:42> Clinical Impression: Back pain Disposition: HOME SELF-CARE Condition: Good Instructions (If sedation given, give patient instructions): Acute Low Back Pain (ED) Additional Instructions: Please return to the Emergency Department if symptoms worsen or any other concerns. Referrals: Julita Brumfield MD [STAFF PHYSICIAN] - 1-2 days
--- NOTE | 2024-07-09 18:38 | CT ---
EXAMINATION TYPE: CT lumbar spine wo con DATE OF EXAM: 07/09/2024 6:31 PM COMPARISON: 04/09/2018 CLINICAL INDICATION: Male, 38 years old with history of Low back pain; TECHNIQUE: Multiple axial images were obtained from the midportion of T11 through the sacroiliac magdiel nts. Soft tissue and bone windows in coronal and sagittal planes were obtained and reviewed. Contrast used: mL of , (None, if empty). Oral contrast used: (None, if empty). CT DLP: 1197.6 mGycm, Automated exposure control for dose reduction was used. FINDINGS: Alignment: There are 5 lumbar type vertebral bodies within normal alignment. Bone: No evidence for acute fracture. Suspected remote fracture of the right transverse process of L 3. Discs: T12-L1: No spinal canal or neural foraminal stenosis is identified. L1-L2: No spinal canal or neural foraminal stenosis is identified. L2-L3: No spinal canal or neural foraminal stenosis is identified. L3-L4: No spinal canal or neural foraminal stenosis is identified. L4-L5: Disc bulging with [id number] neural foraminal stenosis bilaterally. L5-S1: No spinal canal or neural foraminal stenosis is identified. Other: None IMPRESSION: 1. No evidence for spinal fracture. 2. Remote right L3 transverse process fracture seen on prior on 04/09/2018. [facility], , 07/09/2024 6:36 PM
[2024-07-09 19:54] VITALS: BP 142/81; PULSE 72; TEMP 97.8
== END 2024-07-09 19:54 | disposition home or self-care (01) ==
LOC: EC 16:52
DX: M54.50 Low back pain, unspecified (principal); F17.200 Nicotine dependence, unspecified, uncomplicated
CPT/HCPCS: 72131; 99283

== ENCOUNTER 2024-07-15 07:18 | Inpatient (IN) | payer MEDICAID, OTHER ==
--- NOTE | 2024-07-15 08:19 | ED ---
Psych HPI - General Chief Complaint: Psychiatric Symptoms Stated Complaint: mental health Time Seen by Provider: 07/15/24 07:30 Source: patient Mode of arrival: ambulatory - History of Present Illness Initial Comments: 38-year-old male presents to the emergency department reporting intrusive thoughts. States that he is having thoughts about harming himself and others. He has a history of bipolar disorder. Denies being on any medications or seeing any type of counselor or therapist. He reports to 5 previous attempts at suicide but nothing recent. Denies drug or alcohol use. No other alleviating, precipitating modifying factors - Related Data Home Medications Medication Instructions Recorded Confirmed Albuterol Inhaler [Ventolin Hfa 2 puff INHALATION RT-QID PRN 07/15/24 07/15/24 Inhaler] Doxycycline Hyclate 100 mg PO BID 07/15/24 07/15/24 Previous Rx's Medication Instructions Recorded Divalproex [Depakote] 500 mg PO BID 30 Days #60 tab 07/20/24 Nicotine 14Mg/24Hr Patch [Habitrol] 1 patch TRANSDERM DAILY patch 07/20/24 hydrOXYzine pamoate [Vistaril] 50 mg PO TID 30 Days #180 cap 07/20/24 Allergies Allergy/AdvReac Type Severity Reaction Status Date / Time No Known Allergies Allergy Verified 07/15/24 09:34 Review of Systems ROS Statement: Those systems with pertinent positive or pertinent negative responses have been documented in the HPI. ROS Other: All systems not noted in ROS Statement are negative. Past Medical History Past Medical History: No Reported History Additional Past Medical History / Comment(s): Asthma History of Any Multi-Drug Resistant Organisms: None Reported Past Surgical History: No Surgical Hx Reported Past Psychological History: Bipolar, PTSD, Schizoaffective Disorder Smoking Status: Current every day smoker Past Alcohol Use History: Occasional Past Drug Use History: Cocaine, Marijuana - Past Family History Mother Additional Family Medical History / Comment(s): Bipolar disorder, leukemia General Exam Limitations: no limitations General appearance: alert, in no apparent distress Head exam: Present: atraumatic, normocephalic, normal inspection Eye exam: Present: normal appearance, PERRL, EOMI. Absent: scleral icterus, conjunctival injection, periorbital swelling ENT exam: Present: normal exam, mucous membranes moist Neck exam: Present: normal inspection. Absent: tenderness, meningismus, lymphadenopathy Respiratory exam: Present: normal lung sounds bilaterally. Absent: respiratory distress, wheezes, rales, rhonchi, stridor Cardiovascular Exam: Present: regular rate, normal rhythm, normal heart sounds. Absent: systolic murmur, diastolic murmur, rubs, gallop, clicks GI/Abdominal exam: Present: soft, normal bowel sounds. Absent: distended, tenderness, guarding, rebound, rigid Extremities exam: Present: normal inspection, full ROM, normal capillary refill. Absent: tenderness, pedal edema, joint swelling, calf tenderness Back exam: Present: normal inspection Neurological exam: Present: alert, oriented X3, CN II-XII intact Psychiatric exam: Present: depressed, homicidal ideation, suicidal ideation Skin exam: Present: warm, dry, intact, normal color. Absent: rash Course Vital Signs 07/15/24 07:27 Temperature 97.4 F L Pulse Rate 76 Respiratory 18 Rate Blood Pressure 110/73 O2 Sat by Pulse 97 Oximetry Medical Decision Making - Medical Decision Making Was pt. sent in by a medical professional or institution (, PA, MANAGER HOTEL, urgent care, hospital, or prison...) When possible be specific @ -No Did you speak to anyone other than the patient for history (EMS, parent, family, police, friend...)? What history was obtained from this source @ -No Did you review nursing and triage notes (agree or disagree)? Why? @ -I reviewed and agree with nursing and triage notes Were old charts reviewed (outside hosp., previous admission, EMS record, old EKG, old radiological studies, urgent care reports/EKG's, prison records)? Report findings @ -No old charts were reviewed Differential Diagnosis (chest pain, altered mental status, abdominal pain women, abdominal pain men, vaginal bleeding, weakness, fever, dyspnea, syncope, headache, dizziness, GI bleed, back pain, seizure, CVA, palpatations, mental health, musculoskeletal)? @ -Differential Mental Health Depression, anxiety, bipolar, psychosis, schizophrenia, borderline personality, situational depression, adjustment disorder, behavioral disorder, brain tumor, malingering, substance abuse, encephalopathy, medication reaction, dementia, hypothyroidism, degenerative neurologic disorder, lupus.... This is not meant to be all-inclusive list EKG interpreted by me (3pts min.). @ -Not done X-rays interpreted by me (1pt min.). @ -None done CT interpreted by me (1pt min.). @ -None done U/S interpreted by me (1pt. min.). @ -None done What testing was considered but not performed or refused? (CT, X-rays, U/S, labs)? Why? @ -None What meds were considered but not given or refused? Why? @ -None Did you discuss the management of the patient with other professionals (professionals i.e. , PA, MANAGER HOTEL, lab, RT, psych nurse, social work job titles, automatic dry starch operator, teacher, surveillance dual rate officer, complex case manager)? Give summary @ -Spoke with EPS who does evaluate the patient. Patient requires admission Was smoking cessation discussed for >3mins.? @ -No Was critical care preformed (if so, how long)? @ -No Were there social determinants of health that impacted care today? How? (Homelessness, low income, unemployed, alcoholism, drug addiction, transportation, low edu. Level, literacy, decrease access to med. care, shelter, rehab)? @ -No Was there de-escalation of care discussed even if they declined (Discuss DNR or withdrawal of care, Hospice)? DNR status @ -No What co-morbidities impacted this encounter? (DM, HTN, Smoking, COPD, CAD, Cancer, CVA, ARF, Chemo, Hep., AIDS, mental health diagnosis, sleep apnea, morbid obesity)? @ -Mood disorder, polysubstance abuse Was patient admitted / discharged? Hospital course, mention meds given and route, prescriptions, significant lab abnormalities, going to OR and other pertinent info. @ -Upon arrival patient seen and evaluated in bed 19. Thorough history and physical exam was performed. Patient is evaluated by EPS. Requires admission due to suicidal and homicidal ideations. Patient was agreeable to admission. He was taken up to the psychiatric floor in stable condition Undiagnosed new problem with uncertain prognosis? @ -No Drug Therapy requiring intensive monitoring for toxicity (Heparin, Nitro, Insulin, Cardizem)? @ -No Were any procedures done? @ -No Diagnosis/symptom? @ -Acute suicidal ideations, homicidal ideations Acute, or Chronic, or Acute on Chronic? @ -Acute on chronic Uncomplicated (without systemic symptoms) or Complicated (systemic symptoms)? @ -Complicated Side effects of treatment? @ -No Exacerbation, Progression, or Severe Exacerbation? @ -No Poses a threat to life or bodily function? How? (Chest pain, [place], [place], pneumonia, PE, COPD, DKA, ARF, appy, cholecystitis, CVA, Diverticulitis, Homicidal, Suicidal, threat to staff... and all critical care pts) @ -Yes as patient wants to actively harm himself - Lab Data Lab Results 07/15/24 Range/Units 12:49 SARS-CoV-2 (PCR) Not Detected (Not Detectd) Disposition Clinical Impression: Suicidal ideation, Depression Disposition: ADMITTED IP TO THIS HOSP Condition: Stable Is patient prescribed a controlled substance at d/c from ED?: No
[2024-07-15] MEDS ORDERED: MAG HYDROX/AL HYDROX/SIMETH 355 ML BOTTLE PO PRN (14:07)
[2024-07-15] MEDS ORDERED: MAGNESIUM HYDROXIDE 2,400 MG/30 ML CUP PO PRN (14:07)
[2024-07-15] MEDS ORDERED: IBUPROFEN 600 MG TAB PO PRN (14:07)
[2024-07-15] MEDS ORDERED: ALBUTEROL NEBULIZED 2.5 MG/3 ML INHALATION PRN (14:36)
[2024-07-15 17:21] LABS: Appearance,Urine Clear (Clear); Bilirubin,Urine Negative (Negative); Blood,Urine Negative (Negative); Color,Urine Colorless; Glucose,Urine (UA) Negative (Negative); Ketones,Urine Trace (Negative); Leukocyte Esterase,Urine Negative (Negative); Nitrite,Urine Negative (Negative); Protein,Urine Negative (Negative); Specific Gravity,Urine 1.011 (1.001-1.035); Urobilinogen,Urine <2.0 mg/dL (<2.0)
[2024-07-15 17:50] LABS: Amphetamine Screen,Urine Not Detected (NotDetected); Barbiturate Screen,Urine Not Detected (NotDetected); Benzodiazepines Screen,Urine Not Detected (NotDetected); Cocaine Screen,Urine Not Detected (NotDetected); Methadone Screen, Urine Not Detected (NotDetected); Opiate Screen,Urine Not Detected (NotDetected); Oxycodone Screen, Urine Detected (NotDetected); Phencyclidine Screen,Urine Not Detected (NotDetected); Tricyclic Antidepressant,Urine Not Detected (NotDetected); Urn Cannabinoid Scrn Detected (NotDetected)
[2024-07-15] MEDS: DOXYCYCLINE 100 MG CAP PO SCH (20:23)
[2024-07-15] MEDS: CYCLOBENZAPRINE 10 MG TAB PO PRN (20:23)
[2024-07-15] MEDS: ETODOLAC 400 MG TAB PO PRN (20:49)
[2024-07-16] MEDS: NICOTINE 14MG/24HR PATCH TRANSDERM SCH (09:58)
[2024-07-16] MEDS: ALBUTEROL INHALER 60 PUFF/8 GM INHALER (MHU) INHALATION PRN (10:07)
[2024-07-16] MEDS: DIVALPROEX 500 MG TABLET.DR PO SCH (11:27)
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
--- NOTE | 2024-07-16 17:36 | P.MDCNMH ---
History of Present Illness H&P Date: 07/16/24 History of Presenting Illness: Patient is a 38-year-old male with a past medical history of asthma, nicotine dependence, cannabis use disorder, reports of L4-L5 herniated disc, psychosis, depression, and history of previous cocaine use disorder. He is currently admitted to inpatient mental health unit under psychiatry team for treatment of mood disorder disorder. We were consulted for medical evaluation and completion of medical H&P during this admission. Patient seen and fully evaluated on mental health unit. He was ambulatory with a steady gait unassisted. Patient reports he is having uncontrolled back pain to lower back. Patient reports he was helping a friend moving last week and was seen at [facility] and diagnosed with a herniated L4 and L5. Patient reports prior to this admission he was taking Percocet for pain and since arrival on mental health unit his pain has been uncontrolled. Patient denies having any numbness/tingling/weakness in his extremities, he denies having any involuntary loss of bowel or bladder or experiencing any saddlebag anesthesias. Patient reports he would just like something to help him with pain because Flexeril is doing nothing. Patient denies having any other complaints including headache, lightheadedness, dizziness, chest pain, palpitations, shortness of breath, nausea, or vomiting. Review of systems: Pertinent positives and negatives as discussed in HPI, a complete review of systems was performed and all other systems are negative. Physical exam: Vital signs reviewed and stable. General: Nontoxic, no distress and appears stated age. Derm: Skin warm and dry, normal coloration for ethnicity. Head: Atraumatic, normocephalic and symmetric. Eyes: EOM's intact, no lid lag, and anicteric sclera Mouth: no lip lesions, mucus membranes moist Cardiovascular: regular rate and rhythm with normal S1S2, no murmur, positive posterior tibial pulses bilaterally, and cap refill < 2 seconds. Lungs: Respirations even, regular, and unlabored on room air. Lungs CTA bilaterally, no rhonchi, no rales, no wheezing, and no accessory muscle usage. Abdominal: soft, nontender to palpation, no guarding, no appreciable organomegaly Ext: ROM intact. No gross muscle atrophy, no edema, no contractures Neuro: Speech clear, face symmetrical and CN II-XII grossly intact with no noted focal neuro deficits Psych: Alert and oriented to person, place, time, and situation. Appropriate and pleasant affect. Assessment and Plan of Care: Uncontrolled lower back pain Reports of L4-L5 herniated disc -Discontinue Flexeril. Placed order for Zanaflex 4 mg every 6 hours as needed for muscle spasm/pain to lower back. -Patient to continue with Tylenol 650 mg every 4 hours as needed for mild pain, etodolac 400 mg 3 times daily as needed for moderate pain, and order placed for lidocaine patches 4% topical patch daily. -Patient states he has an appointment with his PCP in July for follow-up on this pain and to obtain a referral to an orthopedic/orthospine doctor and physical therapy. Asthma, mild persistent. -Not in acute exacerbation. Patient to continue with Ventolin inhaler 2 puffs every 6 hours as needed for shortness of breath and/or wheezing. Nicotine dependence -Recommend smoking cessation. Patient to continue with nicotine patch 14 mg daily. Cannabis use disorder -Recommend cessation of use, especially with history of psychosis. Cocaine use disorder -Patient reports he has been free from cocaine use for "a while". Recommend continued cessation of use. History of psychosis Depression Mood disorder -Management per primary admitting psychiatry team. Data reviewed: -Urinalysis negative for blood or infection. -Urine drug screen positive for oxycodone and marijuana. -COVID PCR negative. -Vital signs reviewed. Blood pressure 136/78 heart rate 66. Temp 97.4 and SpO2 of 95% on room air. Thank you for allowing us to participate in the care of this pleasant patient. Do not hesitate to contact us with questions. Someone can be reached from the [facility] hospitalist group all hours of the day at [phone] or via [employer]. Patient was seen independently by Nurse Practitioner. This document was prepared using [employer] dictation software. Please allow for errors in compensation programs manager while rare they do occur. Rickey Neff NP rendered care for this patient independently, reviewed the findings and plan as documented in the note above and agree with plan. I did not physically speak with or examine the patient on this date. Past Medical History Past Medical History: No Reported History Additional Past Medical History / Comment(s): Asthma History of Any Multi-Drug Resistant Organisms: None Reported Past Surgical History: No Surgical Hx Reported Past Anesthesia/Blood Transfusion Reactions: No Reported Reaction Smoking Status: Current every day smoker - Past Family History Mother Additional Family Medical History / Comment(s): Bipolar disorder, leukemia Medications and Allergies Home Medications Medication Instructions Recorded Confirmed Type Albuterol Inhaler [Ventolin Hfa 2 puff INHALATION RT-QID PRN 07/15/24 07/15/24 History Inhaler] Doxycycline Hyclate 100 mg PO BID 07/15/24 07/15/24 History Ketorolac [Toradol] 10 mg PO Q6HR PRN 07/15/24 07/15/24 History Orphenadrine Citrate [Orphenadrine 100 mg PO BID PRN 07/15/24 07/15/24 History Citrate ER] Allergies Allergy/AdvReac Type Severity Reaction Status Date / Time No Known Allergies Allergy Verified 07/15/24 09:34 Physical Exam Vitals: Vital Signs Pulse BP 07/16/24 06:58 66 136/78 Cranial Nerve Examination - Cranial Nerves Cranial Nerve II- Optic: Intact Cranial Nerve III- Oculomotor: Intact Cranial Nerve IV- Trochlear: Intact Cranial Nerve V- Trigeminal: Intact Cranial Nerve - Abducens: Intact Cranial Nerve VII- Facial: Intact Cranial Nerve VIII- Auditory: Intact Cranial Nerve IX- Glossopharyngeal: Intact Cranial Nerve X- Vagus: Intact Cranial Nerve XI- Accessory: Intact Cranial Nerve XII- Hypoglossal: Intact Results Labs: Abnormal Lab Results - Last 24 Hours (Table) 07/15/24 07/15/24 Range/Units 17:00 17:00 Urine Ketones Trace H (Negative) Ur Oxycodone Screen Detected H (NotDetected) U Marijuana (THC) Screen Detected H (NotDetected)
[2024-07-16] MEDS: LIDOCAINE 4% PATCH TOPICAL SCH (18:20)
[2024-07-17] MEDS: OLANZapine 5 MG TAB PO PRN (09:28)
[2024-07-17] MEDS: hydrOXYzine pamoate 25 MG CAP PO SCH (10:24)
--- NOTE | 2024-07-17 12:00 | P.PN ---
Progress Note - Text Progress Note Date: 07/17/24 Interval History: Patient was seen in group and was directable and agreeable to speak with personal lines underwriter in the office. Patient appears more calm and less irritable. He reports feeling as such and he states this is due to the Depakote. He reports having a breakthrough as he felt as though things were building up given his ongoing back pain, starting school this past Saturday and working. 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 He states he will contact his before school babysitter so that he can delay school a semester so that he can focus on building up his and calm. Patient notably signed AMA to be discharged by 07/21 at 8:19 AM. He reports moderate anxiety, rating this a 5/10 and states previously Vistaril was helpful for this. He states he has worked hard to maintain his sobriety given his previous cocaine use. Patient notably appeared restless during interview however he reports that this is due to severe back pain. At this time patient denies any suicidal or homicidal ideations, intent or plan. Patient denies any auditory, visual hallucinations and denies any paranoia or delusions. Patient denies any side effects from the medications and has been compliant with meds. Mental Status Exam: General Appearance: Patient appears to be stated age is alert, directable, and more cooperative. Behavior: Patient is slipped in his seat, moving about. Patient is tearful at times Speech: Patient's speech is fluent and nonpressured. Mood/Affect: Mood is improving mildly, affect is congruent and blunted. Suicidality/Homicidality: Patient denies having any suicidal or homicidal ideation intent or plan. Perceptions: Patient denies any visual hallucinations and denies any auditory hallucinations Though content/process: There is no evidence of any delusional thought content and thought process is linear and goal-directed. Memory and concentration: AOX3, grossly intact for the purposes of this session Judgment and insight: Improving mildly Assessment Unspecified mood disorder Anxiety, unspecified Cannabis use disorder Cocaine use disorder, in sustained remission Plan: -Patient continues to meet criteria for inpatient psychiatric admission for symptom stabilization and safety. Patient has signed adult voluntary form and medication consent and was placed in patient's chart. Patient signed AMA today at 8:19 AM -Medications: Continue Depakote 500 mg twice daily for mood stabilization and start Vistaril 25 mg twice daily for anxiety -When necessary Zyprexa as needed for agitation/aggression. -Labs: Reviewed, Depakote level ordered for Saturday - on board for discharge planning. Encouraged the patient to participate in milieu. Anticipate discharge home with friend on Saturday
--- NOTE | 2024-07-18 12:47 | P.PN ---
Progress Note - Text Progress Note Date: 07/18/24 Interval history: Patient was seen in the office and was directable and agreeable to speak with tech writer. He reported his biggest concern is ongoing back pain that made sleep difficult. He's frustrated about not receiving certain pain medications while admitted to the hospital. He does note his mental health is "a lot better" since coming to the hospital. He "came to get mood stabilized" and feels he's progressing positively. He does not have any concerns about his medication regimen or management of his symptoms. Denies feeling persistent sadness or depression at this time. At this time patient denies any suicidal or homicidal ideations intent or plan. Denies any auditory or visual hallucinations. Patient denies any side effects from the medications and has been compliant with meds. Mental status exam: General Appearance: Patient appears to be stated age is alert, directable, and cooperative. Behavior: No agitated behavior. Patient is calm and directable. No eye contact. Mild psychomotor agitation. Speech: Patient's speech is fluent and nonpressured. Mood/Affect: Mood is improving, feels "a lot better", affect is congruent and constricted. Suicidality/Homicidality: Patient denies having any suicidal or homicidal ideation intent or plan. Perceptions: Patient denies any auditory or visual hallucinations. Though content/process: There is no evidence of any delusional thought content and thought process is linear and goal-directed. Memory and concentration: AOX3, grossly intact for the purposes of this session Judgment and insight: Fair Assessment/Plan: Continue with current diagnoses: Unspecified mood disorder, unspecified anxiety disorder, cannabis use disorder, cocaine use disorder-in sustained remission Patient continues to meet criteria for inpatient psychiatric admission for symptom stabilization and safety. Patient will be maintained on current psychotropic medication regimen: Depakote 500 mg twice daily for mood stabilization and Vistaril 25 mg twice daily for anxiety Monitor for medication compliance and for any psychotropic medication side effects. Will continue to monitor ongoing response to treatment. Encouraged participation in milieu.
[2024-07-18] MEDS: hydrOXYzine pamoate 25 MG CAP PO STA (14:51)
[2024-07-18] MEDS: hydrOXYzine pamoate 25 MG CAP PO SCH (20:05)
[2024-07-18] MEDS: tiZANidine 4 MG TAB PO PRN (22:10)
[2024-07-19] MEDS: hydrOXYzine pamoate 25 MG CAP PO SCH (12:36)
[2024-07-19] MEDS: OLANZapine 10 MG VIAL IM PRN (13:04)
[2024-07-19] MEDS: HYDROcodone/APAP 10-325MG 1 EACH TAB PO STA (13:42)
--- NOTE | 2024-07-19 15:01 | P.PN ---
Progress Note - Text Interval history: Patient was seen at the bedside and was directable and agreeable to speak with technical proposal writer. He woke from a nap in briefly stated that his mood is "good". He expressed frustration about being woken up overnight and related his current level of tiredness to his disrupted sleep. Upon review of the chart this was an ongoing concern overnights and resulted in some agitation and frustration for him. At time of our morning visit he denied any suicidal or homicidal ideation intent or plan. He was not experiencing any auditory or visual hallucinations. He denied experiencing side effects from his medications and has been compliant with them. His biggest concern was ongoing back pain which has impacted his mood and made it difficult to rest. Later in the afternoon he into a verbal altercation with another patient and made threatening statements about wanting to fight the other patient. He was de-escalated and appropriately redirected by staff and did take a PRN without issue. Mental status exam: General Appearance: Patient appears to be stated age is alert, directable, and cooperative. Behavior: Patient is gruff but directable. No eye contact. Mild psychomotor agitation. Speech: Patient's speech is fluent and nonpressured. Somewhat faster than normal rate. Mood/Affect: Mood is "good", affect is irritable and incongruent. Suicidality/Homicidality: Patient denies having any suicidal or homicidal ideation intent or plan. Perceptions: Patient denies any auditory or visual hallucinations. Though content/process: There is no evidence of any delusional thought content and thought process is linear and goal-directed. Memory and concentration: AOX3, grossly intact for the purposes of this session Judgment and insight: Questionable Assessment/Plan: Continue with current diagnoses: Unspecified mood disorder, unspecified anxiety disorder, cannabis use disorder, cocaine use disorder-in sustained remission Patient continues to meet criteria for inpatient psychiatric admission for symptom stabilization and safety. Patient will be maintained on current psychotropic medication regimen: Depakote 500 mg twice daily for mood stabilization and Vistaril 50 mg TID for anxiety (this medication was increased subsequent to the need for an additional dose yesterday as 25 mg dose was not adequately effective per patient). Mood and anxiety symptoms are exacerbated by back pain. Monitor for medication compliance and for any psychotropic medication side effects. Will continue to monitor ongoing response to treatment. Encouraged participation in milieu.
[2024-07-19] MEDS: ACETAMINOPHEN TAB 325 MG TAB PO PRN (15:55)
[2024-07-19] MEDS ORDERED: NICOTINE GUM (POLACRILEX) 2 MG GUM BUCCAL PRN (16:05)
[2024-07-20 09:09] VITALS: BP 130/76; PULSE 110; RESP 16; TEMP 98.6
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
== END 2024-07-20 14:20 | disposition home or self-care (01) | DRG 753 ==
LOC: EC 07:18 → 3MHU 13:51
PROVIDERS: ADMIT Psychiatry & Neurology Psychiatry; ATTEND Psychiatry & Neurology Psychiatry
DX: F31.9 Bipolar disorder, unspecified (principal); F43.10 Post-traumatic stress disorder, unspecified; F41.9 Anxiety disorder, unspecified; G89.29 Other chronic pain; M51.26 Other intervertebral disc displacement, lumbar region; J45.20 Mild intermittent asthma, uncomplicated; R45.1 Restlessness and agitation; F14.11 Cocaine abuse, in remission; F12.10 Cannabis abuse, uncomplicated; R45.850 Homicidal ideations; R45.851 Suicidal ideations; Z56.0 Unemployment, unspecified; Z71.51 Drug abuse counseling and surveillance of drug abuser; Z59.01 Sheltered homelessness; Z79.899 Other long term (current) drug therapy; Z11.52 Encounter for screening for COVID-19; Z91.51 Personal history of suicidal behavior
CPT/HCPCS: 80164; 80306; 81003; 87635; 96372; 99285

== ENCOUNTER 2024-09-07 10:07 | Emergency (ER) | payer OTHER ==
--- NOTE | 2024-09-07 11:21 | ED ---
General Adult HPI - General Stated complaint: suicidal, med reaction Time Seen by Provider: 09/07/24 10:33 Source: patient, RN notes reviewed Mode of arrival: ambulatory Limitations: no limitations - History of Present Illness Initial comments: 38-year-old male presents emergency department with chief complaint of depression he states he feels like he is having medication reaction. Patient states has been intermittently having suicidal thoughts but not currently suicidal. Denies any self-harm. - Related Data Home Medications Medication Instructions Recorded Confirmed Albuterol Inhaler [Ventolin Hfa 2 puff INHALATION RT-QID PRN 07/15/24 07/15/24 Inhaler] Doxycycline Hyclate 100 mg PO BID 07/15/24 07/15/24 Previous Rx's Medication Instructions Recorded Divalproex [Depakote] 500 mg PO BID 30 Days #60 tab 07/20/24 Nicotine 14Mg/24Hr Patch [Habitrol] 1 patch TRANSDERM DAILY patch 07/20/24 hydrOXYzine pamoate [Vistaril] 50 mg PO TID 30 Days #180 cap 07/20/24 Allergies Allergy/AdvReac Type Severity Reaction Status Date / Time No Known Allergies Allergy Verified 07/15/24 09:34 Review of Systems ROS Statement: Those systems with pertinent positive or pertinent negative responses have been documented in the HPI. ROS Other: All systems not noted in ROS Statement are negative. Past Medical History Past Medical History: No Reported History Additional Past Medical History / Comment(s): Asthma History of Any Multi-Drug Resistant Organisms: None Reported Past Surgical History: No Surgical Hx Reported Past Anesthesia/Blood Transfusion Reactions: No Reported Reaction Past Psychological History: Bipolar, PTSD, Schizoaffective Disorder Smoking Status: Current every day smoker Past Alcohol Use History: Occasional Past Drug Use History: Cocaine, Marijuana - Past Family History Mother Additional Family Medical History / Comment(s): Bipolar disorder, leukemia General Exam - General Exam Comments Initial Comments: Visual Physical Exam Vital signs reviewed General: Well-appearing, nontoxic, no acute distress. Head: Normocephalic, atraumatic Eyes: PERRLA, EOMI ENT: Airway patent Chest: Nonlabored breathing Skin: No visual rash, normal skin tone Neuro: Alert and oriented 3 Musculoskeletal: No gross abnormalities Medical Decision Making - Medical Decision Making I completed the quick note portion of this chart signed Jace Espinosa PA-C Patient eloped from the waiting room Disposition Clinical Impression: Depression Disposition: LEFT AGAINST MEDICAL ADVICE Referrals: None,Stated [Primary Care Provider] - 1-2 days Time of Disposition: 11:20
== END 2024-09-07 10:45 | disposition left against medical advice (07) ==
LOC: EC 10:07
DX: F32.A Depression, unspecified (principal); F17.200 Nicotine dependence, unspecified, uncomplicated; Z53.29 Procedure and treatment not carried out because of patient's decision for other reasons
CPT/HCPCS: 99284

== ENCOUNTER 2024-09-09 16:05 | Inpatient (IN) | payer MEDICAID, OTHER ==
--- NOTE | 2024-09-09 17:21 | ED ---
General Adult HPI - General Chief complaint: Psychiatric Symptoms Stated complaint: mental health Time Seen by Provider: 09/09/24 17:10 Source: patient, RN notes reviewed, old records reviewed Mode of arrival: ambulatory Limitations: no limitations - History of Present Illness Initial comments: Patient is a 38-year-old male with known history of psychiatric illness who presents emergency department for what he states are manic-like symptoms with suicidal ideations. States he is hearing voices that are telling him to kill himself and are telling him he is not a good person. Denies any drug use. Denies any visual hallucinations. Denies any homicidal ideations, attempts, plans. Denies any recent suicide attempts. Does have a remote history of trying to cut his wrist. Has no significant past medical history other than asthma. Denies any chest pain, cough, congestion. Denies any abdominal pain, nausea, vomiting. Presents for psychiatric evaluation. Brought himself to the ER for evaluation. - Related Data Home Medications Medication Instructions Recorded Confirmed Albuterol Inhaler [Ventolin Hfa 2 puff INHALATION RT-Q4H PRN 07/15/24 09/09/24 Inhaler] Azithromycin [Zithromax] 500 mg PO DAILY 09/09/24 09/09/24 Ferron Carbonate 600 mg PO HS 09/09/24 09/09/24 methylPREDNISolone [Medrol Dose See Taper PO DIRECTED 09/09/24 09/09/24 Pack] Allergies Allergy/AdvReac Type Severity Reaction Status Date / Time No Known Allergies Allergy Verified 09/09/24 17:50 Review of Systems ROS Statement: Those systems with pertinent positive or pertinent negative responses have been documented in the HPI. Review of Systems: CONST: Denies fever EYES: Denies blurry vision ENT: Denies nasal congestion C/V: Denies Chest pain RESP: Denies shortness of breath GI: Denies abdominal pain : Denies dysuria SKIN: Denies rash. MSK: Denies joint pain. NEURO: Denies headache ROS Other: All systems not noted in ROS Statement are negative. Past Medical History Past Medical History: No Reported History Additional Past Medical History / Comment(s): Asthma History of Any Multi-Drug Resistant Organisms: None Reported Past Surgical History: No Surgical Hx Reported Past Anesthesia/Blood Transfusion Reactions: No Reported Reaction Past Psychological History: Bipolar, PTSD, Schizoaffective Disorder Smoking Status: Current every day smoker Past Alcohol Use History: Occasional Past Drug Use History: Cocaine, Marijuana - Past Family History Mother Additional Family Medical History / Comment(s): Bipolar disorder, leukemia General Exam - General Exam Comments Initial Comments: General: Appears in no acute distress. HEAD: Normal with no signs of head trauma. EYES: EOMI. ENT: Hearing grossly intact. RESPIRATORY: No respiratory distress. No wheezing. No respiratory distress. No hypoxia. C/V: Regular rate and rhythm. S1 and S2 auscultated. ABD: Abdomen is nondistended. EXT: No obvious deformity. SKIN: No rashes or lesions observed on exposed skin. NEURO: Alert and oriented. Limitations: no limitations Course Vital Signs 09/09/24 16:15 Temperature 97.6 F Pulse Rate 100 Respiratory 18 Rate Blood Pressure 132/81 O2 Sat by Pulse 98 Oximetry Medical Decision Making - Medical Decision Making Was pt. sent in by a medical professional or institution (, PA, FERMENTATION ENGINEER, urgent care, hospital, or fpc...) When possible be specific @ -No Did you speak to anyone other than the patient for history (EMS, parent, family, police, friend...)? What history was obtained from this source @ -No Did you review nursing and triage notes (agree or disagree)? Why? @ -I reviewed and agree with nursing and triage notes Were old charts reviewed (outside hosp., previous admission, EMS record, old EKG, old radiological studies, urgent care reports/EKG's, fpc records)? Report findings @ -Old charts reviewed showing that patient was here for mental health evaluation 2 days ago and discharged home. Patient is a history of mental health disease and frequent evaluations for it at our department. Differential Diagnosis (chest pain, altered mental status, abdominal pain women, abdominal pain men, vaginal bleeding, weakness, fever, dyspnea, syncope, headache, dizziness, GI bleed, back pain, seizure, CVA, palpatations, mental health, musculoskeletal)? @ -Differential Mental Health Depression, anxiety, bipolar, psychosis, schizophrenia, borderline personality, situational depression, adjustment disorder, behavioral disorder, brain tumor, malingering, substance abuse, encephalopathy, medication reaction, dementia, hypothyroidism, degenerative neurologic disorder, lupus.... This is not meant to be all-inclusive list EKG interpreted by me (3pts min.). @ -None done X-rays interpreted by me (1pt min.). @ -None done CT interpreted by me (1pt min.). @ -None done U/S interpreted by me (1pt. min.). @ -None done What testing was considered but not performed or refused? (CT, X-rays, U/S, labs)? Why? @ -None What meds were considered but not given or refused? Why? @ -None Did you discuss the management of the patient with other professionals (professionals i.e. , PA, FERMENTATION ENGINEER, lab, RT, psych nurse, forensic social worker, manager telemarketing, teacher, cra officer, supervisor case loading)? Give summary @ -EPS notified of the consult Was smoking cessation discussed for >3mins.? @ -No Was critical care preformed (if so, how long)? @ -No Were there social determinants of health that impacted care today? How? ( Homelessness, low income, unemployed, alcoholism, drug addiction, transportation, low edu. Level, literacy, decrease access to med. care, residential, rehab)? @ -No Was there de-escalation of care discussed even if they declined (Discuss DNR or withdrawal of care, Hospice)? DNR status @ -No What co-morbidities impacted this encounter? (DM, HTN, Smoking, COPD, CAD, Cancer, CVA, ARF, Chemo, Hep., AIDS, mental health diagnosis, sleep apnea, morbid obesity)? @ -Psychiatric illness Was patient admitted / discharged? Hospital course, mention meds given and route, prescriptions, significant lab abnormalities, going to OR and other pertinent info. @ -Patient presents emergency department complaining of suicidal ideations as well as auditory hallucinations. BAT is 0. UDS is pending. Vitals are within acceptable limits. At this time, patient is medically cleared for evaluation by psychiatry. Disposition pending psychiatric evaluation. Suicide precautions ordered. Sitter ordered. Patient was in agreement this plan. EPS notified of the consult. EPS Abigail evaluate the patient and patient became agitated and aggressive towards staff members. Patient did consent to IM injections of Haldol and Ativan. Patient's agitation was resolved. Patient will be admitted to inpatient psychiatry as he does meet inpatient criteria. Clinical certificate completed by myself. Undiagnosed new problem with uncertain prognosis? @ -No Drug Therapy requiring intensive monitoring for toxicity (Heparin, Nitro, Insulin, Cardizem)? @ -No Were any procedures done? @ -No Diagnosis/symptom? @ -Psychosis, suicidal ideations Acute, or Chronic, or Acute on Chronic? @ -Acute Uncomplicated (without systemic symptoms) or Complicated (systemic symptoms)? @ -Complicated Side effects of treatment? @ -None Exacerbation, Progression, or Severe Exacerbation] @ -No Poses a threat to life or bodily function? @ -Potentially, yes - Lab Data Lab Results 09/09/24 09/09/24 Range/Units 17:10 18:09 Urine Opiates Screen Not Detected (NotDetected) Ur Oxycodone Screen Not Detected (NotDetected) Urine Methadone Screen Not Detected (NotDetected) Ur Barbiturates Screen Not Detected (NotDetected) U Tricyclic Antidepress Not Detected (NotDetected) Ur Phencyclidine Scrn Not Detected (NotDetected) Ur Amphetamines Screen Not Detected (NotDetected) U Methamphetamines Scrn Not Detected (NotDetected) U Benzodiazepines Scrn Not Detected (NotDetected) Urine Cocaine Screen Not Detected (NotDetected) U Marijuana (THC) Screen Detected H (NotDetected) SARS-CoV-2 (PCR) Not Detected (Not Detectd) Disposition Clinical Impression: Suicidal ideations, Psychosis Disposition: TRANSFER TO PSYCH HOSP/UNIT Condition: Stable Time of Disposition: 21:41
[2024-09-09 17:34] LABS: Amphetamine Screen,Urine Not Detected (NotDetected); Barbiturate Screen,Urine Not Detected (NotDetected); Benzodiazepines Screen,Urine Not Detected (NotDetected); Cocaine Screen,Urine Not Detected (NotDetected); Methadone Screen, Urine Not Detected (NotDetected); Opiate Screen,Urine Not Detected (NotDetected); Oxycodone Screen, Urine Not Detected (NotDetected); Phencyclidine Screen,Urine Not Detected (NotDetected); Tricyclic Antidepressant,Urine Not Detected (NotDetected); Urn Cannabinoid Scrn Detected (NotDetected)
[2024-09-09] MEDS: LORazepam 2 MG/ML INJ IM STA (18:05)
[2024-09-09] MEDS: HALOPERIDOL LACTATE 5 MG/ML 1 ML VIAL IM STA (18:05)
[2024-09-09] MEDS ORDERED: MAG HYDROX/AL HYDROX/SIMETH 355 ML BOTTLE PO PRN (20:08)
[2024-09-09] MEDS ORDERED: LORazepam 2 MG/ML INJ IM PRN (20:08)
[2024-09-09] MEDS ORDERED: HALOPERIDOL LACTATE 5 MG/ML 1 ML VIAL IM PRN (20:08)
[2024-09-09] MEDS ORDERED: MAGNESIUM HYDROXIDE 2,400 MG/30 ML CUP PO PRN (20:08)
[2024-09-09] MEDS: NICOTINE 14MG/24HR PATCH TRANSDERM SCH (21:56)
[2024-09-10] MEDS: ALBUTEROL INHALER 60 PUFF/8 GM INHALER (MHU) INHALATION PRN (03:34)
[2024-09-10] MEDS: ACETAMINOPHEN TAB 325 MG TAB PO PRN (03:34)
[2024-09-10 03:35] LABS: Appearance,Urine Clear (Clear); Bilirubin,Urine Negative (Negative); Blood,Urine Negative (Negative); Color,Urine Colorless; Glucose,Urine (UA) Negative (Negative); Ketones,Urine Negative (Negative); Leukocyte Esterase,Urine Negative (Negative); Nitrite,Urine Negative (Negative); PH, Urine 5.5 (5.0-8.0); Protein,Urine Negative (Negative); Specific Gravity,Urine 1.005 (1.001-1.035); Urobilinogen,Urine <2.0 mg/dL (<2.0)
[2024-09-10 11:26] LABS: Basophils # (A) 0.1 k/uL (0-0.2); Basophils % (A) 1 %; Eosinophils # (A) 0.3 k/uL (0-0.7); Eosinophils % (A) 3 %; HCT 43.7 % (39.0-53.0); HGB 14.6 gm/dL (13.0-17.5); Lymphocytes # (A) 1.4 k/uL (1.0-4.8); Lymphocytes % (A) 14 %; MCH 30.7 pg (25.0-35.0); MCHC 33.3 g/dL (31.0-37.0); MCV 92.2 fL (80.0-100.0); Mean Platelet Volume 6.7; Monocytes # (A) 0.7 k/uL (0-1.0); Monocytes % (A) 7 %; Neutrophils # (A) 7.2 k/uL (1.3-7.7); Neutrophils % (A) 73 %; Platelet Count 308 k/uL (150-450); RBC 4.74 m/uL (4.30-5.90); RDW 13.7 % (11.5-15.5); WBC 9.8 k/uL (3.8-10.6)
[2024-09-10 11:59] LABS: ALT 28 U/L (4-49); AST 23 U/L (17-59); African American GFR (CKD) >90 (>60 ml/min/1.73 sqM); Albumin 4.5 g/dL (3.5-5.0); Alkaline Phosphatase 68 U/L (38-126); Anion Gap 10 mmol/L; Bilirubin,Unconjugated 0.8 mg/dL (0.0-1.1); Blood Urea Nitrogen 22 mg/dL (9-20); Calcium 10.2 mg/dL (8.4-10.2); Carbon Dioxide 28 mmol/L (22-30); Chloride 101 mmol/L (98-107); Glucose 108 mg/dL (74-99); Non-African American GFR(CKD) >90 (>60 ml/min/1.73 sqM); Potassium 4.5 mmol/L (3.5-5.1); Sodium 139 mmol/L (137-145); Total Bilirubin 0.8 mg/dL (0.2-1.3); Total Protein 7.4 g/dL (6.3-8.2)
--- NOTE | 2024-09-10 12:08 | P.HP ---
Psychiatric H&P - . H&P Date: 09/10/24 History & Physical: Allergies Allergy/AdvReac Type Severity Reaction Status Date / Time No Known Allergies Allergy Verified 09/09/24 17:50 Vital Signs Temp 98.0 F 09/09/24 21:04 Pulse 68 09/10/24 06:32 Resp 16 09/09/24 21:04 BP 124/79 09/10/24 06:32 Pulse Ox 98 09/09/24 21:04 FiO2 Intake & Output 09/09/24 09/10/24 09/10/24 18:59 06:59 18:59 Weight 104.326 kg 99.932 kg Laboratory Last Values WBC 9.8 k/uL (3.8-10.6) 09/10/24 10:28 RBC 4.74 m/uL (4.30-5.90) 09/10/24 10:28 Hgb 14.6 gm/dL (13.0-17.5) 09/10/24 10:28 Hct 43.7 % (39.0-53.0) 09/10/24 10:28 MCV 92.2 fL (80.0-100.0) 09/10/24 10:28 MCH 30.7 pg (25.0-35.0) 09/10/24 10:28 MCHC 33.3 g/dL (31.0-37.0) 09/10/24 10:28 RDW 13.7 % (11.5-15.5) 09/10/24 10:28 Plt Count 308 k/uL (150-450) 09/10/24 10:28 MPV 6.7 09/10/24 10:28 Neutrophils % 73 % 09/10/24 10:28 Lymphocytes % 14 % 09/10/24 10:28 Monocytes % 7 % 09/10/24 10:28 Eosinophils % 3 % 09/10/24 10:28 Basophils % 1 % 09/10/24 10:28 Neutrophils # 7.2 k/uL (1.3-7.7) 09/10/24 10:28 Lymphocytes # 1.4 k/uL (1.0-4.8) 09/10/24 10:28 Monocytes # 0.7 k/uL (0-1.0) 09/10/24 10:28 Eosinophils # 0.3 k/uL (0-0.7) 09/10/24 10:28 Basophils # 0.1 k/uL (0-0.2) 09/10/24 10:28 Urine Color Colorless 09/09/24 17:10 Urine Appearance Clear (Clear) 09/09/24 17:10 Urine pH 5.5 (5.0-8.0) 09/09/24 17:10 Ur Specific [place] 1.005 (1.001-1.035) 09/09/24 17:10 Urine Protein Negative (Negative) 09/09/24 17:10 Urine Glucose (UA) Negative (Negative) 09/09/24 17:10 Urine Ketones Negative (Negative) 09/09/24 17:10 Urine Blood Negative (Negative) 09/09/24 17:10 Urine Nitrite Negative (Negative) 09/09/24 17:10 Urine Bilirubin Negative (Negative) 09/09/24 17:10 Urine Urobilinogen <2.0 mg/dL (<2.0) 09/09/24 17:10 Ur Leukocyte Esterase Negative (Negative) 09/09/24 17:10 Urine Opiates Screen Not Detected (NotDetected) 09/09/24 17:10 Ur Oxycodone Screen Not Detected (NotDetected) 09/09/24 17:10 Urine Methadone Screen Not Detected (NotDetected) 09/09/24 17:10 Ur Barbiturates Screen Not Detected (NotDetected) 09/09/24 17:10 U Tricyclic Antidepress Not Detected (NotDetected) 09/09/24 17:10 Ur Phencyclidine Scrn Not Detected (NotDetected) 09/09/24 17:10 Ur Amphetamines Screen Not Detected (NotDetected) 09/09/24 17:10 U Methamphetamines Scrn Not Detected (NotDetected) 09/09/24 17:10 U Benzodiazepines Scrn Not Detected (NotDetected) 09/09/24 17:10 Urine Cocaine Screen Not Detected (NotDetected) 09/09/24 17:10 U Marijuana (THC) Screen Detected (NotDetected) H 09/09/24 17:10 SARS-CoV-2 (PCR) Not Detected (Not Detectd) 09/09/24 18:09 09/10/24 11:59 IDENTIFYING DATA: Patient is a 38-year-old male, currently homeless, unemployed CHIEF COMPLAINT: SI, AH agitation HPI: Patient presented to the hospital with reportedly manic like symptoms and suicidal ideations. EPS note states, "Upon assessment pt is agreeable to speak with RN. Pt was cooperative initally with answering questions. Pt gave a back ground that he is homeless and has no where to go. He is unable to return to [facility] but would not disclose why. He states he has not friends or family to stay with and no source of income. He attempted to go to [facility] today but they declined because they wanted records from [facility] per pt. Pt appears unkempt and disheleved. RN was speaking with pt about options and provided assistance, at this point pt began to pace and become agitated. RN tried to redirect pt to have a seat and talk with RN. He become more agitated and threw and smashed his water. He began to yell at RN and say, "how are you sitting there so calmly like you can help me, do you just want me to cut my throat or wrists in front of you"? Pt was escalating and RN went in the franco to get his RN for medications. Pt then began to punch the monae and grabbed the sheet and put it around his neck. He then put it over the door and tried to shut the door. Security and other staff were present and removed all items from the room. Pt was agreeable to IM medications and restraints were not used. Pt was recently discharged from two facilities and still has not followed up with [facility]. He is now closed to services. Pt is not compliant with treatment and stopped taking his medications. 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 He is currently on an inhaler and zpak. Pt was not cooperative with whole assessment and unwilling to communicate with this RN. Pt was petitioned as he is impulsive and a risk to self and others." Patient seen and evaluated on the unit and was agreeable with speaking to appeals writer in office. He was notably irritable, expressing that he has been telling several staff members the same thing. He states feeling "tired" and reported difficulties with sleep. He mention his ribs are sore however would not elaborate on the reasons behind this. He did receive as needed Tylenol for this earlier. He states since being discharged in the hospital things have been "not great" due to homelessness. He is no longer on Depakote and states he is now on lithium 600 mg and and wishes to stay on this medication. He reports yesterday experiencing suicidal ideations and auditory hallucinations however patient denies any suicidal or homicidal ideations intent or plan at this time. At this time patient denies any auditory or visual h allucinations. Patient denies any flight of ideas racing thoughts and increased in goal directed behavior. UDS was positive for cannabis only. Awaiting records from [facility] as he was recently discharged from them roughly 1 month ago. PAST PSYCHIATRIC HISTORY: Patient has a history of unspecified mood disorder, anxiety, cannabis use disorder, cocaine use disorder. Patient states being on l ithium 600 mg. Patient was recently at [facility] 1 month ago and was at this facility June 2024. Patient denies any psychiatric outpatient follow-up. Patient denies any history of suicide attempts in the past. PMH: as per ER note ALLERGIES: as per EMR SUBSTANCE USE HISTORY: Patient uses cannabis however no longer uses cocaine FAMILY PSYCHIATRIC/SUBSTANCE USE HISTORY: Denies SOCIAL HISTORY: Patient is currently homeless, unemployed. He has no children. MENTAL STATUS EXAM: General Appearance: Patient appears to be stated age is alert, and somewhat cooperative. Patient appears to have fair hygiene and grooming. Behavior: Patient is seated without any agitated behavior. He is somewhat irritable Speech: Patient's speech is fluent and nonpressured. Mood/Affect: Patient reports their mood is depressed, affect is congruent and constricted. Suicidality/Homicidality: Patient denies having any homicidal ideation intent or plan. Denies any suicidal ideations intent or plan Perceptions: Patient denies any visual hallucinations and denies any auditory hallucinations Though content/process: There is no evidence of any delusional thought content and thought process is linear and logical. Memory and concentration: AOX3, grossly intact for the purposes of this session. Can spell "WORLD" backwards Judgment and insight: Poor STRENGTHS/WEAKNESSES: strength is that patient is resilient. Weakness is that patient has poor judgment, is homeless and is impulsive INTELLECT: Average IMPRESSIONS: Unspecified mood disorder Cannabis use disorder Cocaine use disorder in sustained remission PLAN: -Patient is admitted under voluntary status to MHU for stabilization of psychiatric symptoms and safety. Patient has signed adult voluntary form and medication consent and is placed in patient's chart. -Medications : Patient agreeable with continuing lithium 600 mg at bedtime for mood stabilization, start Remeron 7.5 mg at bedtime for mood/sleep -Ativan and Haldol PRN for agitation/aggression -Patient was counselled on substance abuse and desired to cut back on use-Will offer patient subtance use rehab -Patient was informed of the risks, benefits and side effects of the medication and patient verbally consented to taking the medications. Patient signed med consent form and was placed in chart. -Internal Medicine consult to perform medical evaluation and physical. -NRT -not needed as patient does not smoke -SW on board for discharge planning. Encourage patient to participate in groups to work on coping skills.
[2024-09-10] MEDS: IBUPROFEN 600 MG TAB PO PRN (12:34)
[2024-09-10] MEDS: NICOTINE GUM (POLACRILEX) 2 MG GUM BUCCAL PRN (17:29)
[2024-09-10 19:22] LABS: Chol/HDL Ratio 4.18 Ratio; LDL Cholesterol,Calculated 137.3 mg/dL (0.0-131.0)
[2024-09-10] MEDS: MIRTAZAPINE 15 MG TAB PO SCH (21:49)
[2024-09-10] MEDS: LITHIUM CARBONATE 300 MG CAP PO SCH (21:50)
--- NOTE | 2024-09-11 06:10 | P.PN ---
Progress Note - Text Progress Note Date: 09/11/24 Attempted to see the patient in the MHU. The patient refused to be seen or be evaluated.
[2024-09-11] MEDS: LORazepam 1 MG TAB PO PRN (12:41)
--- NOTE | 2024-09-11 13:13 | P.PN ---
Progress Note - Text Progress Note Date: 09/11/24 Interval History: Patient was seen wandering the hallways and was directable and agreeable to sp faheem with account underwriter in the office. He reports feeling "not good" directly related to ongoing pain. He request to speak to the medical doctor as he was asleep when he came by overnight. He was encouraged to take as needed Tylenol and Motrin as these are ordered for pain. He reports poor sleep, described as issues falling asleep and waking up intermittently. Discharge planning was discussed with the patient as he is homeless and he was encouraged to call access in order to possibly get into rehab and then transition to a three- quarter house from there. At this time patient denies any suicidal or homicidal ideations, intent or plan. Patient denies any auditory, visual hallucinations and denies any paranoia or delusions. Patient denies any side effects from the medications and has been compliant with meds. Mental Status Exam: General Appearance: Patient appears to be stated age is alert, directable, and cooperative. Behavior: Patient is calmly seated without any agitated behavior. Less irritable than yesterday Speech: Patient's speech is fluent and nonpressured. Mood/Affect: Mood is improving mildly, affect is congruent and constricted. Suicidality/Homicidality: Patient denies having any suicidal or homicidal ideation intent or plan. Perceptions: Patient denies any visual hallucinations and denies any auditory hallucinations Though content/process: There is no evidence of any delusional thought content and thought process is linear and logical. Memory and concentration: AOX3, grossly intact for the purposes of this session Judgment and insight: Improving mildly Assessment Unspecified mood disorder Cannabis use disorder Cocaine use disorder, in sustained remission Plan: -Patient continues to meet criteria for inpatient psychiatric admission for symptom stabilization and safety. Patient has signed adult voluntary form and medication consent and was placed in patient's chart. -Medications: Continue lithium 600 mg at bedtime for mood stabilization, Remeron 7.5 mg at bedtime for mood/sleep, start melatonin 10 mg at bedtime for sleep -When necessary Ativan and Haldol for agitation/aggression. -Labs: TSH, creatinine within normal limits -SW on board for discharge planning. Encouraged the patient to participate in milieu. Anticipate [facility] to [facility] versus rehab
[2024-09-11] MEDS: MELATONIN 5 MG TABLET PO SCH (20:28)
--- NOTE | 2024-09-12 08:53 | P.PN ---
Subjective Progress Note Date: 09/12/24 Principal diagnosis: bipolar 1 manic Patient was seen wandering the hallways and was directable and agreeable to speak with fiction and nonfiction prose writer in the office. He reports that he is feeling better today and things are going well he says he has done well on lithium in the past at about 1000 mg is currently on 600.. At this time patient denies any suicidal or homicidal ideations, intent or plan. Patient denies any auditory, visual hallucinations and denies any paranoia or delusions. Patient denies any side effects from the medications and has been compliant with meds. Mental Status Exam:cooperative and pleasant General Appearance: Patient appears to be stated age is alert, directable, and cooperative. Behavior: Patient is calmly seated without any agitated behavior. Less irrit able than yesterday Speech: Patient's speech is fluent and nonpressured. Mood/Affect: Mood is improving mildly, affect is congruent and constricted. Suicidality/Homicidality: Patient denies having any suicidal or homicidal ideation intent or plan. Perceptions: Patient denies any visual hallucinations and denies any auditory hallucinations Though content/process: There is no evidence of any delusional thought content and thought process is linear and logical. Memory and concentration: AOX3, grossly intact for the purposes of this session Judgment and insight: Improving mildly Assessment: illness seems to be responding well Unspecified mood disorderprobable bipolar 1 Cannabis use disorder Cocaine use disorder, in sustained remission Plan:he is on 600 of lithium ongoing level this morning and increase it if the levels are not too high pry given 600 twice a day -Patient continues to meet criteria for inpatient psychiatric admission for symptom stabilization and safety. Patient has signed adult voluntary form and medication consent and was placed in patient's chart. -Medications: Continue lithium 600 mg at bedtime for mood stabilization, Remeron 7.5 mg at bedtime for mood/sleep, start melatonin 10 mg at bedtime for sleep -When necessary Ativan and Haldol for agitation/aggression. -Labs: TSH, creatinine within normal limits -SW on board for discharge planning. Encouraged the patient to participate in milieu. Anticipate discharge next week to intermediate versus rehab Objective - Vital Signs Vital signs: Vital Signs Temp 98.0 F 09/09/24 21:04 Pulse 68 09/10/24 06:32 Resp 16 09/09/24 21:04 BP 124/79 09/10/24 06:32 Pulse Ox 98 09/09/24 21:04 FiO2 - Labs CBC & Chem 7: 09/10/24 10:28 09/10/24 10:28
[2024-09-12] MEDS: haloperidoL 5 MG TAB PO PRN (17:16)
--- NOTE | 2024-09-13 08:40 | P.PN ---
Subjective Progress Note Date: 09/13/24 Principal diagnosis: bipolar 1 manic Patient was directable and agreeable to speak with financial writer in the office. He reports that he is feeling better today and things are going well he says he has done well on lithium in the past at about 1000 mg is currently on 600.. He says that he had a wonderful sleep with no nightmares. He did get up once to urinate. At this time patient denies any suicidal or homicidal ideations, intent or plan. Patient denies any auditory, visual hallucinations and denies any paranoia or delusions. Patient denies any side effects from the medications and has been compliant with meds. Mental Status Exam:cooperative and pleasant General Appearance: Patient appears to be stated age is alert, directable, and cooperative. Behavior: Patient is calmly seated without any agitated behavior. Less irritable than yesterday Speech: Patient's speech is fluent and nonpressured. Content is slightly rambling. Mood/Affect: Mood is improving mildly, affect is congruent and constricted. Suicidality/Homicidality: Patient denies having any suicidal or homicidal ideation intent or plan. Perceptions: Patient denies any visual hallucinations and denies any auditory hallucinations Though content/process: There is no evidence of any delusional thought content and thought process is linear and logical. Memory and concentration: AOX3, grossly intact for the purposes of this session Judgment and insight: Improving mildly His LIthium level was O.4 and he has taken 100mg in the past with benifit Assessment: illness seems to be responding well Unspecified mood disorder (probable bipolar 1) Cannabis use disorder Cocaine use disorder, in sustained remission Plan:Increase lithium to 1000mg qhs -Patient continues to meet criteria for inpatient psychiatric admission for symptom stabilization and safety. Patient has signed adult voluntary form and me dication consent and was placed in patient's chart. -Medications: Increase [place] to mg at bedtime for mood stabilization, Remeron 7.5 mg at bedtime for mood/sleep, start melatonin 10 mg at bedtime for sleep -When necessary Ativan and Haldol for agitation/aggression. -Labs: TSH, creatinine within normal limits -SW on board for discharge planning. Encouraged the patient to participate in milieu. Anticipate discharge next week to retirement versus rehab Objective - Vital Signs Vital signs: Vital Signs Temp 98.0 F 09/09/24 21:04 Pulse 125 H 09/12/24 12:30 Resp 16 09/09/24 21:04 BP 109/77 09/12/24 12:30 Pulse Ox 98 09/09/24 21:04 FiO2 - Labs CBC & Chem 7: 09/10/24 10:28 09/10/24 10:28
[2024-09-13] MEDS: LITHIUM CARBONATE 150 MG CAP PO SCH (20:51)
[2024-09-13] MEDS: LITHIUM CARBONATE ER 450 MG TABLET.ER PO SCH (20:51)
[2024-09-14 08:48] VITALS: RESP 18; TEMP 97
--- NOTE | 2024-09-14 13:29 | P.PN ---
Progress Note - Text Progress Note Date: 09/14/24 Interval History: Patient was seen in bed and was directable and agreeable to speak with health underwriter in the room. Patient displayed mood swings, being antagonistic at first but then jovial later. He states sleeping great and that he is tolerating the medications well. He states he will be discharged back to friend's house and that he will follow-up with rehab on the outpatient side. He states this friend is able to pick him up tomorrow. At this time patient denies any suicidal or homicidal ideations, intent or plan. Patient denies any auditory, visual hallucinations and denies any paranoia or delusions. Patient denies any side effects from the medications and has been compliant with meds. Mental Status Exam: General Appearance: Patient appears to be stated age is alert, directable, and cooperative. Behavior: Patient is calmly seated without any agitated behavior. Antagonistic at times Speech: Patient's speech is fluent and nonpressured. Mood/Affect: Mood is improving mildly, affect is congruent and constricted. Suicidality/Homicidality: Patient denies having any suicidal or homicidal ideation intent or plan. Perceptions: Patient denies any visual hallucinations and denies any auditory hallucinations Though content/process: There is no evidence of any delusional thought content and thought process is linear and goal-directed. Memory and concentration: AOX3, grossly intact for the purposes of this session Judgment and insight: Improving mildly Assessment Unspecified mood disorder Cannabis use disorder Cocaine use disorder, in sustained remission Plan: -Patient continues to meet criteria for inpatient psychiatric admission for symptom stabilization and safety. Patient has signed adult voluntary form and medication consent and was placed in patient's chart. -Medications: Continue lithium 100 mg at bedtime and ER 900 mg at bedtime for mood stabilization, Remeron 7.5 mg at bedtime for mood/sleep, melatonin 10 mg at bedtime for sleep -When necessary Ativan and Haldol for agitation/aggression. -Labs: TSH, creatinine WNL. [place] level ordered for tomorrow morning given increase dose -SW on board for discharge planning. Encouraged the patient to participate in milieu. Anticipate discharge to friends tomorrow
[2024-09-15 08:53] VITALS: BP 115/81; PULSE 85
--- NOTE | 2024-09-15 12:59 | P.DS ---
Providers Date of admission: 09/09/24 20:03 Expected date of discharge: 09/15/24 Attending physician: Quynh Bailey MD Consults: 09/09/24 20:08 Consult Physician Routine Consulting Provider: Jennifer Barajas Consult Reason/Comments: H & P Do you want consulting provider notified?: Already Contacted Primary care physician: Stated None - Discharge Diagnosis(es) (1) Unspecified mood [affective] disorder Current Visit: Yes Status: Acute Priority: High (2) Cannabis use disorder, mild, abuse Current Visit: Yes Status: Acute Priority: Low (3) Cocaine use disorder in remission Current Visit: No Status: Chronic Priority: Low Hospital Course: Admission HPI: Admission note was completed by documentation writer "Patient presented to the hospital with reportedly manic like symptoms and suicidal ideations. EPS note states, "Upon assessment pt is agreeable to speak with RN. Pt was cooperative initally with answering questions. Pt gave a back ground that he is homeless and has no where to go. He is unable to return to [facility] but would not disclose why. He states he has not friends or family to stay with and no source of income. He attempted to go to [facility] today but they declined because they wanted records from [place] per pt. Pt appears unkempt and disheleved. RN was speaking with pt about options and provided assistance, at this point pt began to pace and become agitated. RN tried to redirect pt to have a seat and talk with RN. He become more agitated and threw and smashed his water. He began to yell at RN and say, "how are you sitting there so calmly like you can help me, do you just want me to cut my throat or wrists in front of you"? Pt was escalating and RN went in the franco to get his RN for medications. Pt then began to punch the monae and grabbed the sheet and put it around his neck. He then put it over the door and tried to shut the door. Security and other staff were present and removed all items from the room. Pt was agreeable to IM medications and restraints were not used. Pt was recently discharged from two facilities and still has not f ollowed up with [facility]. He is now closed to services. Pt is not compliant with treatment and stopped taking his medications. 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 He is currently on an inhaler and zpak. Pt was not cooperative with whole assessment and unwilling to communicate with this RN. Pt was petitioned as he is impulsive and a risk to self and others." Patient seen and evaluated on the unit and was agreeable with speaking to documentation writer in office. He was notably irritable, expressing that he has been telling several staff members the same thing. He states feeling "tired" and reported difficulties with sleep. He mention his ribs are sore however would not elaborate on the reasons behind this. He did receive as needed Tylenol for this earlier. He states since being discharged in the hospital things have been "not great" due to homelessness. He is no longer on Depakote and states he is now on lithium 600 mg and and wishes to stay on this medication. He reports yesterday experiencing suicidal ideations and auditory hallucinations however patient denies any suicidal or homicidal ideations intent or plan at this time. At this time patient denies any auditory or visual hallucinations. Patient denies any flight of ideas racing thoughts and increased in goal directed behavior. UDS was positive for cannabis only. Awaiting records from [facility] as he was recently discharged from them roughly 1 month ago." Hospital course: Upon admission to the unit patient was directable and agreeable to commence treatment and signed adult voluntary form.. Patient got along well with other patients on the unit and followed unit protocol. Patient was compliant with the medications and denied any side effects throughout hospital course. Patient was started on lithium and this is increased to 100 mg at bedtime, ER 900 mg at bedtime for mood stabilization, Remeron started at 7.5 mg at bedtime for mood/sleep, melatonin increased to 10 mg at bedtime for sleep. lithium level was 0.4. Patient spoke of his stressors and engaged in therapy both group and individual. Patient was also seen by medical team for history and physical exam. Throughout the course of the hospitalization patient gradually improved with regards to mood, anxiety, sleep and returned back to their baseline level of functioning. On the day of discharge patient denied any suicidal or homicidal ideations intent or plan denied any auditory or visual hallucinations. The patient denied any access to guns or weapons. Patient denied any paranoia and did not endorse any delusions. Patient does not have a significant history of substance abuse and was counseled on abstaining from all substances including alcohol and marijuana. Patient was also counseled on the medications and need for regular compliance and was encouraged to follow-up with their outpatient appointment for mental health and also for primary care. Patient to be discharged to friend's house with [facility] follow-up. Mental status exam: General Appearance: Patient appears to be stated age is alert, pleasant, and cooperative. Patient is in no acute distress and has good hygiene and grooming Behavior: Patient is calmly seated without any agitated behavior. Speech: Patient's speech is fluent and nonpressured. Mood/Affect: Patient reports their mood is "better", affect is congruent and euthymic. Suicidality/Homicidality: Patient denies having any suicidal or homicidal ideation intent or plan. Perceptions: Patient denies any auditory or visual hallucinations. Though content/process: There is no evidence of any delusional thought content and thought process is linear and goal-directed. More future oriented Memory and concentration: AOX3, grossly intact for the purposes of this session. Can spell "WORLD" backwards correctly. Judgment and insight: Fair Impression: Unspecified mood disorder Cannabis use disorder Cocaine use disorder, in sustained remission Plan: -Continue with discharge today as patient has improved and stabilized psychiatrically and is not currently an imminent threat to themself and/or others. -Continue medications: [place] 100 mg at bedtime and ER 900 mg at bedtime for mood stabilization, Remeron 7.5 mg at bedtime, melatonin 10 mg at bedtime, Atarax 75 mg 3 times daily as needed -Patient was counseled on the need for medication compliance and appropriate follow-up at mental health and also primary care for medical issues. Patient verbalized understanding and agreed. -Social work to help coordinate patients discharge today. also to ensure safe home environment that guns/weapons are either removed from the home or locked away. Social work also to arrange for patients follow up appointments with [facility] for psychiatric care along with follow up with primary care provider. -Patient counseled on abstaining from recreational drugs and marijuana and alcohol. Was informed/educated on the adverse effects on their physical and mental health. Patient verbally agreed and understood. -Patient was instructed to return to the hospital or seek immediate medical care if their psychiatric or medical symptoms do worsen or reoccur. Abnormal Labs 09/09/24 09/10/24 17:10 10:28 BUN 22 H Glucose 108 H Triglycerides 200.00 H Cholesterol 233.00 H LDL Cholesterol, Calc 137.3 H U Marijuana (THC) Screen Detected H Vital Signs Temp 97.0 F L 09/14/24 08:47 Pulse 85 09/15/24 08:52 Resp 18 09/14/24 08:47 BP 115/81 09/15/24 08:52 Pulse Ox 96 09/14/24 08:47 FiO2 Allergies Allergy/AdvReac Type Severity Reaction Status Date / Time No Known Allergies Allergy Verified 09/09/24 17:50 Patient Condition at Discharge: Stable Plan - Discharge Summary Discharge Rx Participant: No New Discharge Prescriptions: New [place] Carbonate 150 mg PO HS 30 Days #30 cap Mirtazapine [Remeron] 7.5 mg PO HS 30 Days #15 tab hydrOXYzine pamoate [Vistaril] 75 mg PO TID PRN 30 Days #90 cap PRN Reason: Anxiety [place] Carbonate ER [Lithobid] 900 mg PO HS 30 Days #60 tab Melatonin 10 mg PO HS 30 Days #60 tab Discontinued methylPREDNISolone [Medrol Dose Pack] See Taper PO DIRECTED [place] Carbonate 600 mg PO HS Albuterol Inhaler [Ventolin Hfa Inhaler] 2 puff INHALATION RT-Q4H PRN PRN Reason: Shortness Of Breath Azithromycin [Zithromax] 500 mg PO DAILY Discharge Medication List [place] Carbonate 150 mg PO HS 30 Days #30 cap 09/15/24 [Rx] [place] Carbonate ER [Lithobid] 900 mg PO HS 30 Days #60 tab 09/15/24 [Rx] Melatonin 10 mg PO HS 30 Days #60 tab 09/15/24 [Rx] Mirtazapine [Remeron] 7.5 mg PO HS 30 Days #15 tab 09/15/24 [Rx] hydrOXYzine pamoate [Vistaril] 75 mg PO TID PRN 30 Days #90 cap 09/15/24 [Rx] Follow up Appointment(s)/Referral(s): [facility] [Outside] - 09/16/24 1:00 pm (09[facility]-STAFF[facility] - 1 Week Patient Instructions/Handouts: Cocaine Abuse (DC), Mood Disorders (DC), Cannabis Abuse (DC) Activity/Diet/Wound Care/Special Instructions: [facility] Discharge Info Avoid the use of street drugs and alcohol. Take all medications as prescribed. When you are in need of refills on your medications, please contact your outpatient medical provider and/or outpatient psychiatrist. [facility] for aftercare treatment. If symptoms return or become worse, call the crisis line at or and/or visit the nearest emergency room for assistance. [place] [facility]icide and Crisis Lifeline - call or text 818 Discharge Disposition: HOME SELF-CARE
== END 2024-09-15 13:31 | disposition home or self-care (01) | DRG 750 ==
LOC: EC 16:05 → 3MHU 20:03
PROVIDERS: ADMIT Psychiatry & Neurology Psychiatry; ATTEND Psychiatry & Neurology Psychiatry
DX: F31.2 Bipolar disorder, current episode manic severe with psychotic features (principal); F12.10 Cannabis abuse, uncomplicated; F14.11 Cocaine abuse, in remission; R45.851 Suicidal ideations; F43.10 Post-traumatic stress disorder, unspecified; F41.9 Anxiety disorder, unspecified; J45.909 Unspecified asthma, uncomplicated; F17.200 Nicotine dependence, unspecified, uncomplicated; Z59.00 Homelessness unspecified; Z91.199 Patient's noncompliance with other medical treatment and regimen due to unspecified reason; Z91.128 Patient's intentional underdosing of medication regimen for other reason; Z86.14 Personal history of Methicillin resistant Staphylococcus aureus infection; Z56.0 Unemployment, unspecified
CPT/HCPCS: 80053; 80061; 80178; 80306; 81003; 82075; 82248; 83036; 84443; 85025; 87635; 96372; 99285